=== PATIENT | female | born 2000 | race Caucasian/White ===

== ENCOUNTER 2023-10-30 05:50 | Emergency (ER) | payer BC, SELFPAY ==
[2023-10-30 05:50] VITALS: BP 147/95; PULSE 147; RESP 28; TEMP 36.1; O2SAT 95; BMI 24.7
--- NOTE | 2023-10-30 06:07 | RAD_ITS ---
STUDY: X-RAY CHEST REASON FOR EXAM: Female, 23 years old. Dyspnea TECHNIQUE: Frontal view of the chest COMPARISON: None. FINDINGS: The lungs are clear. There are no pleural effusions. There is no pneumothorax. The heart is normal in size. The visualized osseous structures are within normal limits. RAD/Chest 1 View (Portable) IMPRESSION: No acute thoracic pathology. Electronically Signed: Desean Gray MD at 7:25 EDT ,
--- NOTE | 2023-10-30 06:07 | ED.VIS.DYS ---
HPI History of Present Illness Chief Complaint: Asthma Informant: patient and spouse/S.O. Narrative Narrative: 23-year-old female presenting to the emergency room with a chief complaint of asthma. Patient states she has had asthma for many years. Her current therapy includes Advair and her rescue inhaler. She also has a history of allergies as well as eczema. She was seeing pulmonology in [place] but she moved here last weekend. She notes that she has noted over the past couple days she has been using her inhaler more than normal. However when she woke this morning around 5 AM she noted herself to be extremely short of breath. She notes wheezing. No fevers. Minor rhinorrhea. [facility] Medical History Anxiety Allergies Seizure Asthma Home Medications ?Medication ?Instructions ?Recorded ?Last Taken ?Type albuterol sulfate 90 mcg/actuation 2 inh inhalation Q4H PRN shortness 10/30/23 Unknown History aerosol inhaler (Proventil HFA) of breath or wheezing fexofenadine 60 mg tablet (Dottie 60 mg PO BID 10/30/23 Unknown History Allergy) Allergy/AdvReac Type Severity Reaction Status Date / Time No Known Allergies Allergy Verified 10/30/23 05:51 Social History Smoking Status: Never smoker ROS ROS ED Constitutional Constitutional ED: Denies chills, fever(s) or weight loss Eyes Eyes: Denies change in vision or diplopia ENT ENT ED: Reports rhinorrhea; Denies ear pain or sore throat Cardiovascular Cardiovascular: Denies chest pain, orthopnea, palpitations or racing heartbeat Respiratory/Chest Respiratory/Chest: Reports dyspnea and dyspnea on exertion; Denies cough or orthopnea Gastrointestinal Gastrointestinal: Denies abdominal pain, diarrhea, nausea or vomiting Genitourinary Genitourinary ED: Denies dysuria, hematuria or urinary frequency Musculoskeletal Musculoskeletal: Denies arthralgias or myalgias Integumentary Denies abscess or rash Neurologic Neurologic: Denies headache(s) or weakness Psychiatric Psychiatric: Denies anxiety, depression, suicidal ideation or suicidal thoughts Endocrine Endocrinology: Denies polydipsia, polyphagia or polyuria Allergic/Immunologic Allergic/Immunologic ED: Denies mouth swelling, tongue swelling or urticaria EXAM Physical Exam Const Vital Signs: 10/30/23 05:50 10/30/23 05:50 10/30/23 06:11 Temperature 96.9 F L Temperature Source Temporal Pulse Rate 147 H 121 H Respiratory Rate 28 H 18 Respiratory Effort Short of Breath Labored Respiratory Pattern Normal Blood Pressure 147/95 H Blood Pressure Mean 112 Pulse Ox 95 Oxygen Delivery Method Room Air 10/30/23 06:25 Temperature Temperature Source Pulse Rate 111 H Respiratory Rate 20 H Respiratory Effort Respiratory Pattern Blood Pressure Blood Pressure Mean Pulse Ox Oxygen Delivery Method Positive well nourished and well developed General Appearance ED: well developed HEENT Reports normocephalic, head/scalp atraumatic and moist mucous membranes Eyes PERRL and EOMs intact bilaterally Neck no lymphadenopathy, supple and no JVD Resp Resp Narrative: Patient appears tachypneic but is not demonstrating any retractions or significant accessory muscle use. Auscultation: wheezes expiratory wheezes, inspiratory wheezes and throughout and diminished lung sounds bilateral and diffuse Cardio regular rate, regular rhythm and no murmurs Rate: tachycardic GI normal to inspection, nondistended, normoactive bowel sounds and non-tender Palpation: soft Back/Spine no CVA tenderness and normal ROM Extremity normal to inspection General Extremety ED: Negative for edema General Extremity: Negative for edema Neuro oriented x3 and CN's II-XII intact bilaterally Sensorium / Orientation: alert Motor Exam: strength 5/5 throughout Psych mental status grossly normal Mood & Affect: Negative for depressed or tearful Skin no rashes or lesions noted and no wounds MDM MDM MDM Narrative Medical decision making narrative: Differential diagnosis includes but not limited to acute bronchitis with bronchospasm asthma exacerbation pneumonia pleural effusion pneumothorax My independent interpretation of the chest x-ray is no acute process. Patient received DuoNeb and albuterol aerosols as well as prednisone. Repeat examination finds the patient to be feeling significantly better with improved aeration. She states she has enough albuterol nebulizer solution at home. She needs a refill on her rescue inhaler and I will also be writing for burst dose prednisone. I can refer her to local pulmonology as she is new to the area. Patient to return if worsening or concerns Radiography Diagnostic Testing: Clinical Impression(s) from Imaging Studies Chest X-Ray 10/30/23 06:07 IMPRESSION: No acute thoracic pathology. Electronically Signed: Desean Gray MD at 7:25 EDT , Discharge Plan Triage Chief Complaint: Asthma ED Provider: Bairon Landrum Dx/Rx/DC Orders Prescriptions: No Action albuterol sulfate [Proventil HFA] 90 mcg/actuation HFA aerosol inhaler 2 inh inhalation Q4H PRN (Reason: shortness of breath or wheezing) fexofenadine [Dottie Allergy] 60 mg tablet 60 mg PO BID Primary Care Provider: Care Physician,No Primary Referrals: NOT,DEFINED [Non-Staff] - Print Language: Azeri
[2023-10-30 06:11] VITALS: PULSE 121; RESP 18
[2023-10-30] MEDS: Ipratropium/Albuterol Sulfate 3 ML AMPUL.NEB INHALATION (06:11)
[2023-10-30] MEDS: predniSONE 20 MG Tablet 60 MG PO (06:16)
[2023-10-30 06:25] VITALS: PULSE 111; RESP 20
[2023-10-30] MEDS: Albuterol 2.5 MG/3 ML VIAL.NEB. INHALATION ×3 (06:25)
[2023-10-30 07:37] VITALS: BP 128/76; PULSE 84; RESP 17; TEMP 36.7; O2SAT 99
== END 2023-10-30 07:39 | disposition home or self-care (01) ==
PROVIDERS: Emergency Provider Emergency Medicine; Visit Provider Emergency Medicine
DX: J45.909 Unspecified asthma, uncomplicated (principal); Z79.51 Long term (current) use of inhaled steroids
CPT/HCPCS: 71045; 94640; 99283

== ENCOUNTER 2023-11-25 19:05 | Emergency (ER) | payer BC, SELFPAY ==
[2023-11-25 19:05] VITALS: BP 134/92; PULSE 115; RESP 25; TEMP 36.1; O2SAT 97; BMI 24.0
[2023-11-25 19:23] VITALS: PULSE 100; RESP 18
[2023-11-25] MEDS: Albuterol 2.5 MG/3 ML VIAL.NEB. INHALATION ×2 (19:23→20:30)
[2023-11-25 19:27] VITALS: O2SAT 98
[2023-11-25 20:05] VITALS: BP 124/92; PULSE 108; RESP 17; O2SAT 96
[2023-11-25 20:30] VITALS: PULSE 110; RESP 18
[2023-11-25] MEDS: Albuterol Sulfate 8 gm Inhaler (60 puffs) 2 PUFF INHALATION (20:30)
--- NOTE | 2023-11-25 20:34 | ED.VIS.DYS ---
HPI History of Present Illness Chief Complaint: Asthma Informant: patient Narrative Narrative: Patient 23-year-old female with history of asthma as well as multiple environmental allergies. She is presenting to the ER today for worsening shortness of breath. She states she ran out of her albuterol inhaler 3 to 4 days ago and her breathing's been getting worse. She has associated chest tightness. She states that she uses her inhaler 4-5 times a day. She is post to be on some sort of maintenance inhaler (she thinks it might be Advair) as well as a daily allergy medicine?Dottie but is not good at taking medicines and does not take them regularly. She states that she was seen in the ER about 2 weeks ago for an asthma exacerbation. At that time she had been prescribed steroids but did not take them all the way. She did take 60 mg of prednisone prior to arrival because of her respiratory symptoms. She denies any recent fevers. She notes she recently relocated from [place] to [place] and is living in her boyfriend's basement. She thinks living in the basement is triggering her breathing. No fever reported. No other complaints or concerns at this time. [facility] Medical History Anxiety Allergies Seizure Asthma Home Medications ?Medication ?Instructions ?Recorded ?Last Taken ?Type albuterol sulfate 90 mcg/actuation 2 inh inhalation Q4H PRN shortness 10/30/23 Unknown History aerosol inhaler (Proventil HFA) of breath or wheezing albuterol sulfate 90 mcg/actuation 2 puff inhalation Q4H PRN PRN 10/30/23 Unknown Rx aerosol inhaler (Ventolin HFA) Wheezing ##1 fexofenadine 60 mg tablet (Dottie 60 mg PO BID 10/30/23 Unknown History Allergy) levetiracetam 250 mg tablet 250 mg PO Q12H 11/25/23 Unknown History (Keppra) prednisone 20 mg tablet 40 mg (2 x 20 mg) PO DAILY #8 tabs 11/25/23 Unknown Rx Allergy/AdvReac Type Severity Reaction Status Date / Time No Known Allergies Allergy Verified 11/25/23 19:05 Social History Smoking Status: Never smoker ROS ROS ED Constitutional Constitutional ED: Denies chills or fever(s) Cardiovascular Cardiovascular: Denies chest pain or palpitations Respiratory/Chest Respiratory/Chest: Reports cough and dyspnea; Denies sputum Gastrointestinal Gastrointestinal: Denies nausea or vomiting Neurologic Neurologic: Denies weakness EXAM Physical Exam Const Vital Signs: 11/25/23 19:05 11/25/23 19:23 11/25/23 19:27 Temperature 96.9 F L Temperature Source Temporal Pulse Rate 115 H 100 Respiratory Rate 25 H 18 Respiratory Effort Short of Breath Respiratory Depth Shallow Respiratory Pattern Normal Tachypnea Blood Pressure 134/92 H Blood Pressure Mean 106 Pulse Ox 97 Oxygen Delivery Method Room Air Room Air 11/25/23 20:05 Temperature Temperature Source Pulse Rate 108 H Respiratory Rate 17 Respiratory Effort Respiratory Depth Respiratory Pattern Blood Pressure 124/92 H Blood Pressure Mean 102 Pulse Ox 96 Oxygen Delivery Method Room Air Positive well nourished and well developed General Appearance ED: well developed and NAD HEENT Reports moist mucous membranes Eyes PERRL and EOMs intact bilaterally Neck supple and no JVD Chest Wall Chest Narrative: No chest wall tenderness or crepitus appreciated Resp normal respiratory effort Resp Narrative: Scattered in-store expiratory wheezing especially at the bases present Auscultation: Negative for rhonchi or diminished lung sounds Cardio regular rate and regular rhythm GI non-tender and non-distended Extremity normal to inspection General Extremety ED: Negative for edema General Extremity: Negative for edema Neuro oriented x3 Sensorium / Orientation: alert Motor Exam: Negative for general weakness Psych mental status grossly normal Skin no wounds MDM MDM MDM Narrative Medical decision making narrative: Patient is evaluated for worsening wheezing and chest tightness. She reports this feels like an asthma exacerbation. She reports poorly controlled asthma. Patient received an albuterol treatment prior to my arrival. She states she is feeling much better and her chest tightness has resolved. She is requesting a refill of albuterol inhaler. Patient is also scattered wheezing will be given a second albuterol treatment. Patient states she does have a nebulizer machine at home but is requesting other tubing were used today. This be given to her. Patient counseled at length the importance of compliance with her maintenance medications as well as following up with a primary care doctor. Will be given referral. Is given return precautions. Will be given a prescription for 4 more days of prednisone. Patient and significant other verbalized agreement or stands plan. Discharged home in stable improved condition. As patient has wheezing respiratory symptoms relieved with aerosols I do not suspect a more serious process such as pneumothorax, pneumonia or pulmonary emboli. I do not think she requires further workup at this time as she overall is quite well-appearing. Discharge Plan Triage Chief Complaint: Asthma ED Provider: Maida Buckley Dx/Rx/DC Orders Clinical Impression: Acute asthma exacerbation Instructions: ED Asthma, Acute (Adult) Prescriptions: New prednisone 20 mg tablet 40 mg PO DAILY Qty: 8 0RF No Action albuterol sulfate [Proventil HFA] 90 mcg/actuation HFA aerosol inhaler 2 inh inhalation Q4H PRN (Reason: shortness of breath or wheezing) fexofenadine [Dottie Allergy] 60 mg tablet 60 mg PO BID albuterol sulfate [Ventolin HFA] 90 mcg/actuation HFA aerosol inhaler 2 puff inhalation Q4H PRN PRN (Reason: Wheezing) Qty: 1 0RF levetiracetam [Keppra] 250 mg tablet 250 mg PO Q12H Patient Comments: pt unsure if this is the right dosage Primary Care Provider: Care Physician,No Primary Referrals: Renay Rojo [Non-Staff] - 1-2 Weeks Care Physician,No Primary [Primary Care Provider] - Activity Restrictions/Additional Instructions: It is very important to use your maintenance inhaler and take your allergy medicine daily as recommended. Please use albuterol either nebulizer or metered-dose inhaler every 4-6 hours as needed for symptoms. Take all steroids as prescribed. Please follow-up with your primary care doctor. Return if you have a progression worsening your symptoms. Print Language: Indonesian Disposition Disposition: Home, Self Care
== END 2023-11-25 21:05 | disposition home or self-care (01) ==
LOC: ED 21:03
PROVIDERS: Emergency Provider Emergency Medicine; Visit Provider Emergency Medicine
DX: J45.901 Unspecified asthma with (acute) exacerbation (principal); Z79.51 Long term (current) use of inhaled steroids
CPT/HCPCS: 94640; 99283

== ENCOUNTER 2024-04-14 06:48 | Emergency (ER) | payer BC, SELFPAY ==
[2024-04-14 06:48] VITALS: BP 136/83; PULSE 134; RESP 24; TEMP 36.4; O2SAT 91; BMI 25.5
[2024-04-14 06:56] VITALS: PULSE 112
--- NOTE | 2024-04-14 07:03 | ED.VIS.DYS ---
HPI History of Present Illness Chief Complaint: Asthma Informant: patient Narrative Narrative: 24-year-old female history of allergies asthma and eczema presenting to the emergency room with dyspnea. Patient states that she has had progressively worsening breathing over the past 2 days. She woke during the night with worsening shortness of breath. [facility] Medical History Anxiety Allergies Seizure Asthma Home Medications ?Medication ?Instructions ?Recorded ?Last Taken ?Type albuterol sulfate 90 mcg/actuation 2 inh inhalation Q4H PRN shortness 10/30/23 Unknown History aerosol inhaler (Proventil HFA) of breath or wheezing albuterol sulfate 90 mcg/actuation 2 puff inhalation Q4H PRN PRN 10/30/23 Unknown Rx aerosol inhaler (Ventolin HFA) Wheezing ##1 fexofenadine 60 mg tablet (Dottie 60 mg PO BID 10/30/23 Unknown History Allergy) albuterol sulfate 90 mcg/actuation 2 puff inhalation Q4H PRN PRN 04/14/24 Unknown Rx aerosol inhaler (Ventolin HFA) Wheezing ##1 prednisone 20 mg tablet 60 mg (3 x 20 mg) PO DAILY #15 04/14/24 Unknown Rx TABLETS Allergy/AdvReac Type Severity Reaction Status Date / Time No Known Allergies Allergy Verified 04/14/24 06:49 Social History Smoking Status: Never smoker [facility] ED Constitutional Constitutional ED: Denies chills, fever(s) or weight loss Eyes Eyes: Denies change in vision or diplopia ENT ENT ED: Denies ear pain, rhinorrhea or sore throat Cardiovascular Cardiovascular: Denies chest pain, orthopnea, palpitations or racing heartbeat Respiratory/Chest Respiratory/Chest: Reports cough, dyspnea and dyspnea on exertion; Denies orthopnea Gastrointestinal Gastrointestinal: Denies abdominal pain, diarrhea, nausea or vomiting Genitourinary Genitourinary ED: Denies dysuria, hematuria or urinary frequency Musculoskeletal Musculoskeletal: Denies arthralgias or myalgias Integumentary Denies abscess or rash Neurologic Neurologic: Denies headache(s) or weakness Psychiatric Psychiatric: Denies anxiety, depression, suicidal ideation or suicidal thoughts Endocrine Endocrinology: Denies polydipsia, polyphagia or polyuria Allergic/Immunologic Allergic/Immunologic ED: Denies mouth swelling, tongue swelling or urticaria EXAM Physical Exam Const Vital Signs: 04/14/24 06:48 04/14/24 06:48 04/14/24 06:56 Temperature 97.5 F L Temperature Source Oral Pulse Rate 134 H 112 H Respiratory Rate 24 H Respiratory Effort Short of Breath Respiratory Depth Shallow Respiratory Pattern Tachypnea Blood Pressure 136/83 H Blood Pressure Mean 100 Pulse Ox 91 Oxygen Delivery Method Room Air 04/14/24 07:15 04/14/24 07:26 04/14/24 07:35 Temperature 98 F Temperature Source Pulse Rate 139 H 132 H 134 H Respiratory Rate 26 H 20 H 22 H Respiratory Effort Respiratory Depth Respiratory Pattern Normal Blood Pressure 118/85 H 124/89 H Blood Pressure Mean 96 100 Pulse Ox 93 97 Oxygen Delivery Method Room Air Positive well nourished and well developed General Appearance ED: well developed and NAD HEENT Reports normocephalic, head/scalp atraumatic and moist mucous membranes Eyes PERRL and EOMs intact bilaterally Neck no lymphadenopathy, supple and no JVD Resp normal respiratory effort Auscultation: wheezes expiratory wheezes and inspiratory wheezes Cardio regular rate, regular rhythm and no murmurs Rate: tachycardic GI normal to inspection, nondistended, normoactive bowel sounds and non-tender Palpation: soft Back/Spine no CVA tenderness and normal ROM Extremity normal to inspection General Extremety ED: Negative for edema General Extremity: Negative for edema Neuro oriented x3 and CN's II-XII intact bilaterally Sensorium / Orientation: alert Motor Exam: strength 5/5 throughout Psych mental status grossly normal Mood & Affect: Negative for depressed or tearful Skin no wounds Skin Narrative: eczema MDM MDM MDM Narrative Medical decision making narrative: Differential diagnosis includes but not limited to asthma exacerbation pneumonia pneumothorax pleural effusion or bronchitis Patient received prednisone 60 mg as well as 2 DuoNebs. Pulse ox is up to 97%. She is tachycardic and shaky most likely from the albuterol. There are improved breath sounds bilaterally she overall feels better. She needs a new inhaler which I will write for. She states she has plenty of solution for the nebulizers at home. She also be placed on burst prednisone. She will be given pulmonology for follow-up if she wishes. Patient to return if worsening or concerns History & Record Review Discussion w/independent historian: Patient Discharge Plan Triage Chief Complaint: Asthma ED Provider: Bairon Landrum Dx/Rx/DC Orders Clinical Impression: Asthma exacerbation, Acute dyspnea Instructions: What Is Asthma Prescriptions: New prednisone 20 mg tablet 60 mg PO DAILY Qty: 15 0RF albuterol sulfate [Ventolin HFA] 90 mcg/actuation HFA aerosol inhaler 2 puff inhalation Q4H PRN PRN (Reason: Wheezing) Qty: 1 0RF Rx Instructions: with spacer No Action albuterol sulfate [Proventil HFA] 90 mcg/actuation HFA aerosol inhaler 2 inh inhalation Q4H PRN (Reason: shortness of breath or wheezing) fexofenadine [Dottie Allergy] 60 mg tablet 60 mg PO BID albuterol sulfate [Ventolin HFA] 90 mcg/actuation HFA aerosol inhaler 2 puff inhalation Q4H PRN PRN (Reason: Wheezing) Qty: 1 0RF Primary Care Provider: Care Physician,No Primary Referrals: Jd Hinds DO [Med Staff - Active Staff] - As Needed (for pulmonology evaluation if needed) Care Physician,No Primary [Primary Care Provider] - Print Language: Setswana Disposition Disposition: Home, Self Care
[2024-04-14 07:15] VITALS: BP 118/85; PULSE 139; RESP 26; O2SAT 93
[2024-04-14] MEDS: Ipratropium/Albuterol Sulfate 3 ML AMPUL.NEB INHALATION ×2 (07:20)
--- NOTE | 2024-04-14 07:22 | EKG12_ITS ---
Test Reason : DYSP Blood Pressure : */* mmHG Vent. Rate : 132 BPM Atrial Rate : 132 BPM P-R Int : 138 ms QRS Dur : 74 ms QT Int : 288 ms P-R-T Axes : 86 -41 81 degrees QTcB Int : 426 ms Sinus tachycardia Right atrial enlargement Left axis deviation Pulmonary disease pattern Inferior infarct , age undetermined Abnormal ECG Confirmed by CHANDNI PRASAD, VAL ([id number]), editor magazine RUTH LACY ([id number]) on 04/16/2024 7:24:53 AM Referred By: NBA Confirmed By: VAL TARIQ MD
[2024-04-14 07:26] VITALS: PULSE 132; RESP 20
[2024-04-14 07:35] VITALS: BP 124/89; PULSE 134; RESP 22; TEMP 36.6; O2SAT 97
[2024-04-14] MEDS: predniSONE 20 MG Tablet 60 MG PO (07:36)
== END 2024-04-14 08:57 | disposition home or self-care (01) ==
PROVIDERS: Emergency Provider Emergency Medicine; Visit Provider Emergency Medicine
DX: J45.901 Unspecified asthma with (acute) exacerbation (principal); R06.00 Dyspnea, unspecified
CPT/HCPCS: 93005; 94640; 99283

== ENCOUNTER 2024-07-11 18:16 | Emergency (ER) | payer BC, SELFPAY ==
[2024-07-11 18:17] VITALS: BP 148/96; PULSE 130; RESP 22; TEMP 36; O2SAT 97; BMI 23.5
--- NOTE | 2024-07-11 20:12 | EDS_ITS ---
HPI HPI - GI History of Present Illness Chief Complaint: Diarrhea Informant: patient Abdominal Pain/Flank Pain Onset: Today Context: Gradual Onset Timing: Intermittent Quality: Cramping Current Severity: Gone Maximum Severity: Mild Worsened by: Nothing Relieved by: Nothing Nausea/Vomiting/Emesis GI Symptom: Positive for Nausea and Vomiting Onset: Today Severity: Mild Diarrhea/Melena/Hematochezia GI Symptom: Positive for Diarrhea Onset: Today Stool Quality: Positive for Loose Severity: Mild Associated Symptoms Associated Symptoms: Negative for Dysuria, Frequency, Hematuria or Urgency Narrative Narrative: 24-year-old female history of anxiety, seizures and asthma. Has had nausea vomiting diarrhea today. Abdominal cramping. No fever. No dysuria. No hematemesis. No melena. No prior abdominal surgeries. Says her last menstrual period was 2 weeks ago and is not believe she is . Prior similar symptoms: Yes Recent Illness/Hospitalization: No [facility] Medical History Anxiety Allergies Seizure Asthma Home Medications ?Medication ?Instructions ?Recorded ?Last Taken ?Type albuterol sulfate 90 mcg/actuation 2 inh inhalation Q4 H PRN shortness 10/30/23 Unknown History aerosol inhaler (Proventil HFA) of breath or wheezing albuterol sulfate 90 mcg/actuation 2 puff inhalation Q 4H PRN PRN 10/30/23 Unknown Rx aerosol inhaler (Ventolin HFA) Wheezing ##1 fexofenadine 60 mg tablet (Dottie 60 mg PO BID Unknown History Allergy) albuterol sulfate 90 mcg/actuation 2 puff inhalation Q 4H PRN PRN 04/14/24 Unknown Rx aerosol inhaler (Ventolin HFA) Wheezing ##1 Allergy/AdvReac Type Severity Reaction Status Date / Time No Known Allergies Allergy Verified 07/11/24 18:17 Social History Smoking Status: Never smoker ROS ROS ED ROS Narrative Nausea, vomiting and diarrhea. Constitutional Constitutional ED: Denies chills or fever(s) ENT ENT ED: Denies ear pain Cardiovascular Cardiovascular: Denies chest pain Respiratory/Chest Respiratory/Chest: Denies cough Gastrointestinal Gastrointestinal: Reports abdominal pain, diarrhea, nausea and vomiting; Denies constipation or melena Genitourinary Genitourinary ED: Denies dysuria or hematuria Musculoskeletal Musculoskeletal: Denies arthralgias Integumentary Denies abscess Neurologic Neurologic: Denies headache(s) Psychiatric Psychiatric: Denies anxiety Endocrine Endocrinology: Denies polydipsia Hematologic/Lymphatic Hematologic/Lymphatic: Denies easy bleeding Allergic/Immunologic Allergic/Immunologic ED: Denies mouth swelling, tongue swelling or urticaria EXAM Physical Exam Narrative Exam Narrative: Well-appearing 24-year-old female. Vital signs are stable she is tachycardic when she initially presented in triage. That was almost 2 hours ago. H EENT exam pupils round reactive light. Mildly dry mucous membranes. No trauma. Neck nontender no JVD. No lymphadenopathy. Lungs clear to auscultation bilaterally. Heart tachycardic rate about 110 no murmur. Chest wall and ribs nontender. Abdomen soft nontender. Normal bowel sounds no peritoneal signs. No distention. No hernia or mass. No obstruction. Right upper and right lower quadrant and epigastric region are completely nontender. Moving all 4 extremities. Nontender no edema. Normal strength and range of motion. Back nontender. Neurologically she is awake alert. Answer questions following commands. NIH 0. Exam consistent with viral gastroenteritis. Mild dehydration. Const Vital Signs: 07/11/24 18:17 Temperature 96.8 F L Temperature Source Temporal Pulse Rate 130 H Respiratory Rate 22 H Blood Pressure 148/96 H Blood Pressure Mean 113 Pulse Ox 97 Oxygen Delivery Method Room Air Positive well nourished and well developed; Negative for obese, cachectic, contractures or unkempt General Appearance ED: well developed and NAD; Negative for unkempt, cachectic, contractures or pallor Nutritional Appearance: Negative for cachectic or obese HEENT Reports dry mucous membranes normocephalic and atraumatic Mouth ED: Yes dry mucous membranes Mouth: dry mucous membranes Eyes PERRL and EOMs intact bilaterally Neck no lymphadenopathy, supple and no JVD Resp normal respiratory effort and clear to auscultation bilaterally Effort and Inspection: Negative for respiratory distress Auscultation: Negative for rales, rhonchi or wheezes Cardio regular rhythm, S1 normal heart sound, S2 normal heart sound and no murmurs; Negative for regular rate Rate: tachycardic GI non-tender, non-distended and no masses Inspection: Negative for abdominal distention Auscultation: normoactive bowel sounds Palpation: soft; Negative for tender, guarding, mass, pulsatile mass or rebound tenderness present Back/Spine no CVA tenderness General Back: Negative for CVA tenderness Cervical Spine: Negative for cervical spine tenderness Thoracic Spine / Upper Back: Negative for thoracic spinal tenderness Lumbar Spine / Lower Back: Negative for lumbar spinal tenderness Coccyx: Negative for other Extremity full ROM General Extremety ED: Negative for edema or tenderness General Extremity: Negative for edema Neuro CN's II-XII intact bilaterally and moves all extremities Sensorium / Orientation: alert, oriented to person, oriented to place and oriented to time; Negative for orientation impaired, confused, lethargic or stuporous Motor Exam: strength 5/5 throughout; Negative for general weakness or strength abnormal Psych mental status grossly normal and thought process normal Appearance: Negative for unkempt Attitude: No agitated Mood & Affect: Negative for depressed, anxious or tearful Skin no wounds General Skin Exam: Negative for jaundice or pallor Lesions: no lesions Rashes: no rashes Trauma: Negative for abrasion Nails: Negative for discolored MDM MDM MDM Narrative Medical decision making narrative: 24-year-old female nausea vomiting diarrhea. Exam is benign other than mild dehydration. There is no right upper or right lower quadrant tenderness there is no abdominal tenderness at all. She does not need any imaging or labs. IV fluids, Zofran and p.o. fluid challenge are reassessed. I believe this is secondary to a viral gastroenteritis. I went back to reevaluate the patient. Nurses told me that she left prior to receiving her IV nausea medication or fluids. History & Record Review Discussion w/independent historian: Patient Additional record(s) reviewed:: Prior ED visit and No prior records Discharge Plan Triage Chief Complaint: Diarrhea Other Complaint: Abd Pain ED Provider: Shukri Matias Dx/Rx/DC Orders Clinical Impression: Viral gastroenteritis, Eloped from emergency department Prescriptions: No Action albuterol sulfate [Proventil HFA] 90 mcg/actuation HFA aerosol inhaler 2 inh inhalation Q4H PRN (Reason: shortness of breath or wheezing) fexofenadine [Dottie Allergy] 60 mg tablet 60 mg PO BID albuterol sulfate [Ventolin HFA] 90 mcg/actuation HFA aerosol inhaler 2 puff inhalation Q4H PRN PRN (Reason: Wheezing) Qty: 1 0RF albuterol sulfate [Ventolin HFA] 90 mcg/actuation HFA aerosol inhaler 2 puff inhalation Q4H PRN PRN (Reason: Wheezing) Qty: 1 0RF Rx Instructions: with spacer Primary Care Provider: Care Physician,No Primary Referrals: Care Physician,No Primary [Primary Care Provider] - Print Language: Azeri Disposition Disposition: Elopement Discharge Date/Time: 07/11/24 20:51
--- NOTE | 2024-07-11 20:48 | ED.RN ---
this nurse was notified of pt leaving by registration. pt did not have an IV in. pt was registrated
== END 2024-07-11 20:51 | disposition left against medical advice (07) ==
LOC: ED 20:39
PROVIDERS: Emergency Provider Emergency Medicine; Visit Provider Emergency Medicine
DX: A08.4 Viral intestinal infection, unspecified (principal); E86.0 Dehydration
CPT/HCPCS: 99282; A4216; J2405

== ENCOUNTER 2024-07-12 06:53 | Emergency (ER) | payer BC, SELFPAY ==
[2024-07-12 06:53] VITALS: BP 146/91; PULSE 127; RESP 18; TEMP 36.7; O2SAT 96; BMI 23.5
--- NOTE | 2024-07-12 07:05 | EDS_ITS ---
HPI History of Present Illness Chief Complaint: Nausea/Vomiting [facility] Medical History Anxiety Allergies Seizure Asthma Home Medications ?Medication ?Instructions ?Recorded ?Last Taken ?Type albuterol sulfate 90 mcg/actuation 2 inh inhalation Q4 H PRN shortness 10/30/23 Unknown History aerosol inhaler (Proventil HFA) of breath or wheezing albuterol sulfate 90 mcg/actuation 2 puff inhalation Q 4H PRN PRN 10/30/23 Unknown Rx aerosol inhaler (Ventolin HFA) Wheezing ##1 fexofenadine 60 mg tablet (Dottie 60 mg PO BID Unknown History Allergy) albuterol sulfate 90 mcg/actuation 2 puff inhalation Q 4H PRN PRN 04/14/24 Unknown Rx aerosol inhaler (Ventolin HFA) Wheezing ##1 Allergy/AdvReac Type Severity Reaction Status Date / Time No Known Allergies Allergy Verified 07/12/24 06:53 Family History no significant family his Social History Smoking Status: Never smoker EXAM Physical Exam Const Vital Signs: 07/12/24 06:53 07/12/24 09:38 Temperature 98.1 F Temperature Source Oral Pulse Rate 127 H 89 Respiratory Rate 18 Blood Pressure 146/91 H 120/70 Blood Pressure Mean 109 86 Pulse Ox 96 Oxygen Delivery Method Room Air MDM MDM MDM Narrative Medical decision making narrative: HISTORY OF PRESENT ILLNESS: Chief complaint: Nausea vomiting abdominal pain 24-year-old female history of asthma, anxiety, seizures viral gastroenteritis presents with nausea, vomiting abdominal pain started last night. No recent travel, no sick contacts, recent antibiotics or hospitalizations. Denies history o, diarrhea f prior abdominal surgeries. Denies any new foods or cookouts. Denies hematemesis melena or hematochezia. Denies urinary frequency urgency or dysuria. REVIEW OF SYSTEMS: Pertinent positives:Nausea vomiting abdominal pain Pertinent negatives: Fever, hematemesis, melena PHYSICAL EXAM: Nursing triage notes reviewed, Vital signs reviewed Constitutional: please see mdm HENT: MMM Eyes: Pupils equal round and reactive to light, Extraocular muscles intact Neck: No stridor, no JVD, full neck ROM Lungs: Clear to auscultation, No wheezing or rales. No increased work of breathing, no conversational dyspnea, no accessory muscle use, no nasal flaring. No respiratory distress noted Heart: Regular rate and rhythm, No murmurs, No rubs and No gallops, 2+ distal pulses (radial, femoral, posterior tibial) in all extremities Abdomen: Soft, there is no tenderness, rigidity, rebound or guarding, no obvious peritoneal signs, no palpable pulsatile abdominal masses, no auscultated abdominal bruit : No CVAT Extremities: No edema Neuro: No new focal neurological deficits, cranial nerves II through XII intact, 5/5 strength in all present extremities. Intact sensation to light touch in all present extremities, 2+ reflexes bilateral patella tendons. Skin: No rash or lesions noted MEDICAL DECISION MAKING: Chief Complaint: please see HPI External records reviewed: Reviewed prior imaging studies. Reviewed ED visit from 07/11/2024, yesterday but apparently left without being seen. Factors affecting care: Asthma, viral gastroenteritis. Social determinants of health: Uses edible THC products History obtained from others: none Consults: none MDM Narrative: Patient was initially tachycardic with heart rate of 127 otherwise afebrile nontoxic-appearing. Exam with diffuse abdominal tenderness but no obvious peritoneal signs. I considered the following differential diagnosis: AAA, small bowel obstruction, abdominal perforation, appendicitis, pancreatitis, hepatobiliary pathology (acute cholecystitis), mesenteric ischemia, pathology (ie nephrolithiasis, pyelonephritis), cannabinol hyperemesis syndrome. I initially treated the patient with 1 L IV fluid, 1 mg of IV Haldol (given concern for cannabinol hyperemesis), 20 mg IV Pepcid. Given her second visit also obtain labs and a CT scan to rule out any life or limb threatening etiology. ALL IMAGES (IF OBTAINED) HAVE BEEN PERSONALLY REVIEWED AND INTERPRETED BY MYSELF. EKG with sinus tachycardia rate of 128, left ax deviation, otherwise normal intervals, no obvious STEMI, no obvious sign of significant electrolyte disturbance Urinalysis no evidence of UTI noted sign of dehydration with urine ketones Urine test is negative CT scan abdomen pelvis without contrast given lack of IV access showed no evidence of obvious acute intra-abdominal pathology On reexam evaluation of his abdominal pain was benign. Heart rate improved to 89. She was able tolerate p.o. Plan for discharge home with prescription for Phenergan. Suspect her presentation related to hyperemesis syndrome secondary to THC. The patient and/or family, caregivers express understanding. The patient and/or family, caregivers agrees with the plan. Shared decision making: I will have a discussion with the patient and or visitors regarding risk/benefits of further testing or admission. They will be made aware of of the risk/benefits inherent in this decision they will be given the opportunity to voice understanding. Total critical care time today provided was at least 0 minutes. This excludes separately billable procedures. Critical care time (if documented) is secondary to the patient having high probability of clinically significant/life threatening deterioration in the patient's condition which required my urgent intervention. Impression: 1. Acute abdominal pain 2. Nausea, vomiting, and diarrhea 3. Tachycardia Dispo: Discharge home This note was generated with Tech urSelf dictation software. It may contain incorrect words, spelling, and punctuation that were not noted in review of the chart prior to signing. Lab Data Labs: Laboratory Results - last 24 hr 07/12/24 07/12/24 07:20 09:30 WBC 19.2 H RBC 4.78 Hgb 14.9 Hct 45.3 MCV 94.8 MCH 31.2 MCHC 32.9 RDW Std Deviation 60.7 H RDW Coeff of Ivy 17.6 H Plt Count 393 MPV 10.4 Immature Gran % (Auto) 0.500 Neut % (Auto) 92.5 H Lymph % (Auto) 2.1 L [place] % (Auto) 4.5 Eos % (Auto) 0.0 Baso % (Auto) 0.4 Absolute Neuts (auto) 17.7 H Absolute Lymphs (auto) 0.41 L Nucleated RBC % 0 Urine Color Yellow Urine Clarity Clear Urine pH 5.0 Ur Specific [place] 1.025 Urine Protein 500 H Urine Glucose (UA) Normal Urine Ketones 150 A* Urine Occult Blood 25 H Urine Nitrite Negative Urine Bilirubin Negative Urine Urobilinogen Normal Ur Leukocyte Esterase Negative Urine RBC 0 SEEN Urine WBC 0 SEEN Ur Squamous Epith Cells 0-5 SEEN Urine Bacteria 0 SEEN Hyaline Casts 0-5 SEEN Urine Mucus 0 SEEN Urine Test Negative Radiography Diagnostic Testing: Clinical Impression(s) from Imaging Studies Abdomen/Pelvis CT 07/12/24 07:23 IMPRESSION: No evidence of acute intra-abdominal process. Reading Location: [id number] Discharge Plan Triage Chief Complaint: Nausea/Vomiting ED Provider: Simone Connolly Dx/Rx/DC Orders Prescriptions: No Action albuterol sulfate [Proventil HFA] 90 mcg/actuation HFA aerosol inhaler 2 inh inhalation Q4H PRN (Reason: shortness of breath or wheezing) fexofenadine [Dottie Allergy] 60 mg tablet 60 mg PO BID albuterol sulfate [Ventolin HFA] 90 mcg/actuation HFA aerosol inhaler 2 puff inhalation Q4H PRN PRN (Reason: Wheezing) Qty: 1 0RF albuterol sulfate [Ventolin HFA] 90 mcg/actuation HFA aerosol inhaler 2 puff inhalation Q4H PRN PRN (Reason: Wheezing) Qty: 1 0RF Rx Instructions: with spacer Primary Care Provider: Care Physician,No Primary Referrals: Care Physician,No Primary [Primary Care Provider] - Print Language: Kittitian
--- NOTE | 2024-07-12 07:13 | EKG12_ITS ---
Test Reason : GENERAL Blood Pressure : */* mmHG Vent. Rate : 128 BPM Atrial Rate : 128 BPM P-R Int : 122 ms QRS Dur : 72 ms QT Int : 322 ms P-R-T Axes : 74 -36 66 degrees QTcB Int : 470 ms Sinus tachycardia Right atrial enlargement Left axis deviation Abnormal ECG Confirmed by Herminio Nicolas ([id number]), order editor SARAI QUESADA ([id number]) on 07/15/2024 12:02:51 PM Referred By: YVONNE Confirmed By: Herminio Nicolas
--- NOTE | 2024-07-12 07:23 | CT_ITS ---
PROCEDURE: ABDOMEN/PELVIS WITHOUT CONT 07/12/2024 REASON FOR EXAM: DIFFUSE ABDOMINAL PAIN TECHNIQUE: Abdomen and pelvis CT without intravenous contrast. Noncontrast technique limits evaluation of the abdominal and pelvic viscera. Coronal and Sagittal reconstruction series were provided. One or more dose reduction techniques were used (e.g., Automated exposure control, adjustment of the mA and/or kV according to patient size, use of iterative reconstruction technique). PATIENT PREPARATION: Per protocol ORAL CONTRAST TYPE: None. COMPARISON: None available FINDINGS: The lung bases are clear. The liver, gallbladder, adrenal glands, kidneys, pancreas and spleen appear within limits. No renal stones or hydronephrosis. Abdominal aorta appears within limits on noncontrast imaging. No adenopathy. No bowel dilation or free air. Normal caliber appendix without secondary signs. The ovaries, uterus and bladder appear within limits. No free fluid. CT/Abdomen/Pelvis without Cont IMPRESSION: No evidence of acute intra-abdominal process. Reading Location: [id number]
[2024-07-12 07:26] LABS: Bacteria 0 SEEN /hpf (None Seen); Mucous, Urine 0 SEEN /hpf (<or=2+); Red Blood Cells-Urine 0 SEEN /hpf (0-5); White Blood Cells 0 SEEN /hpf (0-5)
[2024-07-12 07:35] LABS: Color, Urine Yellow (Yellow); Glucose, Dipstick Normal (Normal); Leukocyte Esterase-Dipstick Negative /ul (Negative); Nitrite-Dipstick Negative (Negative); Occult Blood-Urine 25 /ul (Negative); Protein-Dipstick 500 mg/dl (Negative); Specific Gravity, Urine 1.025 (1.002-1.030); Urine Bilirubin Dipstick Negative (Negative); Urine Clarity Clear (Clear); Urine Urobilinogen Normal (Normal)
[2024-07-12 07:36] LABS: Ketone-Dipstick 150 mg/dl (Negative)
[2024-07-12] MEDS: Haloperidol Lactate 5 MG/ML Vial 1 MG IM (07:41)
[2024-07-12 07:47] LABS: Squamous Epithelial Cells - UA 0-5 SEEN /hpf (5-10)
[2024-07-12 07:48] LABS: Hyaline Cast 0-5 SEEN /lpf (0-5)
[2024-07-12 08:11] LABS: Internal QC Validated? YES +Cl - CLEAR BKGD; Pregnancy, Urine Negative Negative
[2024-07-12 09:38] VITALS: BP 120/70; PULSE 89
[2024-07-12] MEDS: 0.9% Normal Saline (1000mL) 1,000 ML 999 ML IV ×2 (09:38→11:27)
[2024-07-12] MEDS: proMETHazine 25 MG/ML Syringe IM (09:42)
[2024-07-12] MEDS: Famotidine 200 MG/20 ML MDV 20 MG in 0.9% Normal Saline (Pres. free 8 ML 300 MG IV (09:42)
[2024-07-12 09:45] LABS: Absolute Lymphocyte Count 0.41 X10^3/uL (0.83-4.51); Absolute Neutrophil Count 17.7 X10^3/uL (2.0-7.7); Basophil# 0.08 X10^3/uL; Basophil% 0.4 % (0-1); Hematocrit 45.3 % (37-47); Hemoglobin 14.9 g/dL (12.0-15.0); Lymphocyte # 0.41 X10^3/ul (0.83-4.51); Lymphocyte % 2.1 % (19-41); Mean Corp Hgb Conc 32.9 g/dL (32-36); Mean Corpuscular Hgb 31.2 pg (27.0-32.0); Mean Corpuscular Volume 94.8 fL (81-99); Mean Platelet Vol. 10.4 fl (6.2-12.0); Monocyte# 0.87 X10^3/uL; Monocyte% 4.5 % (0-10); NRBC Flagged by Analyzer 0 % (0-5); Neutrophil # 17.72 X10^3/uL (2.7-7.7); Neutrophil % 92.5 % (47-70); POSITIVE DIFFERENTIAL YES; Platelet Count 393 K/mm3 (150-450); RBC Distribution Width CV 17.6 % (11.6-14.6); RBC Distribution Width SD 60.7 fl (35.1-43.9); Red Blood Count 4.78 M/mm3 (4.2-5.4); White Blood Count 19.2 K/mm3 (4.4-11.0)
[2024-07-12 11:00] VITALS: BP 118/72; PULSE 78; RESP 18; O2SAT 98
[2024-07-12 11:00] LABS: ALB/GLOB Ratio 1.3 RATIO (0.9-2.4); AST(SGOT) 38 U/L (<=31); Alanine Aminotransfer ALT/SGPT 19 U/L (<=34); Albumin, Serum 5.3 g/dL (3.5-5.0); Alkaline Phosphatase 74 U/L (35-104); Anion Gap 36 (5-15); BUN 13 mg/dL (4-19); BUN/Creat Ratio 13.4 RATIO (10-20); Calcium,Total 10.1 mg/dL (7.6-11.0); Carbon Dioxide 11.2 mmol/L (21.0-32.0); Chloride 88 mmol/L (98-108); EST Glomerular Filtration Rate 80 (>60); Estimated Creatinine Clearance 86.75 ml/min (50-250); Glucose 168 mg/dL (70-99); Lipase 97 U/L (13-75); Potassium 4.5 mmol/L (3.3-5.1); Protein, Total 9.3 g/dL (5.9-8.4); Sodium Level 135 mmol/L (133-145); Total Bilirubin 1.08 mg/dL (0.00-1.30)
[2024-07-12 11:29] LABS: Blood Gas Specimen Type VEN; O2 Delivery Device Not entered; SITE Not entered; VBG BASE EXCESS -12 mmol/L (-1.0-3.5); VBG Bicarbonate 14 mmol/L (22-26); VBG PO2 87 mmHg (25-40); VBG SO2 97 % (50-70); VBG TCO2 14 mmol/L (23-33); VBG pCO2 23.6 mmHg (41-51); VBG pH 7.37 (7.32-7.42)
[2024-07-12 12:16] LABS: BETA-HYDROXYBUTYRATE 7.3 mmol/L (0.0-0.3)
[2024-07-12 12:31] LABS: Anion Gap 25 (5-15); BUN 12 mg/dL (4-19); BUN/Creat Ratio 14.6 RATIO (10-20); Calcium,Total 8.9 mg/dL (7.6-11.0); Carbon Dioxide 12.2 mmol/L (21.0-32.0); Chloride 95 mmol/L (98-108); Creatinine, Serum 0.85 mg/dL (0.70-1.20); EST Glomerular Filtration Rate 98 (>60); Estimated Creatinine Clearance 102.06 ml/min (50-250); Glucose 142 mg/dL (70-99); Potassium 5.2 mmol/L (3.3-5.1); Sodium Level 133 mmol/L (133-145)
[2024-07-12 12:48] VITALS: BP 118/72; PULSE 78; RESP 18; TEMP 36.8; O2SAT 98
== END 2024-07-12 12:53 | disposition home or self-care (01) ==
PROVIDERS: Emergency Provider Emergency Medicine; Visit Provider Emergency Medicine
DX: R10.9 Unspecified abdominal pain (principal); R11.2 Nausea with vomiting, unspecified; R19.7 Diarrhea, unspecified; R00.0 Tachycardia, unspecified; E87.20 Acidosis, unspecified
CPT/HCPCS: 74176; 80048; 80053; 81001; 81025; 82010; 82803; 83690; 85025; 93005; 96361; 96372; 96374; 99283

== ENCOUNTER 2024-07-31 12:17 | Inpatient (IN) | payer BC, SELFPAY ==
[2024-07-31] VITALS (7 sets, daily range): BP systolic 134–157; BP diastolic 77–108; PULSE 79–100; RESP 16; TEMP 36.2–37.3; O2SAT 97–100; BMI 24.0; BMI 24.7
--- NOTE | 2024-07-31 12:58 | EX.ED.DYSGE1 ---
HPI History of Present Illness Chief Complaint: Complaint Informant: patient Onset/Context/Timing Onset: Yesterday Context: Gradual Onset Timing: Continuous Quality: Aching Location: Upper abdomen and lower thoracic back Worsened by: Nothing Relieved by: Nothing Narrative Narrative: Patient presents with upper abdominal pain that began yesterday. Patient states it is gradually getting worse. Patient states her pain is constant. Patient describes it as aching. Patient states it is mainly over the upper abdomen and radiates around to her back. Patient states nothing makes it worse and nothing makes it better. Patient admits to some nausea and vomiting. Patient denies any hematemesis or coffee-ground emesis. Patient denies any diarrhea, melena, or hematochezia. Patient is concerned that she has a urinary tract infection. [facility] Medical History Anxiety Allergies Seizure Asthma Home Medications ?Medication ?Instructions ?Recorded ?Last Taken ?Type albuterol sulfate 90 mcg/actuation 2 inh inhalation Q4H PRN shortness 10/30/23 Unknown History aerosol inhaler (Proventil HFA) of breath or wheezing albuterol sulfate 90 mcg/actuation 2 puff inhalation Q4H PRN PRN 10/30/23 Unknown Rx aerosol inhaler (Ventolin HFA) Wheezing ##1 fexofenadine 60 mg tablet (Dottie 60 mg PO BID 10/30/23 Unknown History Allergy) albuterol sulfate 90 mcg/actuation 2 puff inhalation Q4H PRN PRN 04/14/24 Unknown Rx aerosol inhaler (Ventolin HFA) Wheezing ##1 promethazine 25 mg tablet 25 mg PO Q6H PRN nausea and 07/12/24 Unknown Rx vomiting #20 tabs Allergy/AdvReac Type Severity Reaction Status Date / Time No Known Allergies Allergy Verified 07/31/24 12:18 Surgical History no surgical history no surgical history Social History (Updated 07/31/24 @ 13:[address] Maciej Nance DO) Smoking Status: Current every day smoker ROS ROS ED Constitutional Constitutional ED: Denies chills or fever(s) Eyes Eyes: Denies blurry vision or change in vision ENT ENT ED: Denies rhinorrhea or sore throat Cardiovascular Cardiovascular: Denies chest pain or palpitations Respiratory/Chest Respiratory/Chest: Denies cough or dyspnea Gastrointestinal Gastrointestinal: Reports abdominal pain, nausea and vomiting Genitourinary Genitourinary ED: Denies dysuria or hematuria Musculoskeletal Musculoskeletal: Reports back pain; Denies neck pain Integumentary Denies abscess or rash Neurologic Neurologic: Denies headache(s) or weakness Allergic/Immunologic Allergic/Immunologic ED: Denies mouth swelling or urticaria EXAM Physical Exam Const Vital Signs: 07/31/24 12:17 07/31/24 12:35 07/31/24 14:17 Temperature 99 F 98 F Temperature Source Temporal Temporal Pulse Rate 100 100 98 Respiratory Rate 16 16 16 Blood Pressure 148/100 H 148/100 H 154/102 H Blood Pressure Mean 116 116 119 Pulse Ox 98 99 98 Oxygen Delivery Method Room Air Positive well nourished and well developed Constitutional Narrative: BMI is 24.1 General Appearance ED: well developed and NAD HEENT Reports moist mucous membranes Neck supple and no JVD Resp normal respiratory effort and clear to auscultation bilaterally Cardio regular rate and regular rhythm GI non-distended Palpation: soft and tender epigastric, LUQ and RUQ; Negative for guarding or rebound tenderness present Back/Spine no CVA tenderness Extremity normal to inspection General Extremety ED: Negative for edema or tenderness General Extremity: Negative for edema Neuro oriented x3, CN's II-XII intact bilaterally and no sensory deficits noted Sensorium / Orientation: alert Motor Exam: strength 5/5 throughout Psych mental status grossly normal MDM MDM MDM Narrative Medical decision making narrative: Differential diagnosis includes gastritis, pancreatitis, cholecystitis, cholelithiasis, electrolyte abnormality, urinary tract infection, , and dehydration. CBC will be obtained to assess for leukocytosis and anemia. Comprehensive metabolic profile will be obtained to assess for hepatic function, renal function, and electrolyte abnormality. Lipase will be obtained to assess for pancreatitis. Urinalysis will be obtained to assess for urinary tract infection and hematuria. Urine hCG will be obtained to assess for . History & Record Review Additional record(s) reviewed:: Prior ED visit and Prior labs Lab Data Attestation: I reviewed the patient's lab results. Lab results narrative: CBC was reviewed. There is a mild leukocytosis of 13.3. The remainder is within normal limits. Comprehensive metabolic profile was reviewed. Glucose was slightly elevated at 130. AST was minimally elevated at 44. The remainder was essentially within normal limits. Lipase was reviewed and was elevated at 1063. Urinalysis was reviewed. There is no evidence of urinary tract infection or hematuria. Urine hCG was reviewed and was negative. Labs: Laboratory Results - last 24 hr 07/31/24 07/31/24 13:24 14:25 WBC 13.3 H RBC 4.35 Hgb 13.8 Hct 41.9 MCV 96.3 MCH 31.7 MCHC 32.9 RDW Std Deviation 58.4 H RDW Coeff of Ivy 16.4 H Plt Count 387 MPV 9.9 Immature Gran % (Auto) 0.300 Neut % (Auto) 88.4 H Lymph % (Auto) 4.5 L [place] % (Auto) 3.7 Eos % (Auto) 2.3 Baso % (Auto) 0.8 Absolute Neuts (auto) 11.7 H Absolute Lymphs (auto) 0.60 L Nucleated RBC % 0 Sodium 139 Potassium 3.9 Chloride 101 Carbon Dioxide 22.1 Anion Gap 16 H BUN 5 Creatinine 0.57 L Estim Creat Clear Calc 152.20 Est GFR (MDRD) Non-Af 129 BUN/Creatinine Ratio 8.5 L Glucose 130 H Calcium 9.5 Total Bilirubin 0.31 AST 44 H ALT 23 Alkaline Phosphatase 89 Total Protein 7.2 Albumin 4.1 Globulin 3.1 Albumin/Globulin Ratio 1.3 Lipase 1063 H Urine Color Yellow Urine Clarity Sl. Cloudy Urine pH 8.0 Ur Specific [place] 1.015 Urine Protein 30 H Urine Glucose (UA) Normal Urine Ketones 50 H Urine Occult Blood Negative Urine Nitrite Negative Urine Bilirubin Negative Urine Urobilinogen Normal Ur Leukocyte Esterase 25 H Urine RBC 0 SEEN Urine WBC 0-5 SEEN Ur Squamous Epith Cells 0-5 SEEN Urine Bacteria 1+ Urine Mucus 1+ Urine Test Negative Management Discussion w/another healthcare provider: Hospitalist Treatment and Re-Evaluation :: Patient was given IV fluids, morphine, and Zofran. Patient was still having some nausea and vomiting on reevaluation. Because of this, I recommended admission to the hospital. CT scan of the abdomen pelvis will be obtained to assess for cholelithiasis, cholecystitis, pancreatitis and pseudocyst. Case was discussed with the hospitalist. He wanted a call back when the CT scan was done and then he will admit the patient. Discharge Plan Dx/Rx/DC Orders Clinical Impression: Acute pancreatitis, Nausea and vomiting, Tobacco use Disposition Disposition: [facility]
[2024-07-31] MEDS: 0.9% Normal Saline (1000mL) 1,000 ML 999 ML IV (13:30)
[2024-07-31] MEDS: Morphine 4 MG/ML Syringe IV ×2 (13:31→18:03)
[2024-07-31] MEDS: Ondansetron 4 MG/2 ML Vial IV ×3 (13:31→18:03)
[2024-07-31 13:40] LABS: Absolute Neutrophil Count 11.7 X10^3/uL (2.0-7.7); Basophil% 0.8 % (0-1); Eosinophils% 2.3 % (0-5); Hematocrit 41.9 % (37-47); Hemoglobin 13.8 g/dL (12.0-15.0); Lymphocyte % 4.5 % (19-41); Mean Corp Hgb Conc 32.9 g/dL (32-36); Mean Corpuscular Hgb 31.7 pg (27.0-32.0); Mean Corpuscular Volume 96.3 fL (81-99); Mean Platelet Vol. 9.9 fl (6.2-12.0); Monocyte# 0.49 X10^3/uL; Monocyte% 3.7 % (0-10); NRBC Flagged by Analyzer 0 % (0-5); Neutrophil # 11.74 X10^3/uL (2.7-7.7); Neutrophil % 88.4 % (47-70); Platelet Count 387 K/mm3 (150-450); RBC Distribution Width CV 16.4 % (11.6-14.6); RBC Distribution Width SD 58.4 fl (35.1-43.9); Red Blood Count 4.35 M/mm3 (4.2-5.4); White Blood Count 13.3 K/mm3 (4.4-11.0)
[2024-07-31 14:04] LABS: ALB/GLOB Ratio 1.3 RATIO (0.9-2.4); AST(SGOT) 44 U/L (<=31); Alanine Aminotransfer ALT/SGPT 23 U/L (<=34); Albumin, Serum 4.1 g/dL (3.5-5.0); Alkaline Phosphatase 89 U/L (35-104); Anion Gap 16 (5-15); BUN 5 mg/dL (4-19); BUN/Creat Ratio 8.5 RATIO (10-20); Calcium,Total 9.5 mg/dL (7.6-11.0); Carbon Dioxide 22.1 mmol/L (21.0-32.0); Chloride 101 mmol/L (98-108); Creatinine, Serum 0.57 mg/dL (0.70-1.20); EST Glomerular Filtration Rate 129 (>60); Globulin 3.1 g/dL (2.2-4.2); Glucose 130 mg/dL (70-99); Potassium 3.9 mmol/L (3.3-5.1); Protein, Total 7.2 g/dL (5.9-8.4); Sodium Level 139 mmol/L (133-145); Total Bilirubin 0.31 mg/dL (0.00-1.30)
[2024-07-31 14:11] LABS: Lipase 1063 U/L (13-75)
[2024-07-31 14:31] LABS: Red Blood Cells-Urine 0 SEEN /hpf (0-5)
[2024-07-31 14:42] LABS: Color, Urine Yellow (Yellow); Glucose, Dipstick Normal (Normal); Ketone-Dipstick 50 mg/dl (Negative); Leukocyte Esterase-Dipstick 25 /ul (Negative); Nitrite-Dipstick Negative (Negative); Occult Blood-Urine Negative /ul (Negative); Protein-Dipstick 30 mg/dl (Negative); Specific Gravity, Urine 1.015 (1.002-1.030); Urine Bilirubin Dipstick Negative (Negative); Urine Clarity Sl. Cloudy (Clear); Urine Urobilinogen Normal (Normal)
[2024-07-31 14:48] LABS: Bacteria 1+ /hpf (None Seen); Mucous, Urine 1+ /hpf (<or=2+); Squamous Epithelial Cells - UA 0-5 SEEN /hpf (5-10); White Blood Cells 0-5 SEEN /hpf (0-5)
[2024-07-31 15:52] LABS: Internal QC Validated? YES +Cl - CLEAR BKGD; Pregnancy, Urine Negative Negative; Record Kit Lot#,Urine Preg 947241
--- NOTE | 2024-07-31 16:00 | CT_ITS ---
PROCEDURE: ABDOMEN/PELVIS W IV CONT ONLY N/A REASON FOR EXAM: ABDOMINAL PAIN TECHNIQUE: Abdomen and pelvis CT with intravenous contrast. Coronal and Sagittal reconstruction series were provided. PATIENT PREPARATION: Per protocol ORAL CONTRAST TYPE: None. CONTRAST: Isovue 370 VOLUME: 100 mL One or more dose reduction techniques were used (e.g., Automated exposure control, adjustment of the mA and/or kV according to patient size, use of iterative reconstruction technique. RADIATION DOSE SUMMARY: CTDlvol: 20 mGy DLP: 600 mGycm COMPARISON: CT abdomen pelvis 07/12/2024. FINDINGS: Lung bases: Unremarkable. The heart is normal in size. Liver: The liver is normal in size without focal hepatic mass. Diffuse hepatic steatosis. The major portal veins are patent. No biliary ductal dilation. Gallbladder: No radiopaque stones within the gallbladder. Spleen: Unremarkable. Pancreas: Development of ill-defined stranding and edema within the central mesentery, greatest surrounding the pancreatic head and body. Symmetric enhancement of the pancreatic parenchyma. No discrete fluid collection. Adrenals: No adrenal mass. Kidneys: No hydronephrosis or nephrolithiasis. Bladder: Decompressed. Reproductive Organs: Normal uterine size and contour. Ovaries are unremarkable. Bowel: The bowel loops are normal caliber. No abdominal ascites or free air. Normal appendix. Trace free fluid within the pelvic cul-de-sac. Lymph nodes: No suspicious lymph node enlargement. Vasculature: The abdominal aorta and IVC are normal. Bones: No aggressive osseous lesions. CT/Abdomen/Pelvis W IV Cont ONLY IMPRESSION: 1. Findings compatible with acute interstitial edematous pancreatitis (uncompli cated pancreatitis). 2. Diffuse hepatic steatosis. Reading Location: [id number]
--- NOTE | 2024-07-31 18:01 | HP.PCM.HOS_ITS ---
HPI - General General Date of Service: 07/31/24 Chief Complaint: Abdominal pain HPI Narrative PATRICIA VALENTINE, is a 24 F who presents with 1 day history of abdominal pain. Woke this morning at 06 30 with severe epigastric abdominal pain. Presented to the emergency room where it was noted that her lipase was 1063. CAT scan was ordered and did not show any clear to cholelithiasis but showed interstitial pancreatitis. Patient received pain medications as well as IV fluids. Patient admits to drinking 1/5 of liquor per day. Last drink was sometime last evening. Patient states that she can go days if not months without any alcohol and has no issues with alcohol withdrawal. She denies needs for any support in regards to abstaining from alcohol. Patient denies ever having had pancreatitis in the past. [facility] Medical History Anxiety Allergies Seizure Asthma Home Medications ?Medication ?Instructions ?Recorded ?Last Taken ?Type fexofenadine 60 mg tablet (Dottie 60 mg PO BID PRN AL KELLY 10/30/23 07/29/24 History Allergy) albuterol sulfate 0.63 mg/3 mL 0.63 mg inhalation Q8H PRN 07/31/24 Unknown History solution for nebulization shortness of breath or wheez ing albuterol sulfate 90 mcg/actuation 2 puff inhalation Q 4H PRN Wheezing 07/31/24 Unknown History aerosol inhaler (Ventolin HFA) fluticasone furoate 200 2 inh inhalation BID 5 Unknown History mcg-vilanterol 25 mcg/dose inhalation powder (Breo Ellipta) fluticasone propionate 50 1 spray intranasal DAILY PRN nasal 07/31/24 Unknown History mcg/actuation nasal congestion spray,suspension (24 Hour Allergy Relief) Allergy/AdvReac Type Severity Reaction Status Date / Time No Known Allergies Allergy Verified 07/31/24 12:18 no significant family history Surgical History no surgical history Social History (Updated 07/31/24 @ 18:[address] Maciej Beach DO) Smoking Status: Never smoker substance use type: marijuana ROS ROS Narrative Patient actively vomiting. States that the emesis is changed to neon green. All review of systems were negative except as mentioned above in the history of present illness and the other review of systems. Vital Signs Vital Signs Vital Signs: 07/31/24 12:17 07/31/24 12:35 07/31/24 14:17 Temperature 37.2 C 36.6 C Temperature Source Temporal Temporal Pulse Rate 100 100 98 Respiratory Rate 16 16 16 Blood Pressure 148/100 H 148/100 H 154/102 H Blood Pressure Mean 116 116 119 Pulse Ox 98 99 98 Oxygen Delivery Method Room Air 07/31/24 17:00 Temperature Temperature Source Pulse Rate 79 Respiratory Rate 16 Blood Pressure Blood Pressure Mean Pulse Ox 100 Oxygen Delivery Method Weight Weight: 71.9 kg Body Mass Index (BMI) 24.0 Physical Exam Narrative - Physical Exam General: Alert, Oriented x3, Cooperative. Retching while is in her room. HEENT: Atraumatic, PERRLA, EOMI, Normocephalic. Glasses Oral: Moist Mucosa, No Gingival or Mucosal Lesions/ Ulcerations Neck: Supple, No JVD, Negative Carotid Bruits Lungs: Clear to auscultation, Normal air movement Cardiovascular: Regular rate, Normal S1, Normal S2, No murmurs Abdomen: Bowel Sounds Present, Soft, epigastric tenderness. Non-Distended, No Hepato-splenomegaly Extremities: No clubbing, No cyanosis, No edema, Capillary Refill Less than 3 Seconds Skin: No rashes, No breakdown Musculoskeletal: No Tenderness to Palpation of Joints or Extremities Neurological: Moves all extremities spontaneously. Psych/Mental Status: Normal Affect, Appropriate Results Lab / Micro Data 07/31/24 13:24 07/31/24 13:24 Labs: Laboratory Results - last 24 hr 07/31/24 13:24: WBC 13.3 H, RBC 4.35, Hgb 13.8, Hct 41.9, MCV 96.3, MCH 31.7, MCHC 32.9, RDW Std Deviation 58.4 H, RDW Coeff of Ivy 16.4 H, Plt Count 387, MPV 9.9, Immature Gran % (Auto) 0.300, Neut % (Auto) 88.4 H, Lymph % (Auto) 4.5 L, [place] % (Auto) 3.7, Eos % (Auto) 2.3, Baso % (Auto) 0.8, Absolute Neuts (auto) 11.7 H, Absolute Lymphs (auto) 0.60 L, Nucleated RBC % 0, Sodium 139, Potassium 3.9, Chloride 101, Carbon Dioxide 22.1, Anion Gap 16 H, BUN 5, Creatinine 0.57 L , Estim Creat Clear Calc 152.20, Est GFR (MDRD) Non-Af 129, BUN/Creatinine Ratio 8.5 L, Glucose 130 H, Calcium 9.5, Total Bilirubin 0.31, AST 44 H, ALT 23, Alkaline Phosphatase 89, Total Protein 7.2, Albumin 4.1, Globulin 3.1, Albumin/Globulin Ratio 1.3, Lipase 1063 H 07/31/24 14:25: Urine Color Yellow, Urine Clarity Sl. Cloudy, Urine pH 8.0, Ur Specific [place] 1.015, Urine Protein 30 H, Urine Glucose (UA) Normal, Urine Ketones 50 H, Urine Occult Blood Negative, Urine Nitrite Negative, Urine Bilirubin Negative, Urine Urobilinogen Normal, Ur Leukocyte Esterase 25 H, Urine RBC 0 SEEN, Urine WBC 0-5 SEEN, Ur Squamous Epith Cells 0-5 SEEN, Urine Bacteria 1+, Urine Mucus 1+, Urine Test Negative Imaging Radiology Impression Abdomen/Pelvis CT 07/31/24 16:00 IMPRESSION: 1. Findings compatible with acute interstitial edematous pancreatitis (uncomplicated pancreatitis). 2. Diffuse hepatic steatosis. Reading Location: [id number] Assessment & Plan Assessment/Plan (1) Acute pancreatitis: PLAN: Suspect alcoholic given the patient's large quantities of alcohol that she drinks on a daily basis. CAT scan did not show any choledocholithiasis. Will check an MRCP. Check triglycerides as well. Supportive management with pain control with PRN acetaminophen, IV ketorolac, oxycodone and IV morphine. Antiemetics with Compazine and Zofran. Will check an MRCP No active GI coverage at this time (though will be available on the ). I do not feel the patient needs any urgent ERCP. Depending on the patient's clinical response and MRI findings, GI consultation may be warranted. Clear liquid diet. . (2) Alcohol abuse: PLAN: Last drink was on the . Patient has gone days and sometimes months without any alcohol and denies any history of alcohol withdrawal symptoms. Thiamine folate and supportive management this time. Patient does start manifesting alcohol withdrawal symptoms then phenobarbital taper would be in order. PLAN: Plan Chronic conditions * Asthma: Stable. Continue with albuterol and Breo Ellipta VTE prophylaxis with enoxaparin Discussed with the patient's significant other at bedside. Charges/Coding Visit Charges Inpatient E&M: 73600 Init Hosp L3
[2024-07-31] MEDS: 0.9% Normal Saline (1000mL) 1,000 ML 100 ML IV (18:03)
[2024-07-31] MEDS: 0.9% Normal Saline (1000mL) 1,000 ML 200 ML IV (20:00)
[2024-07-31] MEDS: oxyCODONE 5 MG Tablet PO (20:06)
[2024-07-31] MEDS: hydrOXYzine PAM 25 MG Capsule 50 MG PO (20:08)
[2024-08-01] MEDS: Morphine 4 MG/ML Syringe IV (00:21)
[2024-08-01] MEDS: Ondansetron 4 MG/2 ML Vial IV (00:21)
[2024-08-01] MEDS: 0.9% Saline Lock 10 ML Syringe IV ×4 (00:22→13:40)
[2024-08-01] MEDS: 0.9% Normal Saline (1000mL) 1,000 ML 200 ML IV (00:22)
[2024-08-01 02:00] VITALS: BP 133/80; PULSE 79; RESP 16; TEMP 36.8; O2SAT 97
[2024-08-01 05:47] LABS: Absolute Lymphocyte Count 1.02 X10^3/uL (0.83-4.51); Absolute Neutrophil Count 8.5 X10^3/uL (2.0-7.7); Basophil# 0.03 X10^3/uL; Basophil% 0.3 % (0-1); Eosinophil# 0.03 X10^3/uL; Eosinophils% 0.3 % (0-5); Hematocrit 35.4 % (37-47); Hemoglobin 11.8 g/dL (12.0-15.0); Lymphocyte # 1.02 X10^3/ul (0.83-4.51); Lymphocyte % 9.8 % (19-41); Mean Corp Hgb Conc 33.3 g/dL (32-36); Mean Corpuscular Hgb 32.3 pg (27.0-32.0); Mean Platelet Vol. 10.1 fl (6.2-12.0); Monocyte# 0.83 X10^3/uL; NRBC Flagged by Analyzer 0 % (0-5); Neutrophil # 8.45 X10^3/uL (2.7-7.7); Platelet Count 298 K/mm3 (150-450); RBC Distribution Width CV 16.8 % (11.6-14.6); RBC Distribution Width SD 60.6 fl (35.1-43.9); Red Blood Count 3.65 M/mm3 (4.2-5.4); White Blood Count 10.4 K/mm3 (4.4-11.0)
[2024-08-01 06:09] LABS: ALB/GLOB Ratio 1.5 RATIO (0.9-2.4); AST(SGOT) 24 U/L (<=31); Alanine Aminotransfer ALT/SGPT 15 U/L (<=34); Albumin, Serum 3.5 g/dL (3.5-5.0); Alkaline Phosphatase 80 U/L (35-104); Anion Gap 12 (5-15); BUN 6 mg/dL (4-19); BUN/Creat Ratio 12.1 RATIO (10-20); Calcium,Total 7.5 mg/dL (7.6-11.0); Carbon Dioxide 21.7 mmol/L (21.0-32.0); Chloride 105 mmol/L (98-108); Creatinine, Serum 0.51 mg/dL (0.70-1.20); EST Glomerular Filtration Rate 133 (>60); Globulin 2.3 g/dL (2.2-4.2); Glucose 103 mg/dL (70-99); Potassium 3.1 mmol/L (3.3-5.1); Protein, Total 5.9 g/dL (5.9-8.4); Sodium Level 138 mmol/L (133-145); Total Bilirubin 0.56 mg/dL (0.00-1.30); Triglycerides 52 mg/dL
[2024-08-01 08:06] LABS: Ferritin 54 ng/mL (22-378); Iron 117 ug/dL (50-170); Iron Binding Capacity,Total 321 ug/dL (250-450); Iron Binding Capacity,Unsat 204 ug/dL (228-428); Magnesium 1.3 mg/dL (1.5-2.2); Phosphorus 2.9 mg/dL (2.7-4.5); Vitamin B12 324 pg/mL (180-914)
[2024-08-01 08:15] VITALS: BP 146/102; PULSE 86; RESP 16; TEMP 36.9; O2SAT 100
[2024-08-01] MEDS: Folic Acid 1 MG Tablet PO (08:17)
[2024-08-01] MEDS: Potassium Chloride Oral Tablet 20 MEQ 40 MEQ PO (08:17)
[2024-08-01] MEDS: Enoxaparin 40 MG/0.4 ML Syringe SC (08:17)
[2024-08-01] MEDS: Ondansetron 8 MG Tablet PO (08:17)
[2024-08-01] MEDS: Thiamine Hydrochloride 100 MG Tablet PO (08:17)
[2024-08-01] MEDS: Ketorolac 15 MG/ML Vial IV ×2 (08:18→19:55)
--- NOTE | 2024-08-01 09:00 | MRI_ITS ---
PROCEDURE: MRCP ABDOMEN WITHOUT CONTRAST 08/01/2024 REASON FOR EXAM: PANCREATITIS TECHNIQUE: MRCP performed according to protocol without contrast COMPARISON: CT 07/31/2024 FINDINGS: Normal liver. Normal kidneys. Normal spleen. Edema is noted around the pancreas with fluid in the anterior pararenal space compatible with pancreatitis. There is some fluid in the right pericolic gutter. No filling defects are identified within the gallbladder. No pericholecystic fluid is noted. I do not identify a distended pancreatic duct. No filling defects in the common bile duct are identified. Normal caliber of the intrahepatic biliary branches. MRI/MRCP Abdomen without Contrast IMPRESSION: Pancreatitis. Negative MRCP Reading [facility]
--- NOTE | 2024-08-01 10:26 | PN.HOSP_ITS ---
Reason for Visit Reason for Visit: Diagnoses Alcohol abuse, uncomplicated (07/31/24) Acute pancreatitis without necrosis or infection, unspecified (07/31/24) Subjective Subjective Saw patient at bedside this morning. Patient was mildly fatigued appearing and did have mild tenderness to palpation in her upper abdomen but otherwise was laying back comfortably in bed in no acute distress. States she felt much improved this morning compared to yesterday. She had tolerated apple juice this morning without issue. Still did not have much of an appetite. Denied any alcohol withdrawal symptoms. No other new concerns today. Objective Data Objective Data Vital Signs: Vital Signs Temp Pulse Resp BP Pulse Ox O2 Del Method 98.5 F 86 16 146/102 H 100 Room Air 08/01/24 08:15 08/01/24 08:15 08/01/24 08:15 08/01/24 08:15 08/01/24 08:15 08/01/24 08:15 Oxygen Delivery Method Room Air Weight: 73.9 kg Body Mass Index (BMI) 24.7 Intake & Output: Intake and Output for Last 24 Hours 07/30/24 07/31/24 08/01/24 23:59 23:59 23:59 Intake Total 1145 / 1145 1873.33 / 1873.33 Balance 1145 / 1145 1873.33 / 1873.33 Lab / Micro Data 08/01/24 05:17 08/01/24 05:17 Labs: Laboratory Results - last 24 hr 07/31/24 13:24: WBC 13.3 H, RBC 4.35, Hgb 13.8, Hct 41.9, MCV 96.3, MCH 31.7, MCHC 32.9, RDW Std Deviation 58.4 H, RDW Coeff of Ivy 16.4 H, Plt Count 387, MPV 9.9, Immature Gran % (Auto) 0.300, Neut % (Auto) 88.4 H, Lymph % (Auto) 4.5 L, [place] % (Auto) 3.7, Eos % (Auto) 2.3, Baso % (Auto) 0.8, Absolute Neuts (auto) 11.7 H, Absolute Lymphs (auto) 0.60 L, Nucleated RBC % 0, Sodium 139, Potassium 3.9, Chloride 101, Carbon Dioxide 22.1, Anion Gap 16 H, BUN 5, Creatinine 0.57 L , Estim Creat Clear Calc 152.20, Est GFR (MDRD) Non-Af 129, BUN/Creatinine Ratio 8.5 L, Glucose 130 H, Calcium 9.5, Total Bilirubin 0.31, AST 44 H, ALT 23, Alkaline Phosphatase 89, Total Protein 7.2, Albumin 4.1, Globulin 3.1, Albumin/Globulin Ratio 1.3, Lipase 1063 H 07/31/24 14:25: Urine Color Yellow, Urine Clarity Sl. Cloudy, Urine pH 8.0, Ur Specific [place] 1.015, Urine Protein 30 H, Urine Glucose (UA) Normal, Urine Ketones 50 H, Urine Occult Blood Negative, Urine Nitrite Negative, Urine Bilirubin Negative, Urine Urobilinogen Normal, Ur Leukocyte Esterase 25 H, Urine RBC 0 SEEN, Urine WBC 0-5 SEEN, Ur Squamous Epith Cells 0-5 SEEN, Urine Bacteria 1+, Urine Mucus 1+, Urine Test Negative 08/01/24 05:17: WBC 10.4, RBC 3.65 L, Hgb 11.8 L, Hct 35.4 L, MCV 97.0, MCH 32.3 H, MCHC 33.3, RDW Std Deviation 60.6 H, RDW Coeff of Ivy 16.8 H, Plt Count 298, MPV 10.1, Immature Gran % (Auto) 0.600, Neut % (Auto) 81.0 H, Lymph % (Auto) 9.8 L, [place] % (Auto) 8.0, Eos % (Auto) 0.3, Baso % (Auto) 0.3, Absolute Neuts (auto) 8.5 H, Absolute Lymphs (auto) 1.02, Nucleated RBC % 0, Sodium 138, Potassium 3.1 L, Chloride 105, Carbon Dioxide 21.7, Anion Gap 12, BUN 6, Creatinine 0.51 L, Estim Creat Clear Calc 170.10, Est GFR (MDRD) Non-Af 133, BUN/Creatinine Ratio 12.1, Glucose 103 H, Calcium 7.5 L, Phosphorus 2.9, Magnesium 1.3 L, Iron 117, TIBC 321, Iron Saturation 36.0, Unsaturated IBC 204 L, Ferritin 54, Total Bilirubin 0.56, AST 24, ALT 15, Alkaline Phosphatase 80, Total Protein 5.9, Albumin 3.5, Globulin 2.3, Albumin/Globulin Ratio 1.5, Triglycerides 52, Vitamin B12 324 Radiography Diagnostic Testing: Radiology Impression Abdomen/Pelvis CT 07/31/24 16:00 IMPRESSION: 1. Findings compatible with acute interstitial edematous pancreatitis (uncomplicated pancreatitis). 2. Diffuse hepatic steatosis. Reading Location: [id number] Physical Exam Const alert, oriented x3, no apparent distress and average body habitus Constitutional Narrative: Young female, mildly fatigued appearing but otherwise laying back comfortably in bed, conversing normally and in no acute distress. General Appearance: cooperative and comfortable HEENT normocephalic, head/scalp atraumatic, hearing grossly normal bilaterally, nasal mucous membranes and turbinates normal and moist oral mucous membranes Eyes PERRL, EOMs intact bilaterally and conjunctivae normal Neck full ROM Chest inspection of chest normal Resp normal respiratory effort, normal air movement, no use of accessory muscles and clear to auscultation bilaterally Cardio regular rate, regular rhythm, no murmurs and peripheral pulses 2+ throughout GI GI Narrative: Mild tenderness to palpation in epigastric region but abdomen otherwise soft and nondistended. Back/Spine normal ROM Extremity normal to inspection, full ROM and no pedal edema Skin no rashes or lesions noted Psych mental status grossly normal Assessment & Plan Assessment/Plan (1) Acute alcoholic pancreatitis: (2) Alcohol abuse: PLAN: Plan Patient is a 24-year-old female who presented to [facility] ED on 07/31/2024 with abdominal pain. 1. Acute pancreatitis ? Met all 3 criteria with abdominal pain, elevated lipase and fat stranding surrounding the pancreatic head and body on CT imaging. Most likely secondary to heavy alcohol use. CT abdomen pelvis with no gallbladder or liver abnormalities. MRCP completed with read pending to further evaluate right upper quadrant. Triglycerides normal. Symptoms improving, will continue clear liquid diet for today but plan to escalate to regular diet as tolerated tomorrow in preparation for possible discharge home. Pain control with oxycodone, morphine and Toradol as needed. 2. Alcohol abuse ? Last drink on 07/30. Typically drinks liquor and will drink up to 1/5 in a day. Reports going stretches of days to weeks without drinking with no withdrawal symptoms. CIWA scores of 0 since admission. Continue folate and thiamine. Continue CIWA protocol for now. 3. Asthma ? Stable, not in acute exacerbation. Continue home inhalers. 4. Hypokalemia and hypomagnesemia ? Potassium 3.1, magnesium 1.3 on hospital day 2. Presume secondary to poor oral intake in setting of alcohol use. Replete as needed. DVT prophylaxis: Lovenox CODE STATUS: Full code, verified Expected disposition: Home, 1 to 2 days Total clinical time spent by myself addressing the patient's medical issues, reviewing all the data, and collaborating with patient's care team: 35 minutes. Charges/Coding Visit Charges Inpatient E&M: 05945 Subs Hosp L2
[2024-08-01] MEDS: Magnesium Sulfate 4gm/100mL 4 GM/100 ML IV.SOLN. IV (11:05)
[2024-08-01 11:32] VITALS: PULSE 80; RESP 16
[2024-08-01] MEDS: Albuterol 2.5 MG/3 ML VIAL.NEB. INHALATION (11:32)
[2024-08-01] MEDS: Acetaminophen 325 MG Tablet 650 MG PO (13:40)
[2024-08-01 14:19] VITALS: BP 120/82; PULSE 83; RESP 16; TEMP 36.5; O2SAT 100
[2024-08-01] MEDS: oxyCODONE 5 MG Tablet PO (19:56)
[2024-08-01 20:10] VITALS: BP 106/51; PULSE 86; RESP 16; TEMP 36.9; O2SAT 96
[2024-08-01 22:48] VITALS: BP 128/87; PULSE 86; RESP 16; TEMP 36.9; O2SAT 96
[2024-08-02] MEDS: Albuterol 2.5 MG/3 ML VIAL.NEB. INHALATION (01:11)
[2024-08-02 01:13] VITALS: PULSE 82; RESP 16
[2024-08-02 02:00] VITALS: BP 120/81; PULSE 81; RESP 16; TEMP 36.9; O2SAT 96; O2SAT 99
[2024-08-02 02:48] VITALS: BP 120/81; PULSE 81; RESP 16; TEMP 36.7; O2SAT 99
[2024-08-02] MEDS: oxyCODONE 5 MG Tablet PO ×2 (02:53→11:43)
[2024-08-02] MEDS: Gabapentin 300 MG Capsule PO (02:53)
[2024-08-02 06:55] LABS: Anion Gap 11 (5-15); BUN 3 mg/dL (4-19); BUN/Creat Ratio 5.3 RATIO (10-20); Calcium,Total 7.3 mg/dL (7.6-11.0); Carbon Dioxide 16.7 mmol/L (21.0-32.0); Chloride 102 mmol/L (98-108); Creatinine, Serum 0.55 mg/dL (0.70-1.20); EST Glomerular Filtration Rate 130 (>60); Estimated Creatinine Clearance 157.73 ml/min (50-250); Glucose 95 mg/dL (70-99); Potassium 3.4 mmol/L (3.3-5.1); Sodium Level 130 mmol/L (133-145)
[2024-08-02 07:15] LABS: Hematocrit 36.2 % (37-47); Hemoglobin 11.8 g/dL (12.0-15.0); Mean Corp Hgb Conc 32.6 g/dL (32-36); Mean Corpuscular Volume 98.1 fL (81-99); Mean Platelet Vol. 10.2 fl (6.2-12.0); Platelet Count 237 K/mm3 (150-450); RBC Distribution Width CV 16.6 % (11.6-14.6); RBC Distribution Width SD 60.2 fl (35.1-43.9); Red Blood Count 3.69 M/mm3 (4.2-5.4); White Blood Count 7.3 K/mm3 (4.4-11.0)
[2024-08-02] MEDS: 0.9% Normal Saline (1000mL) 1,000 ML 500 ML IV (07:41)
[2024-08-02 08:28] VITALS: BP 119/78; PULSE 82; RESP 18; TEMP 36.7; O2SAT 96
[2024-08-02] MEDS: Folic Acid 1 MG Tablet PO (08:37)
[2024-08-02] MEDS: Thiamine Hydrochloride 100 MG Tablet PO (08:37)
[2024-08-02] MEDS: Enoxaparin 40 MG/0.4 ML Syringe SC (08:37)
--- NOTE | 2024-08-02 10:54 | CASEMGMT ---
KIERAN ANTONIO Assessment: Face to Face with pt for initial transition planning/care coordination assessment. KIERAN ANTONIO introduced self and role at [facility], pt voices understanding and consents to assessment. Pt is A&O x4 and answers all questions appropriately at this time. Pt sitting up in bed in no distress. Care providers, pharmacy, and demographics verified/updated. Strata: 2 Admitting Dx: Basilio PCP: Does not have a PCP, just moved here in October. PCP list of local providers provided to Pt. Specialists: Denies Preferred [facility]acy: [facility] Insurance: Basilio Prescription Benefit: yes LNOK: Significant Other, Huy Living Arrangements: Pt lives with significant other in the basement of Sig. Other's parents. They have a couple steps to enter into home and several stairs to navigate to the basement. Pt reports able to navigate steps without any issues. ADLs: Pt reports I at baseline with ADLs and IADLs. Transportation: Pt significant other provides transportation. DME: Pt denies HHC/SNF: Denies Hx of. Pt states no concerns with going home at time of dc. Pt states no further concerns/needs. KIERAN ANTONIO discussed alcohol/marijuana use. Pt denies wanting any cessation information. CM to follow. Advised pt to ask CM if any further question/concerns/needs arise, voices understanding. Pt Goal: Home Plan: Home, follow for safe DC. Lewis ALCARAZ CM
[2024-08-02 11:36] VITALS: BP 120/79; PULSE 84; RESP 18; TEMP 36.3; O2SAT 97
[2024-08-02] MEDS: Acetaminophen 325 MG Tablet 650 MG PO (11:43)
--- NOTE | 2024-08-02 12:56 | PN.HOSP_ITS ---
Reason for Visit Reason for Visit: Diagnoses Alcohol abuse, uncomplicated (07/31/24) Alcohol induced acute pancreatitis without necrosis or infection (07/31/24) Acute pancreatitis without necrosis or infection, unspecified (07/31/24) Subjective Subjective Saw patient at bedside this morning. Patient was sitting up comfortably in bed, conversing normally and in no acute distress. Still has mild abdominal pain but improved from admission. Tolerated liquid diet well yesterday and this morning and feels very hungry and is looking forward to eating a regular diet for lunch. No other new concerns morning. Objective Data Objective Data Vital Signs: Vital Signs Temp Pulse Resp BP Pulse Ox O2 Del Method FiO2 97.3 F L 84 18 120/79 97 Room Air 3 08/02/24 11:36 08/02/24 11:36 08/02/24 11:36 08/02/24 11:36 08/02/24 11:36 08/02/24 11:36 08/01/24 20:10 Oxygen Delivery Method Room Air Weight: 73.9 kg Body Mass Index (BMI) 24.7 Intake & Output: Intake and Output for Last 24 Hours 07/31/24 08/01/24 08/02/24 23:59 23:59 23:59 Intake Total 1145 / 1145 1000 / 1000 Balance 1145 / 1145 1000 / 1000 Lab / Micro Data 08/02/24 06:59 08/02/24 05:37 Labs: Laboratory Results - last 24 hr 08/02/24 05:37: Sodium 130 L, Potassium 3.4, Chloride 102, Carbon Dioxide 16.7 L , Anion Gap 11, BUN 3 L, Creatinine 0.55 L, Estim Creat Clear Calc 157.73, Est GFR (MDRD) Non-Af 130, BUN/Creatinine Ratio 5.3 L, Glucose 95, Calcium 7.3 L 08/02/24 06:59: WBC 7.3, RBC 3.69 L, Hgb 11.8 L, Hct 36.2 L, MCV 98.1, MCH 32.0, MCHC 32.6, RDW Std Deviation 60.2 H, RDW Coeff of Ivy 16.6 H, Plt Count 237, MPV 10.2 Radiography Diagnostic Testing: Radiology Impression MRCP 08/01/24 09:00 IMPRESSION: Pancreatitis. Negative MRCP Reading Location: [facility] Physical Exam Const alert, oriented x3, no apparent distress and average body habitus Constitutional Narrative: Young female, energy improved from admission, laying back comfortably in bed, conversing normally and in no acute distress. General Appearance: cooperative and comfortable HEENT normocephalic, head/scalp atraumatic, hearing grossly normal bilaterally, nasal mucous membranes and turbinates normal and moist oral mucous membranes Eyes PERRL, EOMs intact bilaterally and conjunctivae normal Neck full ROM Chest inspection of chest normal Resp normal respiratory effort, normal air movement, no use of accessory muscles and clear to auscultation bilaterally Cardio regular rate, regular rhythm, no murmurs and peripheral pulses 2+ throughout GI GI Narrative: Mild tenderness to palpation in epigastric region but abdomen otherwise soft and nondistended. Stable. Back/Spine normal ROM Extremity normal to inspection, full ROM and no pedal edema Skin no rashes or lesions noted Psych mental status grossly normal Assessment & Plan Assessment/Plan (1) Acute alcoholic pancreatitis: (2) Alcohol abuse: PLAN: Plan Patient is a 24-year-old female who presented to [facility] ED on 07/31/2024 with abdominal pain. 1. Acute pancreatitis ? Met all 3 criteria with abdominal pain, elevated lipase and fat stranding surrounding the pancreatic head and body on CT imaging. Most likely secondary to heavy alcohol use. CT abdomen pelvis with no gallbladder or liver abnormalities. MRCP confirmed no right upper quadrant issues. Triglycerides normal. Symptoms much improved from admission. Tolerated clear liquid diet well on 08/01. Escalated to regular diet today and if patient tolerates this well, will plan for discharge home this afternoon. Continue pain control with oxycodone and IV Toradol as needed for now. 2. Alcohol abuse ? Last drink on 07/30. Typically drinks liquor and will drink up to 1/5 in a day. Reports going stretches of days to weeks without drinking with no withdrawal symptoms. CIWA scores of 0 since admission. Continue folate and thiamine. Continue CIWA protocol for now. Strongly recommended cessation on discharge. 3. Asthma ? Stable, not in acute exacerbation. Continue home inhalers. 4. Hypokalemia and hypomagnesemia ? Potassium 3.1, magnesium 1.3 on hospital day 2. Presume secondary to poor oral intake in setting of alcohol use. Replete as needed. DVT prophylaxis: Lovenox CODE STATUS: Full code, verified Expected disposition: Home, 1 to 2 days Total clinical time spent by myself addressing the patient's medical issues, reviewing all the data, and collaborating with patient's care team: 35 minutes. Charges/Coding Visit Charges Inpatient E&M: 03288 Subs Hosp L2
--- NOTE | 2024-08-02 15:11 | DS.PCM_ITS ---
Providers Date of Admission: 07/31/24 Date of Discharge: 08/02/24 Primary Care Physician: No Primary Care Phys Reason For Visit: PANCREATITIS Diagnosis Discharge Diagnosis (1) Acute alcoholic pancreatitis: Status: Acute Code(s): K85.20 - Alcohol induced acute pancreatitis without necrosis or infection (2) Alcohol abuse: Status: Acute Code(s): F10.10 - Alcohol abuse, uncomplicated Medications at Discharge Home Medications fexofenadine 60 mg tablet (Dottie Allergy) 60 mg PO BID PRN ALLERGIES 10/30/23 albuterol sulfate 0.63 mg/3 mL solution for nebulization 0.63 mg inhalation Q8H PRN shortness of breath or wheezing 07/31/24 albuterol sulfate 90 mcg/actuation aerosol inhaler (Ventolin HFA) 2 puff inhalation Q4H PRN Wheezing 07/31/24 fluticasone propionate 50 mcg/actuation nasal spray,suspension (24 Hour Allergy Relief) 1 spray intranasal DAILY PRN nasal congestion 07/31/24 fluticasone 250 mcg-salmeterol 50 mcg/dose blistr powdr for inhalation (Wixela Inhub) 1 inh inhalation BID asthma 08/01/24 Hospital Course Operations None Procedures - (CT abdomen pelvis with IV contrast, MRCP) Summary of Care Provided Minutes Spent on Discharge: 35 Hospital Course: Patient is a 24-year-old female who presented to [facility] ED on 07/31/2024 with abdominal pain. Hospital course as noted below. Patient discharged home in stable condition on 08/02. 1. Acute pancreatitis ? Met all 3 criteria with abdominal pain, elevated lipase and fat stranding surrounding the pancreatic head and body on CT imaging. Most likely secondary to heavy alcohol use. CT abdomen pelvis with no gallbladder or liver abnormalities. MRCP confirmed no right upper quadrant issues. Triglycerides normal. Symptoms much improved from admission. Tolerated clear liquid diet well on 08/01. Escalated to regular diet on 08/02 and tolerated well so was stable for discharge home. Pain well-controlled on discharge off pain medication, no need for short course of pain medications on discharge. 2. Alcohol abuse ? Last drink on 07/30. Typically drinks liquor and will drink up to 1/5 in a day. Reports going stretches of days to weeks without drinking with no withdrawal symptoms. CIWA scores of 0 since admission. Continue folate and thiamine. Continue CIWA protocol for now. Strongly recommended cessation on discharge. 3. Asthma ? Stable, not in acute exacerbation. Continue home inhalers. 4. Hypokalemia and hypomagnesemia ? Potassium 3.1, magnesium 1.3 on hospital day 2. Presume secondary to poor oral intake in setting of alcohol use. Repleted as needed. Total clinical time spent by myself addressing the patient's medical issues, reviewing all the data, and collaborating with patient's care team: 35 minutes. Physical Exam Const alert, oriented x3, no apparent distress and average body habitus Constitutional Narrative: Young female, energy improved from admission, laying back comfortably in bed, conversing normally and in no acute distress. General Appearance: cooperative and comfortable HEENT normocephalic, head/scalp atraumatic, hearing grossly normal bilaterally, nasal mucous membranes and turbinates normal and moist oral mucous membranes Eyes PERRL, EOMs intact bilaterally and conjunctivae normal Neck full ROM Chest inspection of chest normal Resp normal respiratory effort, normal air movement, no use of accessory muscles and clear to auscultation bilaterally Cardio regular rate, regular rhythm, no murmurs and peripheral pulses 2+ throughout GI GI Narrative: Mild tenderness to palpation in epigastric region but abdomen otherwise soft and nondistended. Stable. Back/Spine normal ROM Extremity normal to inspection, full ROM and no pedal edema Skin no rashes or lesions noted Psych mental status grossly normal Weight / BMI Weight Weight: 73.9 kg Body Mass Index (BMI) 24.7 ABG / Lab / Microbiology Data 08/02/24 06:59 08/02/24 05:37 Laboratory: Laboratory Results - last 24 hr 08/02/24 05:37: Sodium 130 L, Potassium 3.4, Chloride 102, Carbon Dioxide 16.7 L , Anion Gap 11, BUN 3 L, Creatinine 0.55 L, Estim Creat Clear Calc 157.73, Est GFR (MDRD) Non-Af 130, BUN/Creatinine Ratio 5.3 L, Glucose 95, Calcium 7.3 L 08/02/24 06:59: WBC 7.3, RBC 3.69 L, Hgb 11.8 L, Hct 36.2 L, MCV 98.1, MCH 32.0, MCHC 32.6, RDW Std Deviation 60.2 H, RDW Coeff of Ivy 16.6 H, Plt Count 237, MPV 10.2 Radiography Diagnostic Testing: Radiology Impression MRCP 08/01/24 09:00 IMPRESSION: Pancreatitis. Negative MRCP [facility] Instructions DC O2, CPAP, BIPAP Needs Home O2 Discharge instructions: No Meaningful Use Info Meaningful Use Meaningful Use Diagnoses (Choose all that apply): None applicable Ischemic Stroke Statin Dosing Therapy Reference: STATIN DOSE THERAPY REFERENCE: * Patients > 75 years receive moderate or high dose statin therapy. * Patients 75 years or YOUNGER should receive HIGH intensity statin dose unless contraindicated. You will be required to document reason for non-treatment if statin daily dose does not meet guidelines. HIGH DOSE STATIN THERAPY DAILY Atorvastatin > than or = to 40 mg Rosuvastatin > than or = to 20 mg Amlodipine + Atorvastatin > than or = to 2.5/40 mg Ezetimibe + Simvastatin 10/80 mg Simvastatin 80mg Discharge Plan Admission Admit Date/Time: 07/31/24 17:57 Primary Reason for Your Visit: abdominal pain Attending Provider: Cl Jamison Primary Care Provider: Care Physician,No Primary Consulting Providers: Maciej Beach Discharge Orders/Prescriptions Prescriptions: Continued fexofenadine [Dottie Allergy] 60 mg tablet 60 mg PO BID PRN (Reason: ALLERGIES) albuterol sulfate 0.63 mg/3 mL solution for nebulization 0.63 mg inhalation Q8H PRN (Reason: shortness of breath or wheezing) fluticasone propionate [24 Hour Allergy Relief] 50 mcg/actuation spray,suspension 1 spray intranasal DAILY PRN (Reason: nasal congestion) Rx Instructions: administer into each nostril albuterol sulfate [Ventolin HFA] 90 mcg/actuation HFA aerosol inhaler 2 puff inhalation Q4H PRN (Reason: Wheezing) Rx Instructions: with spacer fluticasone propion-salmeterol [Wixela Inhub] 250-50 mcg/dose blister with device 1 inh inhalation BID Referrals / Follow Up: Care Physician,No Primary [Primary Care Provider] - Disposition Disposition (needs filled in before D/C Order can be placed): Home, Self Care Charges/Coding Visit Charges Inpatient E&M: 47142 Disch Hosp >30min
--- NOTE | 2024-08-02 15:11 | DCINST_ITS ---
Discharge Instructions Diet Discharge Diet: No restrictions DC O2, CPAP, BIPAP needs Home O2 Discharge instructions: No Dressing / Incision Discharge Activity: No Restrictions Follow Up Care Test Results: Test results from this visit will be discussed in further detail at your follow- up appointment, if applicable. Discharge Plan Admission Admit Date/Time: 07/31/24 17:57 Primary Reason for Your Visit: abdominal pain Attending Provider: Cl Jamison Primary Care Provider: Care Physician,No Primary Consulting Providers: Maciej Beach Discharge Orders/Prescriptions Prescriptions: Continued fexofenadine [Dottie Allergy] 60 mg tablet 60 mg PO BID PRN (Reason: ALLERGIES) albuterol sulfate 0.63 mg/3 mL solution for nebulization 0.63 mg inhalation Q8H PRN (Reason: shortness of breath or wheezing) fluticasone propionate [24 Hour Allergy Relief] 50 mcg/actuation spray,suspension 1 spray intranasal DAILY PRN (Reason: nasal congestion) Rx Instructions: administer into each nostril albuterol sulfate [Ventolin HFA] 90 mcg/actuation HFA aerosol inhaler 2 puff inhalation Q4H PRN (Reason: Wheezing) Rx Instructions: with spacer fluticasone propion-salmeterol [Wixela Inhub] 250-50 mcg/dose blister with device 1 inh inhalation BID Referrals / Follow Up: Care Physician,No Primary [Primary Care Provider] - Disposition Disposition (needs filled in before D/C Order can be placed): Home, Self Care
--- NOTE | 2024-08-02 15:21 | PHA.DC.MR.R ---
Pharmacy [place] Med Reconciliation Pharmacy Service has performed discharge medication reconciliation for this patient. The patient's discharge medication list was reviewed for discrepancies and discrepancies were resolved. Medications at Discharge Home Medications fexofenadine 60 mg tablet (Dottie Allergy) 60 mg PO BID PRN ALLERGIES 10/30/23 albuterol sulfate 0.63 mg/3 mL solution for nebulization 0.63 mg inhalation Q8H PRN shortness of breath or wheezing 07/31/24 albuterol sulfate 90 mcg/actuation aerosol inhaler (Ventolin HFA) 2 puff inhalation Q4H PRN Wheezing 07/31/24 fluticasone propionate 50 mcg/actuation nasal spray,suspension (24 Hour Allergy Relief) 1 spray intranasal DAILY PRN nasal congestion 07/31/24 fluticasone 250 mcg-salmeterol 50 mcg/dose blistr powdr for inhalation (Wixela Inhub) 1 inh inhalation BID asthma 08/01/24
[2024-08-02 15:35] VITALS: BP 108/73; PULSE 84; RESP 16; TEMP 36.6; O2SAT 97
--- NOTE | 2024-08-02 15:45 | DCINST_ITS ---
Discharge Instructions Diet Discharge Diet: No restrictions DC O2, CPAP, BIPAP needs Home O2 Discharge instructions: No Dressing / Incision Return to work on:: 08/04/24 Follow Up Care Test Results: Test results from this visit will be discussed in further detail at your follow- up appointment, if applicable. Discharge Plan Admission Admit Date/Time: 07/31/24 17:57 Primary Reason for Your Visit: abdominal pain Attending Provider: Cl Jamison Primary Care Provider: Care Physician,No Primary Consulting Providers: Maciej Beach Instructions Forms: Work Excuse Discharge Orders/Prescriptions Prescriptions: Continued fexofenadine [Dottie Allergy] 60 mg tablet 60 mg PO BID PRN (Reason: ALLERGIES) albuterol sulfate 0.63 mg/3 mL solution for nebulization 0.63 mg inhalation Q8H PRN (Reason: shortness of breath or wheezing) fluticasone propionate [24 Hour Allergy Relief] 50 mcg/actuation spray,suspens ion 1 spray intranasal DAILY PRN (Reason: nasal congestion) Rx Instructions: administer into each nostril albuterol sulfate [Ventolin HFA] 90 mcg/actuation HFA aerosol inhaler 2 puff inhalation Q4H PRN (Reason: Wheezing) Rx Instructions: with spacer fluticasone propion-salmeterol [Wixela Inhub] 250-50 mcg/dose blister with device 1 inh inhalation BID Referrals / Follow Up: Care Physician,No Primary [Primary Care Provider] - Disposition Disposition (needs filled in before D/C Order can be placed): Home, Self Care
[2024-08-03 15:08] LABS: Folate, RBC (Hct) Test 36.6 % (34.0-46.6); Folates, RBC Test 869 ng/mL (>498)
== END 2024-08-02 16:24 | disposition home or self-care (01) | DRG 440 ==
LOC: ED 15:58 → MS3 18:06
PROVIDERS: Emergency Provider Emergency Medicine; Visit Provider Hospitalist
DX: K85.20 Alcohol induced acute pancreatitis without necrosis or infection (principal); E83.42 Hypomagnesemia; F10.10 Alcohol abuse, uncomplicated; J45.909 Unspecified asthma, uncomplicated; E87.6 Hypokalemia; Z79.51 Long term (current) use of inhaled steroids
CPT/HCPCS: 36415; 74177; 74181; 80048; 80053; 81001; 81025; 82607; 82728; 82747; 83540; 83550; 83690; 83735; 84100; 84478; 85014; 85025; 85027; 94640; 99252; 99284; Q9967; A4216; G0463; J2405

== ENCOUNTER 2024-09-16 03:12 | Emergency (ER) | payer BC, SELFPAY ==
[2024-09-16 03:13] VITALS: BP 133/88; PULSE 125; RESP 26; TEMP 36.5; O2SAT 93; BMI 23.8
[2024-09-16 03:15] VITALS: O2SAT 92
[2024-09-16 03:25] VITALS: PULSE 106; RESP 16
[2024-09-16] MEDS: Albuterol 2.5 MG/3 ML VIAL.NEB. INHALATION (03:25)
--- NOTE | 2024-09-16 03:49 | EX.ED.DYSGE1 ---
HPI History of Present Illness Chief Complaint: Asthma Informant: patient Narrative Narrative: Patient is a 24-year-old female with past medical history of asthma. She states that symptoms have been present for 1 to 2 weeks but in the last 24 hours she feels that they have greatly increased. She states that she has a maintenance inhaler and rescue inhaler but has been out of the rescue inhaler. She denies any known sick contacts or known allergens. However due to her worsening shortness of breath sensation she presents for evaluation. [facility] Medical History (Updated 09/20/24 @ 22:[address] Robert Yanes, DO) Alcohol abuse Tobacco use Acute eczema Anxiety Allergies Seizure Asthma Home Medications ?Medication ?Instructions ?Recorded ?Last Taken ?Type fexofenadine 60 mg tablet (Dottie 60 mg PO BID PRN ALLERGIES 10/30/23 07/29/24 History Allergy) albuterol sulfate 0.63 mg/3 mL 0.63 mg inhalation Q8H PRN 07/31/24 Unknown History solution for nebulization shortness of breath or wheezing albuterol sulfate 90 mcg/actuation 2 puff inhalation Q4H PRN Wheezing 07/31/24 Unknown History aerosol inhaler (Ventolin HFA) fluticasone propionate 50 1 spray intranasal DAILY PRN nasal 07/31/24 Unknown History mcg/actuation nasal congestion spray,suspension (24 Hour Allergy Relief) fluticasone 250 mcg-salmeterol 50 1 inh inhalation BID asthma 08/01/24 Unknown History mcg/dose blistr powdr for inhalation (Wixela Inhub) albuterol sulfate 90 mcg/actuation 1 - 2 puff inhalation Q4H PRN PRN 09/16/24 Unknown Rx aerosol inhaler (Ventolin HFA) Wheezing #1 device ipratropium 0.5 mg-albuterol 3 mg 3 ml inhalation Q6H PRN shortness 09/16/24 Unknown Rx (2.5 mg base)/3 mL nebulization of breath or wheezing #180 mL soln prednisone 10 mg tablet 10 mg PO UD #33 tabs 09/16/24 Unknown Rx Allergy/AdvReac Type Severity Reaction Status Date / Time No Known Allergies Allergy Verified 09/16/24 03:13 Family History no significant family his Social History Smoking Status: Never smoker substance use type: marijuana ROS ROS ED Constitutional Constitutional ED: Denies chills or fever(s) Eyes Eyes: Denies change in vision ENT ENT ED: Reports rhinorrhea and sore throat Cardiovascular Cardiovascular: Reports racing heartbeat; Denies chest pain or palpitations Respiratory/Chest Respiratory/Chest: Reports cough and dyspnea Gastrointestinal Gastrointestinal: Denies abdominal pain, diarrhea, nausea or vomiting Genitourinary Genitourinary ED: Denies dysuria Musculoskeletal Musculoskeletal: Denies myalgias Integumentary Denies rash Neurologic Neurologic: Denies headache(s) Psychiatric Psychiatric: Reports anxiety Hematologic/Lymphatic Hematologic/Lymphatic: Denies easy bleeding or easy bruising Allergic/Immunologic Allergic/Immunologic ED: Denies mouth swelling or tongue swelling EXAM Physical Exam Const Vital Signs: 09/16/24 03:13 09/16/24 03:25 Temperature 97.7 F L Temperature Source Axillary Pulse Rate 125 H 106 H Respiratory Rate 26 H 16 Respiratory Pattern Normal Blood Pressure 133/88 H Blood Pressure Mean 103 Pulse Ox 93 Oxygen Delivery Method Room Air Positive well nourished and well developed General Appearance ED: well developed; Negative for pallor HEENT HEENT Narrative: Nasal mucosa is hyperemic and boggy There is cobblestoning of the posterior pharynx consistent with sinus strain No tongue or lip swelling no oral lesions no airway edema or compromise; no secondary findings in the posterior pharynx to suggest infection Eyes PERRL and EOMs intact bilaterally General Eye ED: Negative for scleral icterus Neck supple and no JVD Neck Narrative: No subcutaneous emphysema noted Resp Resp Narrative: Patient is in mild respiratory distress with tachypnea and accessory muscle use Breath sounds are diminished throughout with diffuse inspiratory and expiratory wheezing Cardio regular rhythm Rate: tachycardic and other Other Details: Tachycardic rate with regular rhythm Radial and carotid pulses are equal and symmetric No murmurs rubs or gallops Extremity normal to inspection Extremity Narrative: No asymmetric edema no pitting edema negative Homans' sign bilaterally Neuro oriented x3, CN's II-XII intact bilaterally and no sensory deficits noted Sensorium / Orientation: alert Motor Exam: strength 5/5 throughout Psych Mood & Affect: anxious Skin no rashes or lesions noted and no wounds General Skin Exam: Negative for jaundice or pallor MDM MDM MDM Narrative Medical decision making narrative: Patient arrived to the ER in mild respiratory distress with tachypnea and accessory muscle use. She is satting in the low 90s on room air but does have diffuse inspiratory and expiratory wheezing consistent with asthma exacerbation. She denies any known sick contacts or known asthma triggers. She is afebrile and symptoms are most consistent and symptoms are most consistent with acute asthma exacerbation and therefore I feel no need for laboratory or imaging studies at this time. I have low concern for secondary pneumonia or pneumothorax. Patient was given breathing treatments and steroids. On reevaluation she has had improvement of her vitals as well as work of breathing and her breath sounds have improved as well. Therefore as her symptoms are improving with provided treatment she is not requiring supplemental oxygen or noninvasive support such as high flow or BiPAP or nasal cannula oxygen there is no need for further workup or admission and she is otherwise safe for discharge. History & Record Review Discussion w/independent historian: Patient Discharge Plan Triage Chief Complaint: Asthma ED Provider: Robert Yanes Dx/Rx/DC Orders Clinical Impression: Asthma exacerbation, Anxiety Instructions: Asthma Triggers Irritants, Acute Severe Asthma Prescriptions: New ipratropium-albuterol 0.5 mg-3 mg(2.5 mg base)/3 mL solution for nebulization 3 ml inhalation Q6H PRN (Reason: shortness of breath or wheezing) Qty: 180 1RF albuterol sulfate [Ventolin HFA] 90 mcg/actuation HFA aerosol inhaler 1 - 2 puff inhalation Q4H PRN PRN (Reason: Wheezing) Qty: 1 2RF prednisone 10 mg tablet 10 mg PO UD Qty: 33 0RF Rx Instructions: Take 4 tablets daily for 3 days, then 3 daily for 3 days, then 2 daily for 3 days, then 1 a day for 3 days then 1 QOD for 3 doses. No Action fexofenadine [Dottie Allergy] 60 mg tablet 60 mg PO BID PRN (Reason: ALLERGIES) albuterol sulfate 0.63 mg/3 mL solution for nebulization 0.63 mg inhalation Q8H PRN (Reason: shortness of breath or wheezing) fluticasone propionate [24 Hour Allergy Relief] 50 mcg/actuation spray,suspension 1 spray intranasal DAILY PRN (Reason: nasal congestion) Rx Instructions: administer into each nostril albuterol sulfate [Ventolin HFA] 90 mcg/actuation HFA aerosol inhaler 2 puff inhalation Q4H PRN (Reason: Wheezing) Rx Instructions: with spacer fluticasone propion-salmeterol [Wixela Inhub] 250-50 mcg/dose blister with device 1 inh inhalation BID Primary Care Provider: Care Physician,No Primary Referrals: Care Physician,No Primary [Primary Care Provider] - Activity Restrictions/Additional Instructions: Please use the DuoNebs up to 4 times a day at home to help with shortness of breath/wheeze. Take the steroids as directed as well which will ultimately help reduce your inflammatory process. This will typically take 1-2 to demonstrate improvement. If you have any further concerns or worsening symptoms please return to the ER for repeat evaluation Print Language: Prydeinig Disposition Disposition: Home, Self Care Discharge Date/Time: 09/16/24 03:58
--- OUTSIDE RECORDS SUMMARY | 2024-09-16 03:49 | XMS RPT_ITS | CCD ---
Author Organization [facility] Care Team Providers Care Mechanical Service Technician Name Role Phone Care Physician, No Primary Primary Care Provider Unavailable Dr. Bairon Landrum DO Attending Provider Nba ARIAS, Dr. Waddell Emergency Provider Florencio PRASAD, Dr. Watt Attending Provider Florencio PRASAD, Dr. Watt Emergency Provider Dr. Simone Connolly DO Attending Provider Dr. Simone Connolly DO Emergency Provider Dr. Maciej Nance DO Emergency Provider Baylee ARIAS, Dr. Wing Admit Provider Dr. Maciej Beach DO Attending Provider Dr. Maciej Beach DO Other Provider Dr. Maciej Baech DO Other Provider Dr. Cl Jamison DO Attending Provider Dr. Maciej Beach DO Attending Provider Dr. Cl Jamison DO Other Provider [phone] Care Physician, No Primary Primary Care Unava ilable Bairon Landrum Attending Unavailable Shukri Matias Attending Unavailable Care Physician, No Primary Primary Care Unava ilable Simone Connolly Attending Unavailable Care Physician, No Primary Primary Care Unava ilable Care Physician, No Primary Primary Care Unava ilable Bairon Landrum Attending Unavailable Maciej Beach Consulting Unavailable Maciej Beach Attending Unavailable Maciej Beach Admitting Unavailable Care Physician, No Primary Primary Care Unava ilable Mosteller, Cl Attending Unavailable Cl Jamison Consulting Unavailable Maida Buckley Attending Unavailable Care Physician, No Primary Primary Care Unava ilable Cl Jamison Attending Unavailable Maciej Beach Consulting Unavailable Maciej Beach Admitting Unavailable Care Physician, No Primary Primary Care Unava ilable Medications Current Medications Medication Drug Class(es) Dates Sig (Normalized) Sig (Original) albuterol 0.21 mg/ml inhalation solution (10 sources) beta2-Adrenergic Agonist Start: 07-31-2024 take 0.63 mg by inhalation every eight hours as needed for wheezing Albuterol Sulfate 0.63 mg/3 mL solution for nebulization Active 0.63 mg INHALATION Q8H as needed for shortness of breath or wheezing July 31, 2024 12:00am Start: 10-30-2023 End: 07-31-2024 Albuterol Sulfate (Ventolin Hfa) 90 mcg/actuation HFA aerosol inhaler Discontinued 2 NMA INHALATION EVERY 4 HOURS NEEDED as needed for Wheezing April 14, 2024 1:00am July 31, 2024 4:01pm with spacer fexofenadine hydrochloride 60 mg oral tablet (2 sources) Histamine-1 Receptor Antagonist Start: 10-30-2023 take 1 tablet by mouth twice daily as needed Fexofenadine (Dottie Allergy) 60 mg tablet Active 60 mg PO TWICE A DAY as needed for ALLERGIES October 30, 2023 12:00am fluticasone propionate 0.05 mg/actuat metered dose nasal spray (2 sources) Corticosteroid Start: 07-31-2024 take 50 ug nasal route once daily as needed Fluticasone Propionate (24 Hour Allergy Relief) 50 mcg/actuation spray,suspension Active 1 NMA INTRANASAL DAILY as needed for nasal congestion July 31, 2024 12:00am administer into each nostril Fluticasone Propion-Salmeterol (1 source) Corticosteroid, beta2-Adrenergic Agonist Start: 08-01-2024 Fluticasone Propion-Salmeterol (Wixela Inhub) 250-50 mcg/dose blister with device Active 1 NMA INHALATION TWICE A DAY August 01, 2024 12:00am 30 actuat fluticasone furoate 0.2 mg/actuat / vilanterol 0.025 mg/actuat dry powder inhaler (1 source) Corticosteroid, beta2-Adrenergic Agonist Start: 07-31-2024 Fluticasone Furoate-Vilanterol (Breo Ellipta) 200-25 mcg/dose blister with device Active 2 NMA INHALATION TWICE A DAY July 31, 2024 12:00am Completed/Discontinued Medications Medication Drug Class(es) Dates Sig (Normalized) Sig (Original) levETIRAcetam 250 mg oral tablet (2 sources) Start: 11-25-2023 End: 04-14-2024 take 1 tablet by mouth every twelve hours Levetiracetam (Keppra) 250 mg tablet Discontinued 250 mg PO Q12H November 25, 2023 12:00am April 14, 2024 7:52am predniSONE 20 mg oral tablet (6 sources) Start: 04-14-2024 End: 07-11-2024 take 3 tablets by mouth once daily Prednisone 20 mg tablet Discontinued 60 mg PO DAILY April 14, 2024 1:00am July 11, 2024 6:53pm Start: 11-25-2023 End: 04-14-2024 take 2 tablets by mouth once daily Prednisone 20 mg tablet Discontinued 40 mg PO DAILY November 25, 2023 12:00am April 14, 2024 7:52am Start: 10-30-2023 End: 11-25-2023 take 3 tablets by mouth once daily Prednisone 20 mg tablet Discontinued 60 mg PO DAILY October 30, 2023 12:00am November 25, 2023 7:26pm promethazine hydrochloride 25 mg oral tablet (2 sources) Phenothiazine Start: 07-12-2024 End: 07-31-2024 take 1 tablet by mouth every six hours as needed for nausea and vomiting Promethazine 25 mg tablet Discontinued 25 mg PO EVERY 6 HOURS as needed for nausea and vomiting July 12, 2024 12:00am July 31, 2024 3:57pm Problems Problem Classification Problem Date Documented Da te Episodic/Chronic Abdominal pain (1 source) Unspecified abdominal pain; Translations: [Unspecified abdominal pain] Onset: 07-15-2024 Episodic Alcohol-related disorders (5 sources) Alcohol abuse; Translations: [Alcohol abuse, uncomplicated] Onset: 08-04-2024 07-31-2024 Chronic Asthma (8 sources) Exacerbation of asthma; Translations: [Unspecified asthma with (acute) exacerbation] Onset: 11-20-2023 11-07-2023 Chronic Intestinal infection (3 sources) Viral gastroenteritis; Translations: [Viral intestinal infection, unspecified] Onset: 07-13-2024 07-19-2024 Episodic Nausea and vomiting (4 sources) Nausea and vomiting; Translations: [Nausea with vomiting, unspecified] 07-31-2024 Episodic Other lower respiratory disease (4 sources) Dyspnea; Translations: [Dyspnea, unspecified] 11-07-2023 Episodic Pancreatic disorders (not diabetes) (11 sources) Alcohol-induced acute pancreatitis; Translations: [Alcohol induced acute pancreatitis without necrosis or infection] Onset: 08-02-2024 07-31-2024 Episodic Residual codes; unclassified (2 sources) Patient encounter status; Translations: [Procedure and treatment not carried out due to patient leaving prior to being seen by health care provider] 07-19-2024 Episodic Residual codes; unclassified (4 sources) Tobacco use and exposure - finding; Translations: [Tobacco use] 07-31-2024 Episodic Unclassified (2 sources) for pulmonology evaluation if needed Results Test Name Value Interpretation Reference Range Facility Basic Metabolic Profile (BMP )on 08-08-2024 BUN Normal 4-19 [facility] Comment on above: Result Comment: Mercy elled via OM: MD Ordered Performed By: #### L [id number] #### [facility] [address] [place], [address] BUN/CRE Normal 10-20 [facility] Comment on above: Result Comment: Mercy elled via OM: MD Ordered Performed By: #### L [id number] #### [facility] [address] [place], [address] Calcium Normal 7.6-11.0 [facility] Comment on above: Result Comment: Mercy elled via OM: MD Ordered Performed By: #### L [id number] #### [facility] [address] [place], [address] CL Normal 98-108 [facility] Comment on above: Result Comment: Mercy elled via OM: MD Ordered Performed By: #### L [id number] #### [facility] [address] [place], [address] CO2 Normal 21.0-32.0 [facility] Comment on above: Result Comment: Canc elled via OM: MD Ordered Performed By: #### L 400.7600 #### [facility] [address] [place], [address] CREAT,SERUM Normal 0.70-1.20 [facility] Comment on above: Result Comment: Canc elled via OM: MD Ordered Performed By: #### L [id number] #### [facility] [address] [place], [address] eGFR Normal >60 [facility] Comment on above: Result Comment: Canc elled via OM: MD Ordered Performed By: #### L [id number] #### [facility] [address] [place], [address] GAP Normal 5-15 [facility] Comment on above: Result Comment: Canc elled via OM: MD Ordered Performed By: #### [id number] #### [facility] [address] [place], [address] GLU Normal 70-99 [facility] Comment on above: Result Comment: Canc elled via OM: MD Ordered Performed By: #### L [id number] #### [facility] [address] [place], [address] Potassium Normal 3.3-5.1 [facility] Comment on above: Result Comment: Canc elled via OM: MD Ordered Performed By: #### L 400.7600 #### [facility] [address] [place], [address] Basic Metabolic Profile (BMP) Normal 133-145 [facility] Comment on above: Result Comment: Canc elled via OM: MD Ordered Performed By: #### L [id number] #### [facility] [address] [place], [address] CBC-Complete Blood Cnt No Di ffon 08-08-2024 HCT Normal 37-47 [facility] Comment on above: Result Comment: Canc elled via OM: MD Ordered Performed By: #### L 100.0500 #### [facility] [address] [place], [address] HGB Normal 12.0-15.0 [facility] Comment on above: Result Comment: Canc elled via OM: MD Ordered Performed By: #### L 100.0500 #### [facility] [address] [place], [address] MCH Normal 27.0-32.0 [facility] Comment on above: Result Comment: Canc elled via OM: MD Ordered Performed By: #### L 100.0500 #### [facility] [address] [place], [address] MCHC Normal 32-36 [facility] Comment on above: Result Comment: Canc elled via OM: MD Ordered Performed By: #### L 100.0500 #### [facility] [address] [place], [address] MCV Normal 81-99 [facility] Comment on above: Result Comment: Canc elled via OM: MD Ordered Performed By: #### L 100.0500 #### [facility] [address] [place], [address] PLT Normal 150-450 [facility] Comment on above: Result Comment: Canc elled via OM: MD Ordered Performed By: #### L 100.0500 #### [facility] [address] [place], [address] RBC Normal 4.2-5.4 [facility] Comment on above: Result Comment: Canc elled via OM: MD Ordered Performed By: #### L 100.0500 #### [facility] [address] [place], [address] RDW CV Normal 11.6-14.6 [facility] Comment on above: Result Comment: Canc elled via OM: MD Ordered Performed By: #### L 100.0500 #### [facility] [address] [place], [address] RDW SD Normal 35.1-43.9 [facility] Comment on above: Result Comment: Canc elled via OM: MD Ordered Performed By: #### L 100.0500 #### [facility] [address] [place], [address] WBC Normal 4.4-11.0 [facility] Comment on above: Result Comment: Canc elled via OM: MD Ordered Performed By: #### L 100.0500 #### [facility] [address] [place], [address] Basic Metabolic Profile (BMP )on 08-06-2024 BUN Normal 4-19 [facility] Comment on above: Result Comment: Canc elled via OM: MD Ordered Performed By: #### L 500.2500 #### [facility] [address] [place], [address] BUN/CRE Normal 10-20 [facility] Comment on above: Result Comment: Canc elled via OM: MD Ordered Performed By: #### L 500.2500 #### [facility] [address] [place], [address] Calcium Normal 7.6-11.0 [facility] Comment on above: Result Comment: Canc elled via OM: MD Ordered Performed By: #### L 500.2500 #### [facility] [address] [place], [address] CL Normal 98-108 [facility] Comment on above: Result Comment: Canc elled via OM: MD Ordered Performed By: #### L 500.2500 #### [facility] [address] [place], [address] CO2 Normal 21.0-32.0 [facility] Comment on above: Result Comment: Canc elled via OM: MD Ordered Performed By: #### L 500.2500 #### [facility] [address] [place], [address] CREAT,SERUM Normal 0.70-1.20 [facility] Comment on above: Result Comment: Canc elled via OM: MD Ordered Performed By: #### L 500.2500 #### [facility] [address] [place], [address] eGFR Normal >60 [facility] Comment on above: Result Comment: Canc elled via OM: MD Ordered Performed By: #### L 500.2500 #### [facility] [address] [place], [address] GAP Normal 5-15 [facility] Comment on above: Result Comment: Canc elled via OM: MD Ordered Performed By: #### L 500.2500 #### [facility] [address] [place], [address] GLU Normal 70-99 [facility] Comment on above: Result Comment: Canc elled via OM: MD Ordered Performed By: #### L 500.2500 #### [facility] [address] [place], [address] Potassium Normal 3.3-5.1 [facility] Comment on above: Result Comment: Canc elled via OM: MD Ordered Performed By: #### L 500.2500 #### [facility] [address] [place], [address] Basic Metabolic Profile (BMP) Normal 133-145 [facility] Comment on above: Result Comment: Canc elled via OM: MD Ordered Performed By: #### L 500.2500 #### [facility] [address] [place], [address] CBC-Complete Blood Cnt No Di ffon 08-06-2024 HCT Normal 37-47 [facility] Comment on above: Result Comment: Canc elled via OM: MD Ordered Performed By: #### L 100.0500 #### [facility] [address] [place], [address] HGB Normal 12.0-15.0 [facility] Comment on above: Result Comment: Canc elled via OM: MD Ordered Performed By: #### L 100.0500 #### [facility] [address] [place], [address] MCH Normal 27.0-32.0 [facility] Comment on above: Result Comment: Canc elled via OM: MD Ordered Performed By: #### L 100.0500 #### [facility] [address] [place], [address] MCHC Normal 32-36 [facility] Comment on above: Result Comment: Canc elled via OM: MD Ordered Performed By: #### L 100.0500 #### [facility] [address] [place], [address] MCV Normal 81-99 [facility] Comment on above: Result Comment: Canc elled via OM: MD Ordered Performed By: #### L 100.0500 #### [facility] [address] [place], [address] PLT Normal 150-450 [facility] Comment on above: Result Comment: Canc elled via OM: MD Ordered Performed By: #### L 100.0500 #### [facility] [address] [place], [address] RBC Normal 4.2-5.4 [facility] Comment on above: Result Comment: Canc elled via OM: MD Ordered Performed By: #### L 100.0500 #### [facility] [address] [place], [address] RDW CV Normal 11.6-14.6 [facility] Comment on above: Result Comment: Canc elled via OM: MD Ordered Performed By: #### L 100.0500 #### [facility] [address] [place], [address] RDW SD Normal 35.1-43.9 [facility] Comment on above: Result Comment: Canc elled via OM: MD Ordered Performed By: #### L 100.0500 #### [facility] [address] [place], [address] WBC Normal 4.4-11.0 [facility] Comment on above: Result Comment: Canc elled via OM: MD Ordered Performed By: #### L 100.0500 #### [facility] [address] [place], [address] Basic Metabolic Profile (BMP )on 08-04-2024 BUN Normal 4-19 [facility] Comment on above: Result Comment: Canc elled via OM: MD Ordered Performed By: #### L 100.0100, L500.4050, L501.2450 #### [facility] [address] [place], [address] BUN/CRE Normal 10-20 [facility] Comment on above: Result Comment: Canc elled via OM: MD Ordered Performed By: #### L 100.0100, L500.4050, L501.2450 #### [facility] [address] [place], [address] Calcium Normal 7.6-11.0 [facility] Comment on above: Result Comment: Canc elled via OM: MD Ordered Performed By: #### L 100.0100, L500.4050, L501.2450 #### [facility] [address] [place], [address] CL Normal 98-108 [facility] Comment on above: Result Comment: Canc elled via OM: MD Ordered Performed By: #### L 100.0100, L500.4050, L501.2450 #### [facility] [address] [place], [address] CO2 Normal 21.0-32.0 [facility] Comment on above: Result Comment: Canc elled via OM: MD Ordered Performed By: #### L 100.0100, L500.4050, L501.2450 #### [facility] [address] [place], [address] CREAT,SERUM Normal 0.70-1.20 [facility] Comment on above: Result Comment: Canc elled via OM: MD Ordered Performed By: #### L 100.0100, L500.4050, L501.2450 #### [facility] [address] [place], [address] eGFR Normal >60 [facility] Comment on above: Result Comment: Canc elled via OM: MD Ordered Performed By: #### L 100.0100, L500.4050, [id number] #### [facility] [address] [place], [address] GAP Normal 5-15 [facility] Comment on above: Result Comment: Canc elled via OM: MD Ordered Performed By: #### L 100.0100, L500.4050, [id number] #### [facility] [address] [place], [address] GLU Normal 70-99 [facility] Comment on above: Result Comment: Canc elled via OM: MD Ordered Performed By: #### L 100.0100, L500.4050, [id number] #### [facility] [address] [place], [address] Potassium Normal 3.3-5.1 [facility] Comment on above: Result Comment: Canc elled via OM: MD Ordered Performed By: #### L 100.0100, L500.4050, L501.2450 #### [facility] [address] [place], [address] Basic Metabolic Profile (BMP) Normal 133-145 [facility] Comment on above: Result Comment: Canc elled via OM: MD Ordered Performed By: #### L 100.0100, L500.4050, L501.2450 #### [facility] [address] [place], [address] CBC-Complete Blood Cnt No Di ffon 08-04-2024 HCT Normal 37-47 [facility] Comment on above: Result Comment: Canc elled via OM: MD Ordered Performed By: #### L 100.0500 #### [facility] [address] [place], [address] HGB Normal 12.0-15.0 [facility] Comment on above: Result Comment: Canc elled via OM: MD Ordered Performed By: #### L 100.0500 #### [facility] [address] [place], [address] MCH Normal 27.0-32.0 [facility] Comment on above: Result Comment: Canc elled via OM: MD Ordered Performed By: #### L 100.0500 #### [facility] [address] [place], [address] MCHC Normal 32-36 [facility] Comment on above: Result Comment: Canc elled via OM: MD Ordered Performed By: #### L 100.0500 #### [facility] [address] [place], [address] MCV Normal 81-99 [facility] Comment on above: Result Comment: Canc elled via OM: MD Ordered Performed By: #### L 100.0500 #### [facility] [address] [place], [address] PLT Normal 150-450 [facility] Comment on above: Result Comment: Canc elled via OM: MD Ordered Performed By: #### L 100.0500 #### [facility] [address] [place], [address] RBC Normal 4.2-5.4 [facility] Comment on above: Result Comment: Canc elled via OM: MD Ordered Performed By: #### L 100.0500 #### [facility] [address] [place], [address] RDW CV Normal 11.6-14.6 [facility] Comment on above: Result Comment: Canc elled via OM: MD Ordered Performed By: #### L 100.0500 #### [facility] [address] [place], [address] RDW SD Normal 35.1-43.9 [facility] Comment on above: Result Comment: Canc elled via OM: MD Ordered Performed By: #### L 100.0500 #### [facility] [address] [place], [address] WBC Normal 4.4-11.0 [facility] Comment on above: Result Comment: Canc elled via OM: MD Ordered Performed By: #### L 100.0500 #### [facility] [address] [place], [address] Basic Metabolic Profile (BMP )on 08-03-2024 BUN Normal 4-19 [facility] Comment on above: Result Comment: Canc elled via OM: Order cancelled - Patient discharged Performed By: #### L 500.2500 #### [facility] [address] [place], [address] BUN/CRE Normal 10-20 [facility] Comment on above: Result Comment: Canc elled via OM: Order cancelled - Patient discharged Performed By: #### L 500.2500 #### [facility] [address] [place], [address] Calcium Normal 7.6-11.0 [facility] Comment on above: Result Comment: Canc elled via OM: Order cancelled - Patient discharged Performed By: #### L 500.2500 #### [facility] [address] [place], [address] CL Normal 98-108 [facility] Comment on above: Result Comment: Canc elled via OM: Order cancelled - Patient discharged Performed By: #### L 500.2500 #### [facility] [address] [place], [address] CO2 Normal 21.0-32.0 [facility] Comment on above: Result Comment: Canc elled via OM: Order cancelled - Patient discharged Performed By: #### L 500.2500 #### [facility] [address] [place], [address] CREAT,SERUM Normal 0.70-1.20 [facility] Comment on above: Result Comment: Canc elled via OM: Order cancelled - Patient discharged Performed By: #### L 500.2500 #### [facility] [address] [place], [address] eGFR Normal >60 [facility] Comment on above: Result Comment: Canc elled via OM: Order cancelled - Patient discharged Performed By: #### L 500.2500 #### [facility] [address] [place], [address] GAP Normal 5-15 [facility] Comment on above: Result Comment: Canc elled via OM: Order cancelled - Patient discharged Performed By: #### L 500.2500 #### [facility] [address] [place], [address] GLU Normal 70-99 [facility] Comment on above: Result Comment: Canc elled via OM: Order cancelled - Patient discharged Performed By: #### L 500.2500 #### [facility] [address] [place], [address] Potassium Normal 3.3-5.1 [facility] Comment on above: Result Comment: Canc elled via OM: Order cancelled - Patient discharged Performed By: #### L 500.2500 #### [facility] [address] [place], [address] Basic Metabolic Profile (BMP) Normal 133-145 [facility] Comment on above: Result Comment: Canc elled via OM: Order cancelled - Patient discharged Performed By: #### L 500.2500 #### [facility] [address] [place], [address] Folates, RBCon 08-03-2024 Fol.,Hemolysate 318.0 ng/mL Normal Not Estab. [facility] Comment on above: Performed By: #### L 400.0001 #### [facility] [address] [place], [address] Folate, RBC 869 ng/mL Normal >498 [facility] Comment on above: Result Comment: Perf ormed at: - [facility] [address] [id number] Clinical Nurse Leader: Joshua Burciaga PhD, Phone: [phone] Performed By: #### L 400.0001 #### [facility] [address] [place], [address] Hematocrit (Bld) [Volume fraction] 36.6 % Normal 34.0-46.6 [facility] Comment on above: Performed By: #### L 400.0001 #### [facility] [address] [place], [address] Anion gap in Serum or Plasma Ordered By: Cl Jamison on 08-02-2024 Anion gap [Moles/Vol] 11 mmol/L 5-15 [facility] BUN/creatinine ratioOrdered By: Cl Jamison on 08-02-2024 Urea nitrogen/Creatinine [Mass ratio] 5.3 mg/mg Low 10-20 [facility] Basic Metabolic Profile (BMP )on 08-02-2024 BUN/CRE 5.3 RATIO Low 10-20 [facility] Comment on above: Performed By: #### L 100.0100, L500.4050, L501.2450 #### [facility] [address] [place], [address] Calcium [Mass/Vol] 7.3 mg/dL Low 7.6-11.0 [facility] Comment on above: Performed By: #### L 100.0100, L500.4050, L501.2450 #### [facility] [address] [place], [address] Chloride [Moles/Vol] 102 mmol/L Normal 98-108 [facility] [facility] Comment on above: Performed By: #### L 100.0100, L500.4050, L501.2450 #### [facility] [address] [place], [address] CO2 [Moles/Vol] 16.7 mmol/L Low 21.0-32.0 [facility] Comment on above: Performed By: #### L 100.0100, L500.4050, L501.2450 #### [facility] [address] [place], [address] Creatinine [Mass/Vol] 0.55 mg/dL Low 0.70-1.20 [facility] Comment on above: Performed By: #### L 100.0100, L500.4050, L501.2450 #### [facility] [address] [place] [place], [address] ECRCL 157.73 ml/min Normal 50-250 [facility] Comment on above: Performed By: #### L 100.0100, L500.4050, L501.2450 #### [facility] [address] [place], [address] GAP 11 Normal 5-15 [facility] Comment on above: Performed By: #### L 100.0100, L500.4050, L501.2450 #### [facility] [address] [place], [address] GFR/1.73 sq M.predicted among non-blacks MDRD (S/P/Bld) [Vol rate/Area] 130 mL/min/{1.73_m2} Normal >60 [facility] Comment on above: Result Comment: mL/m in/1.73m2 CKD-EPI Creatinine Equation (2020) Performed By: #### L 100.0100, L500.4050, L501.2450 #### [facility] [address] [place], [address] Glucose [Mass/Vol] 95 mg/dL Normal 70-99 [facility] Comment on above: Performed By: #### L 100.0100, L500.4050, L501.2450 #### [facility] [address] [place], [address] Potassium [Moles/Vol] 3.4 mmol/L Normal 3.3-5.1 [facility] Comment on above: Result Comment: Hemo lysis present, Results??could be affected. ?? Performed By: #### L 100.0100, L500.4050, L501.2450 #### [facility] [address] [place], [address] Sodium [Moles/Vol] 130 mmol/L Low 133-145 [facility] Comment on above: Performed By: #### L 100.0100, L500.4050, L501.2450 #### [facility] [address] [place], [address] Urea nitrogen [Mass/Vol] 3 mg/dL Low 4-19 [facility] Comment on above: Performed By: #### L 100.0100, L500.4050, L501.2450 #### [facility] [address] [place], [address] CBC-Complete Blood Cnt No Di ffon 08-02-2024 Erythrocyte distribution width (RBC) [Ratio] 16.6 % High 11.6-14.6 [facility] Comment on above: Performed By: #### L 100.0100, L500.4050, L501.2450 #### [facility] [address] [place], [address] Hematocrit (Bld) [Volume fraction] 36.2 % Low 37-47 [facility] Comment on above: Performed By: #### L 100.0100, L500.4050, L501.2450 #### [facility] [address] [place], [address] Hemoglobin (Bld) [Mass/Vol] 11.8 g/dL Low 12.0-15.0 [facility] Comment on above: Performed By: #### L 100.0100, L500.4050, L501.2450 #### [facility] [address] [place], [address] MCH (RBC) [Entitic mass] 32.0 pg Normal 27.0-32.0 [facility] Comment on above: Performed By: #### L 100.0100, L500.4050, L501.2450 #### [facility] [address] [place], [address] MCHC (RBC) [Mass/Vol] 32.6 g/dL Normal 32-36 [facility] Comment on above: Performed By: #### L 100.0100, L500.4050, L501.2450 #### [facility] [address] [place], [address] MCV (RBC) [Entitic vol] 98.1 fL Normal 81-99 [facility] Comment on above: Performed By: #### L 100.0100, L500.4050, L501.2450 #### [facility] [address] [place], [address] Platelet mean volume (Bld) [Entitic vol] 10.2 fL Normal 6.2-12.0 [facility] Comment on above: Performed By: #### L 100.0100, L500.4050, L501.2450 #### [facility] [address] [place], [address] Platelets (Bld) [#/Vol] 237 10*3/uL Normal 150-450 [facility] Comment on above: Performed By: #### L 100.0100, L500.4050, L501.2450 #### [facility] [address] [place], [address] RBC (Bld) [#/Vol] 3.69 10*6/uL Low 4.2-5.4 [facility] Comment on above: Performed By: #### L 100.0100, L500.4050, L501.2450 #### [facility] [address] [place], [address] RDW SD 60.2 fl High 35.1-43.9 [facility] Comment on above: Performed By: #### L 100.0100, L500.4050, L501.2450 #### [facility] [address] [place], [address] WBC (Bld) [#/Vol] 7.3 10*3/uL Normal 4.4-11.0 [facility] Comment on above: Performed By: #### L 100.0100, L500.4050, L501.2450 #### [facility] [address] [place], [address] Carbon dioxide, total [Moles /volume] in Central venous bloodOrdered By: Cl Jamison on 08-02-2024 CO2 [Moles/Vol] 16.7 mmol/L Low 21.0-32.0 [facility] Chloride assayOrdered By: Karol Jamison on 08-02-2024 Chloride [Moles/Vol] 102 mmol/L 98-108 [facility] Discharge Instructionon 07-08 Discharge Instruction [facility] Medical Records Department [address] [place] [address] Instructions for Home/Discharge Instructions 08/02/24 1545 MR#: [id number] Acct: [id number] Name: PATRICIA JAIME Rep #: [id number] : 2000 24 From: Cl Jamison DO PCP: Care Physician,No Primary Status:ADM IN Discharge Instructions Diet Discharge Diet: No restrictions DC O2, CPAP, BIPAP needs Home O2 Discharge instructions: No Dressing / Incision Return to work on:: 08/04/24 Follow Up Care Test Results: Test results from this visit will be discussed in further detail at your follow-up appointment, if applicable. Discharge Plan Admission Admit Date/Time: 07/31/24 17:57 Primary Reason for Your Visit: abdominal pain Attending Provider: Cl Jamison Primary Care Provider: Care Physician,No Primary Consulting Providers: Maciej Beach Instructions Forms: Work Excuse Discharge Orders/Prescription s Prescriptions: Continued fexofenadine [Dottie Allergy] 60 mg tablet 60 mg PO BID PRN (Reason: ALLERGIES) albuterol sulfate 0.63 mg/3 mL solution for nebulization 0.63 mg inhalation Q8H PRN (Reason: shortness of breath or wheezing) fluticasone propionate [24 Hour Allergy Relief] 50 mcg/actuation spray,suspension 1 spray intranasal DAILY PRN (Reason: nasal congestion) Rx Instructions: administer into each nostril albuterol sulfate [Ventolin HFA] 90 mcg/actuation HFA aerosol inhaler 2 puff inhalation Q4H PRN (Reason: Wheezing) Rx Instructions: with spacer fluticasone propion-salmeterol [Wixela Inhub] 250-50 mcg/dose blister with device 1 inh inhalation BID Referrals / Follow Up: Care Physician,No Primary [Primary Care Provider] - Disposition Disposition (needs filled in before D/C Order can be placed): Home, Self Care 08/02/24 1546 Cl Jamison DO CC: Dr. Maciej Beach DO; No Primary Care Physician Signed Normal [facility] Discharge Instruction [facility] Medical Records Department [address] [place] [address] Instructions for Home/Discharge Instructions 08/02/24 1511 MR#: [id number] Acct: [id number] Name: PATRICIA JAIME Rep #: [id number] : 2000 From: Cl Jamison DO PCP: Care Physician,No Primary Status:ADM IN Discharge Instructions Diet Discharge Diet: No restrictions DC O2, CPAP, BIPAP needs Home O2 Discharge instructions: No Dressing / Incision Discharge Activity: No Restrictions Follow Up Care Test Results: Test results from this visit will be discussed in further detail at your follow-up appointment, if applicable. Discharge Plan Admission Admit Date/Time: 07/31/24 17:57 Primary Reason for Your Visit: abdominal pain Attending Provider: Cl Jamison Primary Care Provider: Care Physician,No Primary Consulting Providers: Maciej Beach Discharge Orders/Prescription s Prescriptions: Continued fexofenadine [Dottie Allergy] 60 mg tablet 60 mg PO BID PRN (Reason: ALLERGIES) albuterol sulfate 0.63 mg/3 mL solution for nebulization 0.63 mg inhalation Q8H PRN (Reason: shortness of breath or wheezing) fluticasone propionate [24 Hour Allergy Relief] 50 mcg/actuation spray,suspension 1 spray intranasal DAILY PRN (Reason: nasal congestion) Rx Instructions: administer into each nostril albuterol sulfate [Ventolin HFA] 90 mcg/actuation HFA aerosol inhaler 2 puff inhalation Q4H PRN (Reason: Wheezing) Rx Instructions: with spacer fluticasone propion-salmeterol [Wixela Inhub] 250-50 mcg/dose blister with device 1 inh inhalation BID Referrals / Follow Up: Care Physician,No Primary [Primary Care Provider] - Disposition Disposition (needs filled in before D/C Order can be placed): Home, Self Care 08/02/24 1512 Cl Jamison DO CC: Dr. Maciej Beach, DO; No Primary Care Physician Signed Normal [facility] Erythrocyte distribution wid th ratioOrdered By: Cl Jamison on 08-02-2024 Erythrocyte distribution width (RBC) [Ratio] 16.6 % High 11.6-14.6 [facility] Erythrocyte distribution wid th standard deviationOrdered By: Cl Jamison on 08-02-2024 Erythrocyte distribution width (RBC) [Ratio] 60.2 fl High 35.1-43.9 [facility] Glomerular filtration rate ( GFR) estimation/1.73 sq m using serum, plasma, or whole bOrdered By: Cl Jamison on 08-02-2024 GFR/1.73 sq M.predicted among non-blacks MDRD (S/P/Bld) [Vol rate/Area] 130 mL/min/{1.73_m2} >60 [facility] Comment on above: mL/min/1.73m2 CKD-EP I Creatinine Equation (2020) Hematocrit Auto (Bld) [Volum e fraction]Ordered By: Cl Jamison on 08-02-2024 Hematocrit (Bld) [Volume fraction] 36.2 % Low 37-47 [facility] Hemoglobin measurementOrdere d By: Cl Jamison on 08-02-2024 Hemoglobin (Bld) [Mass/Vol] 11.8 g/dL Low 12.0-15.0 [facility] MCV (mean corpuscular volume ) determinationOrdered By: Cl Jamison on 08-02-2024 MCV (RBC) [Entitic vol] 98.1 fL 81-99 [facility] Mean corpuscular hemoglobin (MCH) determinationOrdered By: Cl Jamison on 08-02-2024 MCH (RBC) [Entitic mass] 32.0 pg 27.0-32.0 [facility] Mean corpuscular hemoglobin concentration (MCHC) determinationOrdered By: Cl Jamison on 08-02-2024 MCHC (RBC) [Mass/Vol] 32.6 g/dL 32-36 [facility] Mean platelet volume determi nationOrdered By: Cl Jamison on 08-02-2024 Platelet mean volume (Bld) [Entitic vol] 10.2 fL 6.2-12.0 [facility] Platelet countOrdered By: Karol yuan Shaheen on 08-02-2024 Platelets (Bld) [#/Vol] 237 10*3/uL 150-450 [facility] Potassium measurement (mass/ volume)Ordered By: Cl Jamison on 08-02-2024 Potassium (Unsp spec) [Mass/Vol] 3.4 mmol/L 3.3-5.1 [facility] Comment on above: Hemolysis present, R esults could be affected. RBC Auto (Bld) [#/Vol]Ordere d By: Cl Jamison on 08-02-2024 RBC (Bld) [#/Vol] 3.69 10*6/uL Low 4.2-5.4 [facility] Serum creatinine measurement (mass/volume)Ordered By: Cl Jamison on 08-02-2024 Creatinine [Mass/Vol] 0.55 mg/dL Low 0.70-1.20 [facility] Serum glucose measurement (m ass/volume)Ordered By: Cl Jamison on 08-02-2024 Glucose [Mass/Vol] 95 mg/dL 70-99 [facility] Serum or plasma calcium susanne urement (mass/volume)Ordered By: Cl Jamison on 08-02-2024 Calcium [Mass/Vol] 7.3 mg/dL Low 7.6-11.0 [facility] Serum or plasma urea nitroge n measurement (mass/volume)Ordered By: Cl Jamison on 08-02-2024 Urea nitrogen [Mass/Vol] 3 mg/dL Low 4-19 [facility] Sodium levelOrdered By: Huy Jamison on 08-02-2024 Sodium [Moles/Vol] 130 mmol/L Low 133-145 [facility] White blood cell (WBC) count Ordered By: Cl Jamison on 08-02-2024 WBC (Bld) [#/Vol] 7.3 10*3/uL 4.4-11.0 [facility] Absolute lymphocyte countOrd ered By: Maciej Beach on 08-01-2024 Lymphocytes Auto (Unsp spec) [#/Vol] 1.02 10*3/uL 0.83-4.51 [facility] Absolute neutrophil countOrd ered By: Maciejmarlon Beach on 08-01-2024 Neutrophils (Bld) [#/Vol] 8.5 10*3/uL High 2.0-7.7 [facility] Automated lymphocyte count a s percentage of total leukocytesOrdered By: Maciejmarlon Beach on 08-01-2024 Lymphocytes/100 WBC Auto (Unsp spec) 9.8 % Low 19-41 [facility] Basophil percentageOrdered B y: Maciej Beach on 08-01-2024 Basophils/100 WBC (Bld) 0.3 % 0-1 [facility] Bilirubin, totalOrdered By: Maciejmarlon Beach on 08-01-2024 Bilirubin [Mass/Vol] 0.56 mg/dL 0.00-1.30 [facility] CBC W/Diff, Automatedon 07-08 Absolute Lymph 1.02 X10 3/uL Normal 0.83-4.51 [facility] Comment on above: Performed By: #### L 400.0001 #### [facility] [address] [facility], [address] Absolute Neut 8.5 X10 3/uL High 2.0-7.7 [facility] Comment on above: Performed By: #### L 400.0001 #### [facility] [address] [facility], [address] Basophils/100 WBC (Bld) 0.3 % Normal 0-1 [facility] Comment on above: Performed By: #### L 400.0001 #### [facility] [address] [place], [address] Eosinophils/100 WBC (Bld) 0.3 % Normal 0-5 [facility] Comment on above: Performed By: #### L 400.0001 #### [facility] [address] [facility] [place], [address] Erythrocyte distribution width (RBC) [Ratio] 16.8 % High 11.6-14.6 [facility] Comment on above: Performed By: #### L 400.0001 #### [facility] [address] [place], [address] Hematocrit (Bld) [Volume fraction] 35.4 % Low 37-47 [facility] Comment on above: Performed By: #### L 400.0001 #### [facility] [address] [place], [address] Hemoglobin (Bld) [Mass/Vol] 11.8 g/dL Low 12.0-15.0 [facility] Comment on above: Performed By: #### L 400.0001 #### [facility] [address] [place], [address] IG% 0.600 Normal 0.0-0.9 [facility] Comment on above: Result Comment: IG% - Immature Granulocytes (promyelocytes, myelocytes and metamyelocytes) > 1% indicates that a LEFT SHIFT is Present. Performed By: #### L 400.0001 #### [facility] [address] [place], [address] Lymphocytes/100 WBC (Bld) 9.8 % Low 19-41 [facility] Comment on above: Performed By: #### L 400.0001 #### [facility] [address] [place], [address] MCH (RBC) [Entitic mass] 32.3 pg High 27.0-32.0 [facility] Comment on above: Performed By: #### L 400.0001 #### [facility] [address] [place], [address] MCHC (RBC) [Mass/Vol] 33.3 g/dL Normal 32-36 [facility] Comment on above: Performed By: #### L 400.0001 #### [facility] [address] [place], [address] MCV (RBC) [Entitic vol] 97.0 fL Normal 81-99 [facility] Comment on above: Performed By: #### L 400.0001 #### [facility] [address] [place], [address] Monocytes/100 WBC (Bld) 8.0 % Normal 0-10 [facility] Comment on above: Performed By: #### L 400.0001 #### [facility] [address] [place], [address] Neutrophils/100 WBC (Bld) 81.0 % High 47-70 [facility] Comment on above: Performed By: #### L 400.0001 #### [facility] [address] [place], [address] Nucleated RBC (Bld) [#/Vol] 0 10*3/uL Normal 0-5 [facility] Comment on above: Performed By: #### L 400.0001 #### [facility] [address] [place], [address] Platelet mean volume (Bld) [Entitic vol] 10.1 fL Normal 6.2-12.0 [facility] Comment on above: Performed By: #### L 400.0001 #### [facility] [address] [place], [address] Platelets (Bld) [#/Vol] 298 10*3/uL Normal 150-450 [facility] Comment on above: Performed By: #### L 400.0001 #### [facility] [address] [place], [address] RBC (Bld) [#/Vol] 3.65 10*6/uL Low 4.2-5.4 [facility] Comment on above: Performed By: #### L 400.0001 #### [facility] [address] [place], [address] RDW SD 60.6 fl High 35.1-43.9 [facility] Comment on above: Performed By: #### L 400.0001 #### [facility] [address] [place], [address] WBC (Bld) [#/Vol] 10.4 10*3/uL Normal 4.4-11.0 [facility] Comment on above: Performed By: #### L 400.0001 #### [facility] [address] [place], [address] Comprehensive Metabolic Prof ilon 08-01-2024 Albumin [Mass/Vol] 3.5 g/dL Normal 3.5-5.0 [facility] Comment on above: Performed By: #### L 400.0001 #### [facility] [address] [place], [address] Albumin/Globulin [Mass ratio] 1.5 {ratio} Normal 0.9-2.4 [facility] Comment on above: Performed By: #### L 400.0001 #### [facility] [address] [place], [address] ALK PHOS 80 U/L Normal 35-104 [facility] Comment on above: Performed By: #### L 400.0001 #### [facility] [address] [place], [address] ALT [Catalytic activity/Vol] 15 U/L Normal <=34 [facility] Comment on above: Performed By: #### L 400.0001 #### [facility] [address] [place], [address] AST [Catalytic activity/Vol] 24 U/L Normal <=31 [facility] Comment on above: Performed By: #### L 400.0001 #### [facility] [address] [place], [address] Bilirubin [Mass/Vol] 0.56 mg/dL Normal 0.00-1.30 [facility] Comment on above: Performed By: #### L 400.0001 #### [facility] [address] [place], [address] BUN/CRE 12.1 RATIO Normal 10-20 [facility] Comment on above: Performed By: #### L 400.0001 #### [facility] [address] [place], [address] Calcium [Mass/Vol] 7.5 mg/dL Low 7.6-11.0 [facility] Comment on above: Performed By: #### L 400.0001 #### [facility] [address] [place], [address] Chloride [Moles/Vol] 105 mmol/L Normal 98-108 [facility] Comment on above: Performed By: #### L 400.0001 #### [facility] [address] [place], [address] CO2 [Moles/Vol] 21.7 mmol/L Normal 21.0-32.0 [facility] Comment on above: Performed By: #### L 400.0001 #### [facility] [address] [place], [address] Creatinine [Mass/Vol] 0.51 mg/dL Low 0.70-1.20 [facility] Comment on above: Performed By: #### L 400.0001 #### [facility] [address] [place], [address] ECRCL 170.10 ml/min Normal 50-250 [facility] Comment on above: Performed By: #### L 400.0001 #### [facility] [address] [place], [address] GAP 12 Normal 5-15 [facility] Comment on above: Performed By: #### L 400.0001 #### [facility] [address] [place], [address] GFR/1.73 sq M.predicted among non-blacks MDRD (S/P/Bld) [Vol rate/Area] 133 mL/min/{1.73_m2} Normal >60 [facility] Comment on above: Result Comment: mL/m in/1.73m2 CKD-EPI Creatinine Equation (2020) Performed By: #### L 400.0001 #### [facility] [address] [place], [address] Globulin (S) [Mass/Vol] 2.3 g/dL Normal 2.2-4.2 [facility] Comment on above: Performed By: #### L 400.0001 #### [facility] [address] [place], [address] Glucose [Mass/Vol] 103 mg/dL High 70-99 [facility] Comment on above: Performed By: #### L 400.0001 #### [facility] [address] [place], [address] Potassium [Moles/Vol] 3.1 mmol/L Low 3.3-5.1 [facility] Comment on above: Performed By: #### L 400.0001 #### [facility] [address] [place], [address] Sodium [Moles/Vol] 138 mmol/L Normal 133-145 [facility] Comment on above: Performed By: #### L 400.0001 #### [facility] [address] [place], [address] T PROT 5.9 g/dL Normal 5.9-8.4 [facility] Comment on above: Performed By: #### L 400.0001 #### [facility] [address] [place], [address] Urea nitrogen [Mass/Vol] 6 mg/dL Normal 4-19 [facility] Comment on above: Performed By: #### L 400.0001 #### [facility] [address] [place], [address] Eosinophil percentageOrdered By: Maciej Beach on 08-01-2024 Eosinophils/100 WBC (Bld) 0.3 % 0-5 [facility] Ferritinon 08-01-2024 Ferritin [Mass/Vol] 54 ng/mL Normal 22-378 [facility] Comment on above: Performed By: #### L 400.0001 #### [facility] [address] [place], [address] Immature granulocytes/100 WB C Auto (Bld)Ordered By: Maciej Beach on 08-01-2024 Immature granulocytes/100 WBC (Bld) 0.600 % 0.0-0.9 [facility] Comment on above: IG% - Immature Granu locytes (promyelocytes, myelocytes and metamyelocytes) > 1% indicates that a LEFT SHIFT is Present. Iron measurement (mass/mass) Ordered By: Cl Jamison on 08-01-2024 Iron (Unsp spec) [Mass/Mass] 117 ug/dL 50-170 [facility] Iron+Iron Binding Capacityon 08-01-2024 Iron [Mass/Vol] 117 ug/dL Normal 50-170 [facility] Comment on above: Performed By: #### L 400.0001 #### [facility] [address] [place], [address] IRON SATURATION 36.0 Normal 13-59 [facility] Comment on above: Performed By: #### L 400.0001 #### [facility] [address] [facility] [address] TIBC 321 ug/dL Normal 250-450 [facility] Comment on above: Performed By: #### L 400.0001 #### [facility] [address] [facility] [address] UIBC 204 ug/dL Low 228-428 [facility] Comment on above: Performed By: #### L 400.0001 #### [facility] [address] [facility] [address] Laboratory - Chemistry and C hemistry - challengeOrdered By: Maciej Beach on 08-01-2024 AST [Catalytic activity/Vol] 24 U/L <32 [facility] MRCP Abdomen without Contras ton 08-01-2024 MRCP Abdomen without Contrast [facility] Imaging Services [address] [place], [place] [id number] MRCP Abdomen without Contrast MR#: [id number] Acct: [id number] Name: PATRICIA JAIME Rep #: [id number] : 2000 F 24 From: Lefty Gramajo MD PCP: Care Physician,No Primary Status: ADM IN Study: MRCP Abdomen without Contrast Date of Exam: Exam# [id number] Ordering Dr: Maciej Beach DO PROCEDURE: MRCP ABDOMEN WITHOUT CONTRAST 08/01/2024 REASON FOR EXAM: PANCREATITIS TECHNIQUE: MRCP performed according to protocol without contrast COMPARISON: CT 07/31/2024 FINDINGS: Normal liver. Normal kidneys. Normal spleen. Edema is noted around the pancreas with fluid in the anterior pararenal space compatible with pancreatitis. There is some fluid in the right pericolic gutter. No filling defects are identified within the gallbladder. No pericholecystic fluid is noted. I do not identify a distended pancreatic duct. No filling defects in the common bile duct are identified. Normal caliber of the intrahepatic biliary branches. MRI/MRCP Abdomen without Contrast IMPRESSION: Pancreatitis. Negative MRCP [facility] CC: Dr. Maciej Beach DO; No Primary Care Physician 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: Signed Normal [facility] Magnesiumon 08-01-2024 Magnesium [Mass/Vol] 1.3 mg/dL Low 1.5-2.2 [facility] Comment on above: Performed By: #### L 400.7600 #### [facility] [address] [place], [place], [address] Magnesium measurement (mass/ volume)Ordered By: Cl Jamison on 08-01-2024 Magnesium (Unsp spec) [Mass/Vol] 1.3 mg/dL Low 1.5-2.2 [facility] Magnetic resonance imaging r eportOrdered By: Lefty Gramajo on 08-01-2024 Study report [facility] Imaging Services [address] [place] [address] MRCP Abdomen without Contrast MR#: [id number] Acct: [id number] Name: PATRICIA JAIME Rep #: [id number] : 2000 F 24 From: Bari Gramajo MD PCP: Care Physician,No Primary Status: ADM IN Study:MRCP Abdomen without Contrast Date of E xam: 08/01/24 Exam# [id number] Ordering Dr: Maciej Beach DO PROCEDURE: MRCP ABDOMEN WITHOUT CONTRAST 08/01/2024 REASON FOR EXAM: PANCREATITIS TECHNIQUE: MRCP performed according to protocol without contrast COMPARISON: CT 07/31/2024 FINDINGS: Normal liver. Normal kidneys. Normal spleen. Edema is noted around the pancreas with fluid in the anterior pararenal space compatible with pancreatitis. There is some fluid in the right pericolic gutter. No filling defects are identified within the gallbladder. No pericholecystic fluid is noted. I do not identify a distended pancreatic duct. No filling defects in the common bile duct are identified. Normal caliber of the intrahepatic biliary branches. MRI/MRCP Abdomen without Contrast IMPRESSION: Pancreatitis. Negative MRCP Reading Location: [facility] CC: Dr. 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: Signed [facility] Monocyte percentageOrdered B y: Maciej Beach on 08-01-2024 Monocytes/100 WBC (Bld) 8.0 % 0-10 [facility] Neutrophil percentageOrdered By: Maciej Beach on 08-01-2024 Neutrophils/100 WBC (Bld) 81.0 % High 47-70 [facility] No Panel InformationOrdered By: Cl Jamison on 08-01-2024 Unsaturated Iron Binding Capacity 204 ug/dL Low 228-428 [facility] Nucleated red blood cell per centageOrdered By: Maciej Beach on 08-01-2024 Nucleated RBC/100 WBC (Bld) [Ratio] 0 % 0-5 [facility] Phosphoruson 08-01-2024 Phosphate [Mass/Vol] 2.9 mg/dL Normal 2.7-4.5 [facility] Comment on above: Performed By: #### L 400.7600 #### [facility] [address] [place], [place], [id number] Serum globulin measurementOr dered By: Maciej Beach on 08-01-2024 Globulin (S) [Mass/Vol] 2.3 g/dL 2.2-4.2 [facility] Serum or plasma alanine snyder otransferase (ALT) measurementOrdered By: Maciej Beach on 08-01-2024 ALT [Catalytic activity/Vol] 15 U/L <35 [facility] Serum or plasma albumin susanne urement (mass/volume)Ordered By: Maciej Beach on 08-01-2024 Albumin [Mass/Vol] 3.5 g/dL 3.5-5.0 [facility] Serum or plasma albumin/glob ulin mass ratioOrdered By: Maciej Beach on 08-01-2024 Albumin/Globulin [Mass ratio] 1.5 {ratio} 0.9-2.4 [facility] Serum or plasma alkaline karon sphatase measurementOrdered By: Maciej Beach on 08-01-2024 ALP [Catalytic activity/Vol] 80 U/L 35-104 [facility] Serum or plasma ferritin emily surement (mass/volume)Ordered By: Cl Jamison on 08-01-2024 Ferritin [Mass/Vol] 54 ng/mL 22-378 [facility] Serum or plasma iron saturat ion measurement (mass fraction)Ordered By: Cl Jamison on 08-01-2024 Iron saturation [Mass fraction] 36.0 % 13-59 [facility] Total proteinOrdered By: Kimberly Beach on 08-01-2024 Protein [Mass/Vol] 5.9 g/dL 5.9-8.4 [facility] Triglycerideson 08-01-2024 Triglyceride [Mass/Vol] 52 mg/dL Normal [facility] Comment on above: Result Comment: The drugs N-Acetylcysteine and Metamizole may falsely depress this assay. Normal range: <150 mg/dL Borderline High: 150-199 mg/dL High: 200-499 mg/dL Very High: >500 mg/dL Performed By: #### L 400.0001 #### [facility] [address] [place], [address] Triglycerides measurementOrd ered By: Maciej Beach on 08-01-2024 Triglyceride [Mass/Vol] 52 mg/dL <199 [facility] Comment on above: The drugs N-Acetylcy steine and Metamizole may falsely depress this assay. Normal range: <150 mg/dLBorderline High: 150-199 mg/dLHigh: 200-499 mg/dLVery High: >500 mg/dL Vitamin B12on 08-01-2024 Cobalamin (Vitamin B12) [Mass/Vol] 324 pg/mL Normal 180-914 [facility] Comment on above: Performed By: #### L 400.0001 #### [facility] [address] [place], [place], [address] Vitamin B12 ser/plasOrdered By: Cl Jamison on 08-01-2024 Cobalamin (Vitamin B12) [Mass/Vol] 324 pg/mL 180-914 [facility] Abdomen/Pelvis W IV Cont ONL Yon 07-31-2024 Abdomen/Pelvis W IV Cont ONLY [facility] Imaging Services [address] [place] [address] Abdomen/Pelvis W IV Cont ONLY MR#: [id number] Acct: [id number] Name: PATRICIA JAIME Rep #: [id number] : 2000 F 24 From: Jenny Florentino nd, MD PCP: Care Physician,No Primary Status: REG ER Study: Abdomen/Pelvis W IV Cont ONLY Date of Exam: Exam# [id number] Ordering Dr: Maciej Nance DO PROCEDURE: ABDOMEN/PELVIS W IV CONT ONLY N/A REASON FOR EXAM: ABDOMINAL PAIN TECHNIQUE: Abdomen and pelvis CT with intravenous contrast. Coronal and Sagittal reconstruction series were provided. PATIENT PREPARATION: Per protocol ORAL CONTRAST TYPE: None. CONTRAST: Isovue 370 VOLUME: 100 mL One or more dose reduction techniques were used (e.g., Automated exposure control, adjustment of the mA and/or kV according to patient size, use of iterative reconstruction technique. RADIATION DOSE SUMMARY: CTDlvol: 20 mGy DLP: 600 mGycm COMPARISON: CT abdomen pelvis 07/12/2024. FINDINGS: Lung bases: Unremarkable. The heart is normal in size. Liver: The liver is normal in size without focal hepatic mass. Diffuse hepatic steatosis. The major portal veins are patent. No biliary ductal dilation. Gallbladder: No radiopaque stones within the gallbladder. Spleen: Unremarkable. Pancreas: Development of ill-defined stranding and edema within the central mesentery, greatest surrounding the pancreatic head and body. Symmetric enhancement of the pancreatic parenchyma. No discrete fluid collection. Adrenals: No adrenal mass. Kidneys: No hydronephrosis or nephrolithiasis. Bladder: Decompressed. Reproductive Organs: Normal uterine size and contour. Ovaries are unremarkable. Bowel: The bowel loops are normal caliber. No abdominal ascites or free air. Normal appendix. Trace free fluid within the pelvic cul-de-sac. Lymph nodes: No suspicious lymph node enlargement. Vasculature: The abdominal aorta and IVC are normal. Bones: No aggressive osseous lesions. CT/Abdomen/Pelvis W IV Cont ONLY IMPRESSION: 1. Findings compatible with acute interstitial edematous pancreatitis (uncomplicated pancreatitis). 2. Diffuse hepatic steatosis. Reading Location: [id number] CC: Dr. Maciej Nance, DO; No Primary Care Physician 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: Signed Normal [facility] Absolute lymphocyte countOrd ered By: Maciej Nance on 07-31-2024 Lymphocytes Auto (Unsp spec) [#/Vol] 0.60 10*3/uL Low 0.83-4.51 [facility] Absolute neutrophil countOrd ered By: Maciej Nance on 07-31-2024 Neutrophils (Bld) [#/Vol] 11.7 10*3/uL High 2.0-7.7 [facility] Anion gap in Serum or Plasma Ordered By: Maciej Nance on 07-31-2024 Anion gap [Moles/Vol] 16 mmol/L High 5-15 [facility] Automated lymphocyte count a s percentage of total leukocytesOrdered By: Maciej Nance on 07-31-2024 Lymphocytes/100 WBC Auto (Unsp spec) 4.5 % Low 19-41 [facility] BUN/creatinine ratioOrdered By: Maciej Nance on 07-31-2024 Urea nitrogen/Creatinine [Mass ratio] 8.5 mg/mg Low 10-20 [facility] Basophil percentageOrdered B y: Maciej Nance on 07-31-2024 Basophils/100 WBC (Bld) 0.8 % 0-1 [facility] Bilirubin Test strip Ql (U)O rdered By: Maciej Nance on 07-31-2024 Bilirubin Ql (U) Negative Negative [facility] Bilirubin, totalOrdered By: Maciej Nance on 07-31-2024 Bilirubin [Mass/Vol] 0.31 mg/dL 0.00-1.30 [facility] CBC W/Diff, Automatedon 07-08 Absolute Lymph 0.60 X10 3/uL Low 0.83-4.51 [facility] Comment on above: Performed By: #### L 400.7600 #### [facility] [address] [place], [address] Absolute Neut 11.7 X10 3/uL High 2.0-7.7 [facility] Comment on above: Performed By: #### L 400.7600 #### [facility] [address] [place], [address] Basophils/100 WBC (Bld) 0.8 % Normal 0-1 [facility] Comment on above: Performed By: #### L 400.7600 #### [facility] [address] [place], [address] Eosinophils/100 WBC (Bld) 2.3 % Normal 0-5 [facility] Comment on above: Performed By: #### L 400.7600 #### [facility] [address] [place], [address] Erythrocyte distribution width (RBC) [Ratio] 16.4 % High 11.6-14.6 [facility] Comment on above: Performed By: #### L 400.7600 #### [facility] [address] [place], [address] Hematocrit (Bld) [Volume fraction] 41.9 % Normal 37-47 [facility] Comment on above: Performed By: #### L 400.7600 #### [facility] [address] [place], [address] Hemoglobin (Bld) [Mass/Vol] 13.8 g/dL Normal 12.0-15.0 [facility] Comment on above: Performed By: #### L 400.7600 #### [facility] [address] [place], [address] IG% 0.300 Normal 0.0-0.9 [facility] Comment on above: Result Comment: IG% - Immature Granulocytes (promyelocytes, myelocytes and metamyelocytes) > 1% indicates that a LEFT SHIFT is Present. Performed By: #### L 400.7600 #### [facility] [address], [address] Lymphocytes/100 WBC (Bld) 4.5 % Low 19-41 [facility] Comment on above: Performed By: #### L 400.7600 #### [facility] [address] [place], [address] MCH (RBC) [Entitic mass] 31.7 pg Normal 27.0-32.0 [facility] Comment on above: Performed By: #### L 400.7600 #### [facility] [address] [place], [address] MCHC (RBC) [Mass/Vol] 32.9 g/dL Normal 32-36 [facility] Comment on above: Performed By: #### L 400.7600 #### [facility] [address] [place], [address] MCV (RBC) [Entitic vol] 96.3 fL Normal 81-99 [facility] Comment on above: Performed By: #### L 400.7600 #### [facility] [address] [place], [address] Monocytes/100 WBC (Bld) 3.7 % Normal 0-10 [facility] Comment on above: Performed By: #### L 400.7600 #### [facility] [address] [place], [address] Neutrophils/100 WBC (Bld) 88.4 % High 47-70 [facility] Comment on above: Performed By: #### L 400.7600 #### [facility] [address] [place], [address] Nucleated RBC (Bld) [#/Vol] 0 10*3/uL Normal 0-5 [facility] Comment on above: Performed By: #### L 400.7600 #### [facility] [address] [place], [address] Platelet mean volume (Bld) [Entitic vol] 9.9 fL Normal 6.2-12.0 [facility] Comment on above: Performed By: #### L 400.7600 #### [facility] [address] [place], [address] Platelets (Bld) [#/Vol] 387 10*3/uL Normal 150-450 [facility] Comment on above: Performed By: #### L 400.7600 #### [facility] [address] [place], [address] RBC (Bld) [#/Vol] 4.35 10*6/uL Normal 4.2-5.4 [facility] Comment on above: Performed By: #### L 400.7600 #### [facility] [address] [place], [address] RDW SD 58.4 fl High 35.1-43.9 [facility] Comment on above: Performed By: #### L 400.7600 #### [facility] [address] [place], [address] WBC (Bld) [#/Vol] 13.3 10*3/uL High 4.4-11.0 [facility] Comment on above: Performed By: #### L 400.7600 #### [facility] [address] [place], [address] Carbon dioxide, total [Moles /volume] in Central venous bloodOrdered By: Maciej Nance on 07-31-2024 CO2 [Moles/Vol] 22.1 mmol/L 21.0-32.0 [facility] Chloride assayOrdered By: Gerald Nance on 07-31-2024 Chloride [Moles/Vol] 101 mmol/L 98-108 [facility] Comprehensive Metabolic Prof ilon 07-31-2024 Albumin [Mass/Vol] 4.1 g/dL Normal 3.5-5.0 [facility] Comment on above: Performed By: #### L 400.7600 #### [facility] [address] [place], [address] Albumin/Globulin [Mass ratio] 1.3 {ratio} Normal 0.9-2.4 [facility] Comment on above: Performed By: #### L 400.7600 #### [facility] [address] [place], [address] ALK PHOS 89 U/L Normal 35-104 [facility] Comment on above: Performed By: #### L 400.7600 #### [facility] [address] [place], [address] ALT [Catalytic activity/Vol] 23 U/L Normal <=34 [facility] Comment on above: Performed By: #### L 400.7600 #### [facility] [address] [place], [address] AST [Catalytic activity/Vol] 44 U/L High <=31 [facility] Comment on above: Result Comment: Hemo lysis present, Results??could be affected. ?? Performed By: #### L 400.7600 #### [facility] [address] [place], [address] Bilirubin [Mass/Vol] 0.31 mg/dL Normal 0.00-1.30 [facility] Comment on above: Performed By: #### L 400.7600 #### [facility] [address] [place], [address] BUN/CRE 8.5 RATIO Low 10-20 [facility] Comment on above: Performed By: #### L 400.7600 #### [facility] [address] [place], [address] Calcium [Mass/Vol] 9.5 mg/dL Normal 7.6-11.0 [facility] Comment on above: Performed By: #### L 400.7600 #### [facility] [address] [place], [address] Chloride [Moles/Vol] 101 mmol/L Normal 98-108 [facility] Comment on above: Performed By: #### L 400.7600 #### [facility] [address] [place], [address] CO2 [Moles/Vol] 22.1 mmol/L Normal 21.0-32.0 [facility] Comment on above: Performed By: #### L 400.7600 #### [facility] [address] [place], [address] Creatinine [Mass/Vol] 0.57 mg/dL Low 0.70-1.20 [facility] Comment on above: Performed By: #### L 400.7600 #### [facility] [address] [place], [address] ECRCL 152.20 ml/min Normal 50-250 [facility] Comment on above: Performed By: #### L 400.7600 #### [facility] [address] [place], [address] GAP 16 High 5-15 [facility] Comment on above: Performed By: #### L 400.7600 #### [facility] [address] [place], [address] GFR/1.73 sq M.predicted among non-blacks MDRD (S/P/Bld) [Vol rate/Area] 129 mL/min/{1.73_m2} Normal >60 [facility] Comment on above: Result Comment: mL/m in/1.73m2 CKD-EPI Creatinine Equation (2020) Performed By: #### L 400.7600 #### [facility] [address] [place], [address] Globulin (S) [Mass/Vol] 3.1 g/dL Normal 2.2-4.2 [facility] Comment on above: Performed By: #### L 400.7600 #### [facility] [address] [place], [address] Glucose [Mass/Vol] 130 mg/dL High 70-99 [facility] Comment on above: Performed By: #### L 400.7600 #### [facility] [address] [place], [address] Potassium [Moles/Vol] 3.9 mmol/L Normal 3.3-5.1 [facility] Comment on above: Result Comment: Hemo lysis present, Results??could be affected. ?? Performed By: #### L 400.7600 #### [facility] [address] [place], [address] Sodium [Moles/Vol] 139 mmol/L Normal 133-145 [facility] Comment on above: Performed By: #### L 400.7600 #### [facility] [address] [place], [place], [address] T PROT 7.2 g/dL Normal 5.9-8.4 [facility] Comment on above: Performed By: #### L 400.7600 #### [facility] [address] [place], [place], [address] Urea nitrogen [Mass/Vol] 5 mg/dL Normal 4-19 [facility] Comment on above: Performed By: #### L 400.7600 #### [facility] [address] [place], [place], [address] Emergency Department Summary on 07-31-2024 Emergency Department Summary [facility] Medical Records Department [address] [place] [address] Emergency Department Summary 07/31/24 MR#: [id number] Acct: [id number] Name: PATRICIA JAIME Rep #: [id number] : 2000 24 From: Maciej Nance DO PCP: Care Physician,No Primary Status:REG ER Location: ED ADDENDUM by Dr. Evans Scott DO on 07/31/24 at 1748 Patient signed out to me pending CT read after discussion with hospitalist. Acute pancreatitis from labs. CT with pancreatic edema no cyst. No cholelithiasis. Patient vomiting on my reevaluation. States pain not much improved. Ordered for continued IV fluids Zofran morphine. Same other is present states she does have strong alcohol history for the past 2 to 3 years up to 1/5 of liquor a day. She sometimes has morning tremors. Discussed about alcoholic withdrawal seizures. States a year ago she had seizures while she was drinking that when she stopped drinking. She stopped for 30 days and did not have seizures. No history of pancreatitis in the past. We discussed with hospitalist Dr. Beach for admission. 07/31/24 1747 Cosigner Signature (if applicable): cc: No Primary Care Physician * Signed HPI History of Present Illness Chief Complaint: Complaint Informant: patient Onset/Context/Benny brothers Onset: Yesterday Context: Gradual Onset Timing: Continuous Quality: Aching Location: Upper abdomen and lower thoracic back Worsened by: Nothing Relieved by: Nothing Narrative Narrative: Patient presents with upper abdominal pain that began yesterday. Patient states it is gradually getting worse. Patient states her pain is constant. Patient describes it as aching. Patient states it is mainly over the upper abdomen and radiates around to her back. Patient states nothing makes it worse and nothing makes it better. Patient admits to some nausea and vomiting. Patient denies any hematemesis or coffee-ground emesis. Patient denies any diarrhea, melena, or hematochezia. Patient is concerned that she has a urinary tract infection. [facility] Medical History Anxiety Allergies Seizure Asthma Home Medications ???Medication ???Instructions ???Recorded ???Last Taken ???Type albuterol sulfate 90 mcg/actuation 2 inh inhalation Q4H PRN shortne ss 10/30/23 Unknown History aerosol inhaler (Proventil HFA) of breath or wheezing albuterol sulfate 90 mcg/actuation 2 puff inhalation Q4H PRN PRN Unknown Rx aerosol inhaler (Ventolin HFA) Wheezing ##1 fexofenadine 60 mg tablet (Dottie 60 mg PO BID 10/30/23 Unknown Hi story Allergy) albuterol sulfate 90 mcg/actuation 2 puff inhalation Q4H PRN PRN Unknown Rx aerosol inhaler (Ventolin HFA) Wheezing ##1 promethazine 25 mg tablet 25 mg PO Q6H PRN nausea and Unknown Rx vomiting #20 tabs Allergy/AdvReac Type Severity Reaction Status Date / Time No Known Allergies Allergy Verified 07/31/24 12:18 Surgical History no surgical history no surgical history Social History (Updated 07/31/24 @ 13:[address] Maciej Nance DO) Smoking Status: Current every day smoker ROS ROS ED Constitutional Constitutional ED: Denies chills or fever(s) Eyes Eyes: Denies blurry vision or change in vision ENT ENT ED: Denies rhinorrhea or sore throat Cardiovascular Cardiovascular: Denies chest pain or palpitations Respiratory/Chest Respiratory/Chest: Denies cough or dyspnea Gastrointestinal Gastrointestinal: Reports abdominal pain, nausea and vomiting Genitourinary Genitourinary ED: Denies dysuria or hematuria Musculoskeletal Musculoskeletal: Reports back pain; Denies neck pain Integumentary Denies abscess or rash Neurologic Neurologic: Denies headache(s) or weakness Allergic/Immunologi c Allergic/Immunologi c ED: Denies mouth swelling or urticaria EXAM Physical Exam Const Vital Signs: 07/31/24 12:17 07/31/24 12:35 07/31/24 14:17 Temperature 99 F 98 F Temperature Source Temporal Temporal Pulse Rate 100 100 98 Respiratory Rate 16 16 16 Blood Pressure 148/100 H 148/100 H 154/102 H Blood Pressure Mean 116 116 119 Pulse Ox 98 99 98 Oxygen Delivery Method Room Air Positive well nourished and well developed Constitutional Narrative: BMI is 24.1 General Appearance ED: well developed and NAD HEENT Reports moist mucous membranes Neck supple and no JVD Resp normal respiratory effort and clear to auscultation bilaterally Cardio regular rate and regular rhythm GI non-distended Palpation: soft and tender epigastric, LUQ and RUQ; Negative for guarding or rebound tenderness present Back/Spine no CVA tenderness Extremity normal to inspection General Extremety ED: Negative for edema or tenderness Gene (more content not included)... Normal [facility] Eosinophil percentageOrdered By: Maciej Nance on 07-31-2024 Eosinophils/100 WBC (Bld) 2.3 % 0-5 [facility] Erythrocyte distribution wid th ratioOrdered By: Maciej Nance on 07-31-2024 Erythrocyte distribution width (RBC) [Ratio] 16.4 % High 11.6-14.6 [facility] Erythrocyte distribution wid th standard deviationOrdered By: Maciej Nance on 07-31-2024 Erythrocyte distribution width (RBC) [Ratio] 58.4 fl High 35.1-43.9 [facility] Glomerular filtration rate ( GFR) estimation/1.73 sq m using serum, plasma, or whole bOrdered By: Maciej Nance on 07-31-2024 GFR/1.73 sq M.predicted among non-blacks MDRD (S/P/Bld) [Vol rate/Area] 129 mL/min/{1.73_m2} >60 [facility] Comment on above: mL/min/1.73m2 CKD-EP I Creatinine Equation (2020) H AND P Exam - [facility] 07-31-2024 H&P Exam - Hospitalist [facility] Medical Records Department [address] [place] [address] H P Exam - Hospitalist 07/31/24 1801 MR#: [id number] Acct: [id number] Name: PATRICIA JAIME Rep #: [id number] : 2000 24 From: Maciej Beach DO PCP: Care Physician,No Primary Status:ADM IN Location: [facility] [id number] HPI - General General Date of Service: 07/31/24 Chief Complaint: Abdominal pain HPI Narrative PATRICIA JAIME, is a 24 F who presents with 1 day history of abdominal pain. Woke this morning at 06 30 with severe epigastric abdominal pain. Presented to the emergency room where it was noted that her lipase was 1063. CAT scan was ordered and did not show any clear to cholelithiasis but showed interstitial pancreatitis. Patient received pain medications as well as IV fluids. Patient admits to drinking 1/5 of liquor per day. Last drink was sometime last evening. Patient states that she can go days if not months without any alcohol and has no issues with alcohol withdrawal. She denies needs for any support in regards to abstaining from alcohol. Patient denies ever having had pancreatitis in the past. [facility] Medical History Anxiety Allergies Seizure Asthma Home Medications ???Medication ???Instructions ???Recorded ???Last Taken ???Type fexofenadine 60 mg tablet (Dottie 60 mg PO BID PRN ALLERGIES 10/2907/29/24 History Allergy) albuterol sulfate 0.63 mg/3 mL 0.63 mg inhalation Q8H PRN 07/31/ 5 Unknown History solution for nebulization shortness of breath or wheezing albuterol sulfate 90 mcg/actuation 2 puff inhalation Q4H PRN Wheezi ng 07/31/24 Unknown History aerosol inhaler (Ventolin HFA) fluticasone furoate 200 2 inh inhalation BID 07/31/24 Unkn own History mcg-vilanterol 25 mcg/dose inhalation powder (Breo Ellipta) fluticasone propionate 50 1 spray intranasal DAILY PRN nasal 07/31/24 Unknown History mcg/actuation nasal congestion spray,suspension (24 Hour Allergy Relief) Allergy/AdvReac Type Severity Reaction Status Date / Time No Known Allergies Allergy Verified 07/31/24 12:18 no significant family history Surgical History no surgical history Social History (Updated 07/31/24 @ 18:[address] Maciej Beach, DO) Smoking Status: Never smoker substance use type: marijuana ROS ROS Narrative Patient actively vomiting. States that the emesis is changed to neon green. All review of systems were negative except as mentioned above in the history of present illness and the other review of systems. Vital Signs Vital Signs Vital Signs: 07/31/24 12:17 07/31/24 12:35 07/31/24 14:17 Temperature 37.2 C 36.6 C Temperature Source Temporal Temporal Pulse Rate 100 100 98 Respiratory Rate 16 16 16 Blood Pressure 148/100 H 148/100 H 154/102 H Blood Pressure Mean 116 116 119 Pulse Ox 98 99 98 Oxygen Delivery Method Room Air 07/31/24 17:00 Temperature Temperature Source Pulse Rate 79 Respiratory Rate 16 Blood Pressure Blood Pressure Mean Pulse Ox 100 Oxygen Delivery Method Weight Weight: 71.9 kg Body Mass Index (BMI) 24.0 Physical Exam Narrative - Physical Exam General: Alert, Oriented x3, Cooperative. Retching while is in her room. HEENT: Atraumatic, PERRLA, EOMI, Normocephalic. Glasses Oral: Moist Mucosa, No Gingival or Mucosal Lesions/ Ulcerations Neck: Supple, No JVD, Negative Carotid Bruits Lungs: Clear to auscultation, Normal air movement Cardiovascular: Regular rate, Normal S1, Normal S2, No murmurs Abdomen: Bowel Sounds Present, Soft, epigastric tenderness. Non-Distended, No Hepato-splenomegaly Extremities: No clubbing, No cyanosis, No edema, Capillary Refill Less than 3 Seconds Skin: No rashes, No breakdown Musculoskeletal: No Tenderness to Palpation of Joints or Extremities Neurological: Moves all extremities spontaneously. Psych/Mental Status: Normal Affect, Appropriate Results Lab / Micro Data 07/31/24 13:24 07/31/24 13:24 Labs: Laboratory Results - last 24 hr 07/31/24 13:24: WBC 13.3 H, RBC 4.35, Hgb 13.8, Hct 41.9, MCV 96.3, MCH 31.7, MCHC 32.9, RDW Std Deviation 58.4 H, RDW Coeff of Ivy 16.4 H, Plt Count 387, MPV 9.9, Immature Gran % (Auto) 0.300, N eut % (Auto) 88.4 H, Lymph % (Auto) 4.5 L, Whitman % (Auto) 3.7, Eos % (Auto) 2.3, Baso % (Auto) 0.8, A bsolute Neuts (auto) 11.7 H, Absolute Lymphs (auto) 0.60 L, Nucleated RBC % 0, Sodium 139, Potassium 3.9, Chloride 101, Carbon Dioxide 22.1, Anion Gap 16 H, BUN 5, Creatinine 0.57 L, Estim Creat Clear Calc 152.20, Est GFR (MDRD) Non-Af 129, BUN/Creatinine Ratio 8.5 L, Glucose 130 H, Calcium 9.5, Total Bilirubin 0.31, AST 44 H, ALT 23, Alkaline Phosphatase 89, Total Protein 7.2, Albumin 4.1, Globulin (more content not included)... Normal [facility] Hematocrit Auto (Bld) [Volum e fraction]Ordered By: Maciej Nance on 07-31-2024 Hematocrit (Bld) [Volume fraction] 41.9 % 37-47 [facility] Hemoglobin measurementOrdere d By: Maciej Nance on 07-31-2024 Hemoglobin (Bld) [Mass/Vol] 13.8 g/dL 12.0-15.0 [facility] Immature granulocytes/100 WB C Auto (Bld)Ordered By: Maciej Nance on 07-31-2024 Immature granulocytes/100 WBC (Bld) 0.300 % 0.0-0.9 [facility] Comment on above: IG% - Immature Granu locytes (promyelocytes, myelocytes and metamyelocytes) > 1% indicates that a LEFT SHIFT is Present. Ketones Test strip Ql (U)Ord ered By: Maciej Nance on 07-31-2024 Ketones Ql (U) 50 mg/dl High Negative [facility] - Chemistry and C hemistry - challengeOrdered By: Maciej Nance on 07-31-2024 AST [Catalytic activity/Vol] 44 U/L High <32 [facility] Comment on above: Hemolysis present, R esults could be affected. Lipaseon 07-31-2024 Lipase [Catalytic activity/Vol] 1063 U/L High 13-75 [facility] Comment on above: Result Comment: Lon valles note: LIPASE revised reference range effective 22. New Lipase methodology. Expected to produce lower values than the previous assay method. NEW Reference Range: 13 - 75 U/L Performed By: #### L 400.7600 #### [facility] [place] [address], [address] Lipase measurementOrdered By : Maciej Nance on 07-31-2024 Lipase [Catalytic activity/Vol] 1063 U/L High 13-75 [facility] Comment on above: Please note:LIPASE r evised reference range effective 22. New Lipase methodology. Expected to produce lower values than the previous assay method. NEW Reference Range: 13 - 75 U/L MCV (mean corpuscular volume ) determinationOrdered By: Maciej Nance on 07-31-2024 MCV (RBC) [Entitic vol] 96.3 fL 81-99 [facility] Mean corpuscular hemoglobin (MCH) determinationOrdered By: Maciej Nance on 07-31-2024 MCH (RBC) [Entitic mass] 31.7 pg 27.0-32.0 [facility] Mean corpuscular hemoglobin concentration (MCHC) determinationOrdered By: Maciej Nance on 07-31-2024 MCHC (RBC) [Mass/Vol] 32.9 g/dL 32-36 [facility] Mean platelet volume determi nationOrdered By: Maciej Nance on 07-31-2024 Platelet mean volume (Bld) [Entitic vol] 9.9 fL 6.2-12.0 [facility] Microscopic analysis of urin e for red blood cells (RBC)Ordered By: Maciej Nance on 07-31-2024 Microscopic analysis of urine for red blood cells (RBC) 0 SEEN /hpf 0-5 [facility] Monocyte percentageOrdered B y: Maciej Nance on 07-31-2024 Monocytes/100 WBC (Bld) 3.7 % 0-10 [facility] Mucus LM Ql (Urine sed)Order ed By: Maciej Nance on 07-31-2024 Mucus Ql (Urine sed) 1+ /hpf [facility] Neutrophil percentageOrdered By: Maciej Nance on 07-31-2024 Neutrophils/100 WBC (Bld) 88.4 % High 47-70 [facility] Nitrite Test strip Ql (U)Ord ered By: Maciej Nance on 07-31-2024 Nitrite Ql (U) Negative Negative [facility] Nucleated red blood cell per centageOrdered By: Maciej Nance on 07-31-2024 Nucleated RBC/100 WBC (Bld) [Ratio] 0 % 0-5 [facility] Platelet countOrdered By: Gerald Nance on 07-31-2024 Platelets (Bld) [#/Vol] 387 10*3/uL 150-450 [facility] Potassium measurement (mass/ volume)Ordered By: Maciej Nance on 07-31-2024 Potassium (Unsp spec) [Mass/Vol] 3.9 mmol/L 3.3-5.1 [facility] Comment on above: Hemolysis present, R esults could be affected. ,Urineon 07-31-2024 Beta HCG ( test) Ql (U) Negative Normal [facility] Comment on above: Result Comment: Very dilute urine specimens, as indicated by a low specific gravity, may not contain software sales representative levels of hCG. If is still suspected, a first morning urine specimen should be collected 48 hours later and tested. Performed By: #### L 100.0100, L500.4050, L501.2450 #### [facility] [address] [place] [address]. [place], [address] Protein Test strip Ql (U)Ord ered By: Maciej Nance on 07-31-2024 Protein Ql (U) 30 mg/dl High Negative [facility] RBC Auto (Bld) [#/Vol]Ordere d By: Maciej Nance on 07-31-2024 RBC (Bld) [#/Vol] 4.35 10*6/uL 4.2-5.4 [facility] Serum creatinine measurement (mass/volume)Ordered By: Maciej Nance on 07-31-2024 Creatinine [Mass/Vol] 0.57 mg/dL Low 0.70-1.20 [facility] Serum globulin measurementOr dered By: Maciej Nance on 07-31-2024 Globulin (S) [Mass/Vol] 3.1 g/dL 2.2-4.2 [facility] Serum glucose measurement (m ass/volume)Ordered By: Maciej Nance on 07-31-2024 Glucose [Mass/Vol] 130 mg/dL High 70-99 [facility] Serum or plasma alanine snyder otransferase (ALT) measurementOrdered By: Maciej Nance on 07-31-2024 ALT [Catalytic activity/Vol] 23 U/L <35 [facility] Serum or plasma albumin susanne urement (mass/volume)Ordered By: Maciej Nance on 07-31-2024 Albumin [Mass/Vol] 4.1 g/dL 3.5-5.0 [facility] Serum or plasma albumin/glob ulin mass ratioOrdered By: Maciej Nance on 07-31-2024 Albumin/Globulin [Mass ratio] 1.3 {ratio} 0.9-2.4 [facility] Serum or plasma alkaline karon sphatase measurementOrdered By: Maciej Nance on 07-31-2024 ALP [Catalytic activity/Vol] 89 U/L 35-104 [facility] Serum or plasma calcium susanne urement (mass/volume)Ordered By: Maciej Nance on 07-31-2024 Calcium [Mass/Vol] 9.5 mg/dL 7.6-11.0 [facility] Serum or plasma urea nitroge n measurement (mass/volume)Ordered By: Maciej Nance on 07-31-2024 Urea nitrogen [Mass/Vol] 5 mg/dL 4-19 [facility] Sodium levelOrdered By: Maciej Nance on 07-31-2024 Sodium [Moles/Vol] 139 mmol/L 133-145 [facility] Squamous epithelial cells de tection in urine sediment by light microscopyOrdered By: Maciej Nance on 07-31-2024 Epithelial cells.squamous LM Ql (Urine sed) 0-5 SEEN /hpf 5-10 [facility] Total proteinOrdered By: Kimberly Nance on 07-31-2024 Protein [Mass/Vol] 7.2 g/dL 5.9-8.4 [facility] Urinalysis, Completeon 07-31 BACTERIA 1+ /hpf Normal None Seen [facility] Comment on above: Order Comment: CRITI GUERITA VALUE CALLED TO CYNDI GUTIERREZLILLYLOKI 07/12/24 0736 Regina Taylor. RESULTS READ BACK BY SAME. CLEAN CATCH Performed By: #### L 400.0001 #### [facility] [address] [place], [address] EPI,SQUAMOUS 0-5 SEEN Normal 5-10 [facility] Comment on above: Order Comment: CRITI GUERITA VALUE CALLED TO CYNDI ORTIZ 07/12/24 0736 Regina Taylor. RESULTS READ BACK BY SAME. CLEAN CATCH Performed By: #### L 400.0001 #### [facility] [address] [place], [address] Mucus Ql (Urine sed) 1+ /hpf Normal [facility] Comment on above: Order Comment: CRITI GUERITA VALUE CALLED TO CYNDI ORTIZ 07/12/24 0736 Regina Taylor. RESULTS READ BACK BY SAME. CLEAN CATCH Performed By: #### L 400.0001 #### [facility] [address] [place], [address] WBC 0-5 SEEN Normal 0-5 [facility] Comment on above: Order Comment: CRITI GUERITA VALUE CALLED TO CYNDI ORTIZ 07/12/24 0736 Regina Taylor. RESULTS READ BACK BY SAME. CLEAN CATCH Performed By: #### L 400.0001 #### [facility] [address] [place], [address] RBC 0 SEEN Normal 0-5 [facility] Comment on above: Order Comment: CRITI GUERITA VALUE CALLED TO CYNDI GUTIERREZLILLYLOKI 07/12/24 0736 Regina Taylor. RESULTS READ BACK BY SAME. CLEAN CATCH Performed By: #### L 400.0001 #### [facility] [address] [place], [address] Urine clarityOrdered By: Kimberly Nance on 07-31-2024 Clarity (U) Sl. Cloudy Clear [facility] Urine color determinationOrd ered By: Maciej Nance on 07-31-2024 Color (U) Yellow Yellow [facility] Urine glucose detectionOrder ed By: Maciej Nance on 07-31-2024 Glucose Ql (U) Normal mg/dl Normal [facility] Urine leukocyte esterase det ection by dipstickOrdered By: Maciej Nance on 07-31-2024 Leukocyte esterase Test strip Ql (U) 25 /ul High Negative [facility] Urine pHOrdered By: Maciej nuno on 07-31-2024 pH (U) 8.0 [pH] 5.0 - 8.0 [facility] Urine testOrdered By: Maciej Nance on 07-31-2024 HCG ( test) Ql (U) Negative [facility] Comment on above: Very dilute urine sp ecimens, as indicated by a low specificgravity, may not contain software sales representative levels of hCG. If is still suspected, a first morning urinespecimen should be collected 48 hours later and tested. Urine sediment bacteria coun t by microscopy (number/high power field)Ordered By: Maciej Nance on 07-31-2024 Bacteria LM.HPF (Urine sed) [#/Area] 1 /[HPF] None Seen [facility] Urine specific gravity measu rementOrdered By: Maciej Nance on 07-31-2024 Specific gravity (U) [Rel density] 1.015 1.002-1.030 [facility] Urine urobilinogen measureme ntOrdered By: Maciej Nance on 07-31-2024 Urobilinogen Ql (U) Normal mg/dl Normal [facility] White blood cell (WBC) count Ordered By: Maciej Nance on 07-31-2024 WBC (Bld) [#/Vol] 13.3 10*3/uL High 4.4-11.0 [facility] White blood cell countOrdere d By: Maciej Nance on 07-31-2024 White blood cell count 0-5 SEEN /hpf 0-5 [facility] 12 Lead EKGon 07-12-2024 12 Lead EKG [facility] Cardiovascular Services [address] [place] [address] 12 Lead EKG 07/12/24 0729 MR#: [id number] Acct: [id number] Name: PATRICIA JAIME Rep #: [id number] : 2000 From: Herminio Nicolas MD Attending Dr: Status: DEP ER Ordering Dr: Simone Connolly DO Date: 07/12/24 Location: ED Sex: F C Admitted: Test Reason : GENERAL Blood Pressure : */* mmHG Vent. Rate : 128 BPM Atrial Rate : 128 BPM P-R Int : 122 ms QRS Dur : 72 ms QT Int : 322 ms P-R-T Axes : 74 -36 66 degrees QTcB Int : 470 ms Sinus tachycardia Right atrial enlargement Left axis deviation Abnormal ECG Confirmed by Herminio Nicolas ([id number]), sound editor SARAI QUESADA ([id number]) on 07/15/2024 12:02:51 PM Referred By: TA Confirmed By: Herminio Nicolas 07/15/24 1202 Date Herminio Nicolas MD CC: Dr. Simone Connolly DO; No Primary Care Physician Signed Normal [facility] Abdomen/Pelvis without Conto n 07-12-2024 Abdomen/Pelvis without Cont [facility] Imaging Services [address] [place] [address] Abdomen/Pelvis without Cont MR#: [id number] Acct: [id number] Name: PATRICIA JAIME Rep #: [id number] : 2000 From: Rodrigo Pulliam MD PCP: Care Physician,No Primary Status: REG ER Study: Abdomen/Pelvis without Cont Date of Exam: 08/31 Exam# [id number] Ordering Dr: Simone Connolly DO PROCEDURE: ABDOMEN/PELVIS WITHOUT CONT 07/12/2024 REASON FOR EXAM: DIFFUSE ABDOMINAL PAIN TECHNIQUE: Abdomen and pelvis CT without intravenous contrast. Noncontrast technique limits evaluation of the abdominal and pelvic viscera. Coronal and Sagittal reconstruction series were provided. One or more dose reduction techniques were used (e.g., Automated exposure control, adjustment of the mA and/or kV according to patient size, use of iterative reconstruction technique). PATIENT PREPARATION: Per protocol ORAL CONTRAST TYPE: None. COMPARISON: None available FINDINGS: The lung bases are clear. The liver, gallbladder, adrenal glands, kidneys, pancreas and spleen appear within limits. No renal stones or hydronephrosis. Abdominal aorta appears within limits on noncontrast imaging. No adenopathy. No bowel dilation or free air. Normal caliber appendix without secondary signs. The ovaries, uterus and bladder appear within limits. No free fluid. CT/Abdomen/Pelvis without Cont IMPRESSION: No evidence of acute intra-abdominal process. Reading Location: [id number] CC: Dr. Simone Connolly DO; No Primary Care Physician 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: Signed Normal [facility] Absolute lymphocyte countOrd ered By: Simone Connolly on 07-12-2024 Lymphocytes Auto (Unsp spec) [#/Vol] 0.41 10*3/uL Low 0.83-4.51 [facility] Absolute neutrophil countOrd ered By: Simone Connolly on 07-12-2024 Neutrophils (Bld) [#/Vol] 17.7 10*3/uL High 2.0-7.7 [facility] Anion gap in Serum or Plasma Ordered By: Simone Connolly on 07-12-2024 Anion gap [Moles/Vol] 25 mmol/L High 5-15 [facility] Automated lymphocyte count a s percentage of total leukocytesOrdered By: Simone Connolly on 07-12-2024 Lymphocytes/100 WBC Auto (Unsp spec) 2.1 % Low 19-41 [facility] BUN/creatinine ratioOrdered By: Simone Connolly on 07-12-2024 Urea nitrogen/Creatinine [Mass ratio] 14.6 mg/mg 12-26 [facility] Basic Metabolic Profile (BMP )on 07-12-2024 BUN/CRE 14.6 RATIO Normal 12-26 [facility] Comment on above: Performed By: #### L 400.7600 #### [facility] [address] [place], [address] Calcium [Mass/Vol] 8.9 mg/dL Normal 7.6-11.0 [facility] Comment on above: Performed By: #### L 400.7600 #### [facility] [address] [place], [address] Chloride [Moles/Vol] 95 mmol/L Low 98-108 [facility] Comment on above: Performed By: #### L 400.7600 #### [facility] [address] [place], [address] CO2 [Moles/Vol] 12.2 mmol/L Low 21.0-32.0 [facility] Comment on above: Performed By: #### L 400.7600 #### [facility] [address] [place], [address] Creatinine [Mass/Vol] 0.85 mg/dL Normal 0.70-1.20 [facility] Comment on above: Performed By: #### L 400.7600 #### [facility] [address] [place], [address] ECRCL 102.06 ml/min Normal 50-250 [facility] Comment on above: Performed By: #### L 400.7600 #### [facility] [address] [place], [address] GAP 25 High 5-15 [facility] Comment on above: Performed By: #### L 400.7600 #### [facility] [address] [place], [address] GFR/1.73 sq M.predicted among non-blacks MDRD (S/P/Bld) [Vol rate/Area] 98 mL/min/{1.73_m2} Normal >60 [facility] Comment on above: Result Comment: mL/m in/1.73m2 CKD-EPI Creatinine Equation (2020) Performed By: #### L 400.7600 #### [facility] [address] [place], [address] Glucose [Mass/Vol] 142 mg/dL High 70-99 [facility] Comment on above: Performed By: #### L 400.7600 #### [facility] [address] [place], [address] Potassium [Moles/Vol] 5.2 mmol/L High 3.3-5.1 [facility] Comment on above: Result Comment: Hemo lysis present, Results??could be affected. ?? Performed By: #### L 400.7600 #### [facility] [address] [place], [address] Sodium [Moles/Vol] 133 mmol/L Normal 133-145 [facility] Comment on above: Performed By: #### L 400.7600 #### [facility] [address] [place], [address] Urea nitrogen [Mass/Vol] 12 mg/dL Normal 4-19 [facility] Comment on above: Performed By: #### L 400.7600 #### [facility] [address] [place], [address] Basophil percentageOrdered B y: Simone Connolly on 07-12-2024 Basophils/100 WBC (Bld) 0.4 % 0-1 [facility] Beta-Hydroxbytyrateon 2024 BETA-HYDROXYBUT 7.3 mmol/L Normal 0.0-0.3 [facility] Comment on above: Performed By: #### L 400.7600 #### [facility] [address] [place], [address] Beta-hydroxybutyrateOrdered By: Simone Connolly on 07-12-2024 Beta hydroxybutyrate [Mass/Vol] 7.3 mmol/L 0.0-0.3 [facility] Bilirubin Test strip Ql (U)O rdered By: Simone Connolly on 07-12-2024 Bilirubin Ql (U) Negative Negative [facility] Bilirubin, totalOrdered By: Simone Connolly on 07-12-2024 Bilirubin [Mass/Vol] 1.08 mg/dL Normal 0.00-1.30 [facility] Comment on above: Performed By: #### L 100.0100, L500.4050, L501.2450 #### [facility] [address] [place], [address] CBC W/Diff, Automatedon Absolute Lymph 0.41 X10 3/uL Low 0.83-4.51 [facility] Comment on above: Performed By: #### L 100.0100, L500.4050, L501.2450 #### [facility] [address] [place], [address] Absolute Neut 17.7 X10 3/uL High 2.0-7.7 [facility] Comment on above: Performed By: #### L 100.0100, L500.4050, L501.2450 #### [facility] [address] [place], [address] Basophils/100 WBC (Bld) 0.4 % Normal 0-1 [facility] Comment on above: Performed By: #### L 100.0100, L500.4050, L501.2450 #### [facility] [address] [place], [address] Eosinophils/100 WBC (Bld) 0.0 % Normal 0-5 [facility] Comment on above: Performed By: #### L 100.0100, L500.4050, L501.2450 #### [facility] [address] [place], [address] Erythrocyte distribution width (RBC) [Ratio] 17.6 % High 11.6-14.6 [facility] Comment on above: Performed By: #### L 100.0100, L500.4050, L501.2450 #### [facility] [address] [place], [address] Hematocrit (Bld) [Volume fraction] 45.3 % Normal 37-47 [facility] Comment on above: Performed By: #### L 100.0100, L500.4050, L501.2450 #### [facility] [address] [place], [address] Hemoglobin (Bld) [Mass/Vol] 14.9 g/dL Normal 12.0-15.0 [facility] Comment on above: Performed By: #### L 100.0100, L500.4050, L501.2450 #### [facility] [address] [place], [address] IG% 0.500 Normal 0.0-0.9 [facility] Comment on above: Result Comment: IG% - Immature Granulocytes (promyelocytes, myelocytes and metamyelocytes) > 1% indicates that a LEFT SHIFT is Present. Performed By: #### L 100.0100, L500.4050, L501.2450 #### [facility] [address] [place], [address] Lymphocytes/100 WBC (Bld) 2.1 % Low 19-41 [facility] Comment on above: Performed By: #### L 100.0100, L500.4050, L501.2450 #### [facility] [address] [place], [address] MCH (RBC) [Entitic mass] 31.2 pg Normal 27.0-32.0 [facility] Comment on above: Performed By: #### L 100.0100, L500.4050, L501.2450 #### [facility] [address] [place], [address] MCHC (RBC) [Mass/Vol] 32.9 g/dL Normal 32-36 [facility] Comment on above: Performed By: #### L 100.0100, L500.4050, L501.2450 #### [facility] [address] [place], [address] MCV (RBC) [Entitic vol] 94.8 fL Normal 81-99 [facility] Comment on above: Performed By: #### L 100.0100, L500.4050, L501.2450 #### [facility] [address] [place], [address] Monocytes/100 WBC (Bld) 4.5 % Normal 0-10 [facility] Comment on above: Performed By: #### L 100.0100, L500.4050, L501.2450 #### [facility] [address] [place], [address] Neutrophils/100 WBC (Bld) 92.5 % High 47-70 [facility] Comment on above: Performed By: #### L 100.0100, L500.4050, L501.2450 #### [facility] [address] [place], [address] Nucleated RBC (Bld) [#/Vol] 0 10*3/uL Normal 0-5 [facility] Comment on above: Performed By: #### L 100.0100, L500.4050, L501.2450 #### [facility] [address] [place], [address] Platelet mean volume (Bld) [Entitic vol] 10.4 fL Normal 6.2-12.0 [facility] Comment on above: Performed By: #### L 100.0100, L500.4050, L501.2450 #### [facility] [address] [place], [address] Platelets (Bld) [#/Vol] 393 10*3/uL Normal 150-450 [facility] Comment on above: Performed By: #### L 100.0100, L500.4050, L501.2450 #### [facility] [address] [place], [address] RBC (Bld) [#/Vol] 4.78 10*6/uL Normal 4.2-5.4 [facility] Comment on above: Performed By: #### L 100.0100, L500.4050, L501.2450 #### [facility] [address] [place], [address] RDW SD 60.7 fl High 35.1-43.9 [facility] Comment on above: Performed By: #### L 100.0100, L500.4050, L501.2450 #### [facility] [address] [place], [address] WBC (Bld) [#/Vol] 19.2 10*3/uL High 4.4-11.0 [facility] Comment on above: Performed By: #### L 100.0100, L500.4050, L501.2450 #### [facility] [address] [place], [address] CO2 (BldV) [Moles/Vol]Ordere d By: Simone Connolly on 07-12-2024 CO2 [Moles/Vol] 14 mmol/L Low 23-33 [facility] Carbon dioxide, total [Moles /volume] in Central venous bloodOrdered By: Simone Connolly on 07-12-2024 CO2 [Moles/Vol] 12.2 mmol/L Low 21.0-32.0 [facility] Chloride assayOrdered By: Jenna Connolly on 07-12-2024 Chloride [Moles/Vol] 95 mmol/L Low 98-108 [facility] Comprehensive Metabolic Prof ilon 07-12-2024 ALK PHOS 74 U/L Normal 35-104 [facility] Comment on above: Performed By: #### L 100.0100, L500.4050, L501.2450 #### [facility] [address] [place], [address] BUN/CRE 13.4 RATIO Normal 10-20 [facility] Comment on above: Performed By: #### L 100.0100, L500.4050, L501.2450 #### [facility] [address] [place], [address] Calcium [Mass/Vol] 10.1 mg/dL Normal 7.6-11.0 [facility] Comment on above: Performed By: #### L 100.0100, L500.4050, L501.2450 #### [facility] [address] [place], [address] Chloride [Moles/Vol] 88 mmol/L Low 98-108 [facility] Comment on above: Performed By: #### L 100.0100, L500.4050, L501.2450 #### [facility] [address] [place], [address] CO2 [Moles/Vol] 11.2 mmol/L Low 21.0-32.0 [facility] Comment on above: Performed By: #### L 100.0100, L500.4050, L501.2450 #### [facility] [address] [place], [address] Creatinine [Mass/Vol] 1.00 mg/dL Normal 0.70-1.20 [facility] Comment on above: Performed By: #### L 100.0100, L500.4050, L501.2450 #### [facility] [address] [place], [address] ECRCL 86.75 ml/min Normal 50-250 [facility] Comment on above: Performed By: #### L 100.0100, L500.4050, L501.2450 #### [facility] [address] [place], [address] GAP 36 High 5-15 [facility] Comment on above: Performed By: #### L 100.0100, L500.4050, L501.2450 #### [facility] [address] [place], [address] GFR/1.73 sq M.predicted among non-blacks MDRD (S/P/Bld) [Vol rate/Area] 80 mL/min/{1.73_m2} Normal >60 [facility] Comment on above: Result Comment: mL/m in/1.73m2 CKD-EPI Creatinine Equation (2020) Performed By: #### L 100.0100, L500.4050, L501.2450 #### [facility] [address] [place], [address] Glucose [Mass/Vol] 168 mg/dL High 70-99 [facility] Comment on above: Performed By: #### L 100.0100, L500.4050, L501.2450 #### [facility] [address] [place], [address] Potassium [Moles/Vol] 4.5 mmol/L Normal 3.3-5.1 [facility] Comment on above: Performed By: #### L 100.0100, L500.4050, L501.2450 #### [facility] [address] [place], [address] Sodium [Moles/Vol] 135 mmol/L Normal 133-145 [facility] Comment on above: Performed By: #### L 100.0100, L500.4050, L501.2450 #### [facility] [address] [place], [address] T PROT 9.3 g/dL High 5.9-8.4 [facility] Comment on above: Performed By: #### L 100.0100, L500.4050, L501.2450 #### [facility] [address] [place], [address] Urea nitrogen [Mass/Vol] 13 mg/dL Normal 4-19 [facility] Comment on above: Performed By: #### L 100.0100, L500.4050, L501.2450 #### [facility] [address] [place], [address] Comprehensive Metabolic Prof ilOrdered By: Simone Connolly on 07-12-2024 AST [Catalytic activity/Vol] 38 U/L High <=31 [facility] Comment on above: Performed By: #### L 100.0100, L500.4050, L501.2450 #### [facility] [address] [place], [address] Emergency Department Summary on 07-12-2024 Emergency Department Summary [facility] Medical Records Department [address] [place] [address] Emergency Department Summary 07/12/24 MR#: [id number] Acct: [id number] Name: PATRICIA JAIME Rep #: [id number] : 2000 24 From: Simone Connolly DO PCP: Care Physician,No Primary Status:REG ER Location: ED ADDENDUM by Dr. Simone Connolly DO on 07/12/24 at 1247 MDM Narrative: Patient was initially tachycardic with heart rate of 127 otherwise afebrile nontoxic-appearing. Exam with diffuse abdominal tenderness but no obvious peritoneal signs. I considered the following differential diagnosis: AAA, small bowel obstruction, abdominal perforation, appendicitis, pancreatitis, hepatobiliary pathology (acute cholecystitis), mesenteric ischemia, pathology (ie nephrolithiasis, pyelonephritis), cannabinol hyperemesis syndrome. I initially treated the patient with 1 L IV fluid, 1 mg of IV Haldol (given concern for cannabinol hyperemesis), 20 mg IV Pepcid. Given her second visit also obtain labs and a CT scan to rule out any life or limb threatening etiology. ALL IMAGES (IF OBTAINED) HAVE BEEN PERSONALLY REVIEWED AND INTERPRETED BY MYSELF. EKG with sinus tachycardia rate of 128, left ax deviation, otherwise normal intervals, no obvious STEMI, no obvious sign of significant electrolyte disturbance Urinalysis no evidence of UTI noted sign of dehydration with urine ketones Urine test is negative CT scan abdomen pelvis without contrast given lack of IV access showed no evidence of obvious acute intra-abdominal pathology On reexam evaluation of his abdominal pain was benign. Heart rate improved to 89. She was able tolerate p.o. Plan for discharge home with prescription for Phenergan. Suspect her presentation re lated to hyperemesis syndrome secondary to THC. Prior to discharge I did note that her CMP not resulted. Wait for CMP result which shows significant metabolic acidosis and elevated anion gap. Her clinical presentation likely represents severe dehydration and metabolic acidosis from likely lactic acidosis. Given her blood sugar was 142 I did obtain additional studies including a VBG and acetone. VBG showed no evidence of acidosis in terms of a normal pH however she did have significantly low bicarb at 13.6. She was given additional liter of fluid and more ED observation. Her acetone level came back negative and her repeat BMP showed improvement in acidosis and anion gap but only slightly so. On reevaluation patient abdominal exam being benign. She has no Kussmaul respirations. She notes she felt better. She was able to tolerate p.o. After 5 hours of ED observation she was offered admission at this time however refused stating she preferred to try from home. She noted she felt comfortable going home and trying Phenergan as needed for nausea and vomiting to return if anything change or specifically any vomiting. She noted she would take plenty of oral fluids and return if symptoms change or worsen. The patient and/or family, caregivers express understanding. The patient and/or family, caregivers agrees with the plan. Shared decision making: I will have a discussion with the patient and or visitors regarding risk/benefits of further testing or admission. They will be made aware of of the risk/benefits inherent in this decision they will be given the opportunity to voice understanding. Total critical care time today provided was at least 0 minutes. This excludes separately billable procedures. Critical care time (if documented) is secondary to the patient having high probability of clinically significant/life threatening deterioration in the patient's condition which required my urgent intervention. Impression: 1. Acute abdominal pain 2. Nausea, vomiting, and diarrhea 3. Tachycardia Dispo: Discharge home This note was generated with [employer] dictation software. It may contain incorrect words, spelling, and punctuation that were not noted in review of the chart prior to signing. 07/12/24 1247 Cosigner Signature (if applicable): cc: No Primary Care Physician * Signed HPI History of Present Illness Chief Complaint: Nausea/Vomiting [facility] Medical History Anxiety Allergies Seizure Asthma Home Medications ???Medication ???Instructions ???Recorded ???Last Taken ???Type albuterol sulfate 90 mcg/actuation 2 inh inhalation Q4H PRN shortne ss 10/30/23 Unknown History aerosol inhaler (Proventil HFA) of breath or wheezing albuterol sulfate 90 mcg/actuation 2 puff inhalation Q4H PRN PRN Unknown Rx aerosol inhaler (Ventolin HFA) Wheezing ##1 fexofenadine 60 mg tablet (Dottie 60 mg PO BID 10/30/23 Unknown Hi story Allergy) albuterol sulfate 90 mcg/actuation 2 puff inhalation Q4H PRN (more content not included)... Normal [facility] Eosinophil percentageOrdered By: Simone Connolly on 07-12-2024 Eosinophils/100 WBC (Bld) 0.0 % 0-5 [facility] Erythrocyte distribution wid th ratioOrdered By: Simone Connolly on 07-12-2024 Erythrocyte distribution width (RBC) [Ratio] 17.6 % High 11.6-14.6 [facility] Erythrocyte distribution wid th standard deviationOrdered By: Simone Connolly on 07-12-2024 Erythrocyte distribution width (RBC) [Ratio] 60.7 fl High 35.1-43.9 [facility] Glomerular filtration rate ( GFR) estimation/1.73 sq m using serum, plasma, or whole bOrdered By: Simone Connolly on 07-12-2024 GFR/1.73 sq M.predicted among non-blacks MDRD (S/P/Bld) [Vol rate/Area] 98 mL/min/{1.73_m2} >60 [facility] Comment on above: mL/min/1.73m2 CKD-EP I Creatinine Equation (2020) Hematocrit Auto (Bld) [Volum e fraction]Ordered By: Simone Connolly on 07-12-2024 Hematocrit (Bld) [Volume fraction] 45.3 % 37-47 [facility] Hemoglobin measurementOrdere d By: Simone Connolly on 07-12-2024 Hemoglobin (Bld) [Mass/Vol] 14.9 g/dL 12.0-15.0 [facility] Hyaline casts LM.LPF (Urine sed) [#/Area]Ordered By: Simone Connolly on 07-12-2024 Hyaline casts (Urine sed) [#/Area] 0 /[LPF] 0-5 [facility] Immature granulocytes/100 WB C Auto (Bld)Ordered By: Simone Connolly on 07-12-2024 Immature granulocytes/100 WBC (Bld) 0.500 % 0.0-0.9 [facility] Comment on above: IG% - Immature Granu locytes (promyelocytes, myelocytes and metamyelocytes) > 1% indicates that a LEFT SHIFT is Present. Ketones Test strip Ql (U)Ord ered By: Simone Connolly on 07-12-2024 Ketones Ql (U) 150 mg/dl Abnormal Negative [facility] Comment on above: CRITICAL VALUE *H Lipase measurementOrdered By : Simone Connolly on 07-12-2024 Lipase [Catalytic activity/Vol] 97 U/L High 13-75 [facility] Comment on above: Please note:LIPASE r evised reference range effective 22. New Lipase methodology. Expected to produce lower values than the previous assay method. NEW Reference Range: 13 - 75 U/L Result Comment: Lon valles note: LIPASE revised reference range effective 22. New Lipase methodology. Expected to produce lower values than the previous assay method. NEW Reference Range: 13 - 75 U/L Performed By: #### L 100.0100, L500.4050, L501.2450 #### [facility] [address] [place], [address] MCV (mean corpuscular volume ) determinationOrdered By: Simone Connolly on 07-12-2024 MCV (RBC) [Entitic vol] 94.8 fL 81-99 [facility] Mean corpuscular hemoglobin (MCH) determinationOrdered By: Simone Connolly on 07-12-2024 MCH (RBC) [Entitic mass] 31.2 pg 27.0-32.0 [facility] Mean corpuscular hemoglobin concentration (MCHC) determinationOrdered By: Simone Connolly on 07-12-2024 MCHC (RBC) [Mass/Vol] 32.9 g/dL 32-36 [facility] Mean platelet volume determi nationOrdered By: Simone Connolly on 07-12-2024 Platelet mean volume (Bld) [Entitic vol] 10.4 fL 6.2-12.0 [facility] Microscopic analysis of urin e for red blood cells (RBC)Ordered By: Simone Connolly on 07-12-2024 Microscopic analysis of urine for red blood cells (RBC) 0 SEEN /hpf 0-5 [facility] Monocyte percentageOrdered B y: Simone Connolly on 07-12-2024 Monocytes/100 WBC (Bld) 4.5 % 0-10 [facility] Mucus LM Ql (Urine sed)Order ed By: Simone Connolly on 07-12-2024 Mucus Ql (Urine sed) 0 SEEN /hpf [facility] Neutrophil percentageOrdered By: Simone Connolly on 07-12-2024 Neutrophils/100 WBC (Bld) 92.5 % High 47-70 [facility] Nitrite Test strip Ql (U)Ord ered By: Simone Connolly on 07-12-2024 Nitrite Ql (U) Negative Negative [facility] No Panel InformationOrdered By: Simone Connolly on 07-12-2024 Blood Gas Sample Site Not entered [facility] Blood Gas Specimen Type KATHY [facility] Oxygen Delivery Device Not entered [facility] Nucleated red blood cell per centageOrdered By: Simone Connolly on 07-12-2024 Nucleated RBC/100 WBC (Bld) [Ratio] 0 % 0-5 [facility] Platelet countOrdered By: Jenna Connolly on 07-12-2024 Platelets (Bld) [#/Vol] 393 10*3/uL 150-450 [facility] Potassium measurement (mass/ volume)Ordered By: Simone Connolly on 07-12-2024 Potassium (Unsp spec) [Mass/Vol] 5.2 mmol/L High 3.3-5.1 [facility] Comment on above: Hemolysis present, R esults could be affected. ,Urineon 07-12-2024 Beta HCG ( test) Ql (U) Negative Normal [facility] Comment on above: Result Comment: Very dilute urine specimens, as indicated by a low specific gravity, may not contain software sales representative levels of hCG. If is still suspected, a first morning urine specimen should be collected 48 hours later and tested. Performed By: #### L 400.7600 #### [facility] [address] [place], [address] Beta HCG ( test) Ql (U) Normal [facility] Comment on above: Result Comment: DUPL ICATE Performed By: #### L 400.7600 #### [facility] [address] [place], [address] INTERNAL QC OK? Normal [facility] Comment on above: Result Comment: DUPL ICATE Performed By: #### L 400.7600 #### [facility] [address] [place], [address] RECORD KIT LOT# Normal [facility] Comment on above: Result Comment: DUPL ICATE Performed By: #### L 400.7600 #### [facility] [address] [place], [address] Protein Test strip Ql (U)Ord ered By: Simone Connolly on 07-12-2024 Protein Ql (U) 500 mg/dl High Negative [facility] RBC Auto (Bld) [#/Vol]Ordere d By: Simone Connolly on 07-12-2024 RBC (Bld) [#/Vol] 4.78 10*6/uL 4.2-5.4 [facility] Serum creatinine measurement (mass/volume)Ordered By: Simone Connolly on 07-12-2024 Creatinine [Mass/Vol] 0.85 mg/dL 0.70-1.20 [facility] Serum globulin measurementOr dered By: Simone Connolly on 07-12-2024 Globulin (S) [Mass/Vol] 4.0 g/dL Normal 2.2-4.2 [facility] Comment on above: Performed By: #### L 100.0100, L500.4050, L501.2450 #### [facility] [address] [place], [address] Serum glucose measurement (m ass/volume)Ordered By: Simone Connolly on 07-12-2024 Glucose [Mass/Vol] 142 mg/dL High 70-99 [facility] Serum or plasma alanine snyder otransferase (ALT) measurementOrdered By: Simone Connolly on 07-12-2024 ALT [Catalytic activity/Vol] 19 U/L Normal <=34 [facility] Comment on above: Performed By: #### L 100.0100, L500.4050, L501.2450 #### [facility] [address] [place], [address] Serum or plasma albumin susanne urement (mass/volume)Ordered By: Simone Connolly on 07-12-2024 Albumin [Mass/Vol] 5.3 g/dL High 3.5-5.0 [facility] Comment on above: Performed By: #### L 100.0100, L500.4050, L501.2450 #### [facility] [address] [place], [address] Serum or plasma albumin/glob ulin mass ratioOrdered By: Simone Connolly on 07-12-2024 Albumin/Globulin [Mass ratio] 1.3 {ratio} Normal 0.9-2.4 [facility] Comment on above: Performed By: #### L 100.0100, L500.4050, L501.2450 #### [facility] [address] [place], [place], [id number] Serum or plasma alkaline karon sphatase measurementOrdered By: Simone Connolly on 07-12-2024 ALP [Catalytic activity/Vol] 74 U/L 35-104 [facility] Serum or plasma calcium susanne urement (mass/volume)Ordered By: Simone Connolly on 07-12-2024 Calcium [Mass/Vol] 8.9 mg/dL 7.6-11.0 [facility] Serum or plasma urea nitroge n measurement (mass/volume)Ordered By: Simone Connolly on 07-12-2024 Urea nitrogen [Mass/Vol] 12 mg/dL 4-19 [facility] Sodium levelOrdered By: Héctor Connolly on 07-12-2024 Sodium [Moles/Vol] 133 mmol/L 133-145 [facility] Squamous epithelial cells de tection in urine sediment by light microscopyOrdered By: Simone Connolly on 07-12-2024 Epithelial cells.squamous LM Ql (Urine sed) 0-5 SEEN /hpf 5-10 [facility] Total proteinOrdered By: Liz Connolly on 07-12-2024 Protein [Mass/Vol] 9.3 g/dL High 5.9-8.4 [facility] Urinalysis, Completeon 07-12 CAST,HYALINE 0-5 SEEN Normal 0-5 [facility] Comment on above: Order Comment: CRITI GUERITA VALUE CALLED TO CYNDI ORTIZ 07/12/24 0736 Regina Taylor. RESULTS READ BACK BY SAME. CLEAN CATCH Performed By: #### L 400.0001 #### [facility] [address] [place], [place], [address] EPI,SQUAMOUS 0-5 SEEN Normal 5-10 [facility] Comment on above: Order Comment: CRITI GUERITA VALUE CALLED TO CYNDI ORTIZ 07/12/24 0736 Regina Taylor. RESULTS READ BACK BY SAME. CLEAN CATCH Performed By: #### L 400.0001 #### [facility] [address] [place], [address] BACTERIA 0 SEEN Normal None Seen [facility] Comment on above: Order Comment: CRITI GUERITA VALUE [facility] 07/12/24 0736 Regina Taylor. RESULTS READ BACK BY SAME. CLEAN CATCH Performed By: #### L 400.0001 #### [facility] [address] [place], [address] Mucus Ql (Urine sed) 0 SEEN Normal [facility] Comment on above: Order Comment: CRITI GUERITA VALUE [facility] 07/12/24 0736 Regina Taylor. RESULTS READ BACK BY SAME. CLEAN CATCH Performed By: #### L 400.0001 #### [facility] [address] [place], [address] RBC 0 SEEN Normal 0-5 [facility] Comment on above: Order Comment: CRITI GUERITA VALUE [facility] 07/12/24 07 Regina Taylor. RESULTS READ BACK BY SAME. CLEAN CATCH Performed By: #### L 400.0001 #### [facility] [address] [place], [address] WBC 0 SEEN Normal 0-5 [facility] Comment on above: Order Comment: CRITI GUERITA VALUE [facility]ED [facility] 07/12/24 0736 Regina Taylor. RESULTS READ BACK BY SAME. CLEAN CATCH Performed By: #### L 400.0001 #### [facility] [address] [place], [address] Urine clarityOrdered By: Liz Connolly on 07-12-2024 Clarity (U) Clear Clear [facility] Urine color determinationOrd ered By: Simone Connolly on 07-12-2024 Color (U) Yellow Yellow [facility] Urine glucose detectionOrder ed By: Simone Connolly on 07-12-2024 Glucose Ql (U) Normal mg/dl Normal [facility] Urine leukocyte esterase det ection by dipstickOrdered By: Simone Connolly on 07-12-2024 Leukocyte esterase Test strip Ql (U) Negative Negative [facility] Urine pHOrdered By: Simone winston on 07-12-2024 pH (U) 5.0 [pH] 5.0 - 8.0 [facility] Urine testOrdered By: Simone Connolly on 07-12-2024 HCG ( test) Ql (U) Negative [facility] Comment on above: Very dilute urine sp ecimens, as indicated by a low specificgravity, may not contain software sales representative levels of hCG. If is still suspected, a first morning urinespecimen should be collected 48 hours later and tested. Urine sediment bacteria coun t by microscopy (number/high power field)Ordered By: Simone Connolly on 07-12-2024 Bacteria LM.HPF (Urine sed) [#/Area] 0 /[HPF] None Seen [facility] Urine specific gravity measu rementOrdered By: Simone Connolly on 07-12-2024 Specific gravity (U) [Rel density] 1.025 1.002-1.030 [facility] Urine urobilinogen measureme ntOrdered By: Simone Connolly on 07-12-2024 Urobilinogen Ql (U) Normal mg/dl Normal [facility] Venous Blood Gason Blood Gas Type KATHY Normal [facility] Comment on above: Performed By: #### L 400.7600 #### [facility] [address] [place], [address] CO2 [Moles/Vol] 14 mmol/L Low 23-33 [facility] Comment on above: Performed By: #### L 400.7600 #### [facility] [address] [place], [address] FI02 21.0 Normal [facility] Comment on above: Performed By: #### L 400.7600 #### [facility] [address] [place], [address] HCO3 (Bld) [Moles/Vol] 14 mmol/L Low 22-26 [facility] Comment on above: Performed By: #### L 400.7600 #### [facility] [address] [place], [address] O2 Delivery Dev Not entered Normal [facility] Comment on above: Performed By: #### L 400.7600 #### [facility] [address] [place], [address] SITE Not entered Normal [facility] Comment on above: Performed By: #### L 400.7600 #### [facility] [address] [place], [address] VBG BE -12 mmol/L Low -1.0-3.5 [facility] Comment on above: Performed By: #### L 400.7600 #### [facility] [address] [place], [address] VBG pCO2 23.6 mmHg Low 41-51 [facility] Comment on above: Performed By: #### L 400.7600 #### [facility] [address] [place], [address] VBG pH 7.37 Normal 7.32-7.42 [facility] Comment on above: Performed By: #### L 400.7600 #### [facility] [address] [place], [address] VBG PO2 87 mmHg High 25-40 [facility] Comment on above: Performed By: #### L 400.7600 #### [facility] [address] [place], [address] VBG SO2 97 High 50-70 [facility] Comment on above: Performed By: #### L 400.7600 #### [facility] [address] [place], [address] Venous blood base excess emily surementOrdered By: Simone Connolly on 07-12-2024 Base excess Calc (BldV) [Moles/Vol] -12 mmol/L Low -1.0-3.5 [facility] Venous blood bicarbonate emily surementOrdered By: Simone Connolly on 07-12-2024 HCO3 (Bld) [Moles/Vol] 14 mmol/L Low 22-26 [facility] Venous blood oxygen saturati on measurementOrdered By: Simone Connolly on 07-12-2024 Oxygen saturation in Blood 97 % High 50-70 [facility] Venous blood pH measurementO rdered By: Simone Connolly on 07-12-2024 pH (BldV) 7.37 [pH] 7.32-7.42 [facility] Venous blood partial pressur e of carbon dioxide measurementOrdered By: Simone Connolly on 07-12-2024 CO2 (BldV) [Partial pressure] 23.6 mm[Hg] Low 41-51 [facility] Venous blood partial pressur e of oxygen measurementOrdered By: Simone Connolly on 07-12-2024 Oxygen (BldV) [Partial pressure] 87 mm[Hg] High 25-40 [facility] White blood cell (WBC) count Ordered By: Simone Connolly on 07-12-2024 WBC (Bld) [#/Vol] 19.2 10*3/uL High 4.4-11.0 [facility] White blood cell countOrdere d By: Simone Connolly on 07-12-2024 White blood cell count 0 SEEN /hpf 0-5 [facility] Emergency Department Summary on 07-11-2024 Emergency Department Summary [facility] Medical Records Department [address] [place] [id number] Emergency Department Summary 07/11/24 MR#: [id number] Acct: [id number] Name: PATRICIA JAIME Rep #: [id number] : 2000 24 From: Shukri Matias MD PCP: Care Physician,No Primary Status:DEP ER Location: ED HPI HPI - GI History of Present Illness Chief Complaint: Diarrhea Informant: patient Abdominal Pain/Flank Pain Onset: Today Context: Gradual Onset Timing: Intermittent Quality: Cramping Current Severity: Gone Maximum Severity: Mild Worsened by: Nothing Relieved by: Nothing Nausea/Vomiting/Dolly sis GI Symptom: Positive for Nausea and Vomiting Onset: Today Severity: Mild Diarrhea/Melena/Hem atochezia GI Symptom: Positive for Diarrhea Onset: Today Stool Quality: Positive for Loose Severity: Mild Associated Symptoms Associated Symptoms: Negative for Dysuria, Frequency, Hematuria or Urgency Narrative Narrative: 24-year-old female history of anxiety, seizures and asthma. Has had nausea vomiting diarrhea today. Abdominal cramping. No fever. No dysuria. No hematemesis. No melena. No prior abdominal surgeries. Says her last menstrual period was 2 weeks ago and is not believe she is . Prior similar symptoms: Yes Recent Illness/Hospitaliza tion: No PFSH PFSH Medical History Anxiety Allergies Seizure Asthma Home Medications ???Medication ???Instructions ???Recorded ???Last Taken ???Type albuterol sulfate 90 mcg/actuation 2 inh inhalation Q4H PRN shortne ss 10/30/23 Unknown History aerosol inhaler (Proventil HFA) of breath or wheezing albuterol sulfate 90 mcg/actuation 2 puff inhalation Q4H PRN PRN Unknown Rx aerosol inhaler (Ventolin HFA) Wheezing ##1 fexofenadine 60 mg tablet (Dottie 60 mg PO BID 10/30/23 Unknown Hi story Allergy) albuterol sulfate 90 mcg/actuation 2 puff inhalation Q4H PRN PRN Unknown Rx aerosol inhaler (Ventolin HFA) Wheezing ##1 Allergy/AdvReac Type Severity Reaction Status Date / Time No Known Allergies Allergy Verified 07/11/24 18:17 Social History Smoking Status: Never smoker ROS ROS ED ROS Narrative Nausea, vomiting and diarrhea. Constitutional Constitutional ED: Denies chills or fever(s) ENT ENT ED: Denies ear pain Cardiovascular Cardiovascular: Denies chest pain Respiratory/Chest Respiratory/Chest: Denies cough Gastrointestinal Gastrointestinal: Reports abdominal pain, diarrhea, nausea and vomiting; Denies constipation or melena Genitourinary Genitourinary ED: Denies dysuria or hematuria Musculoskeletal Musculoskeletal: Denies arthralgias Integumentary Denies abscess Neurologic Neurologic: Denies headache(s) Psychiatric Psychiatric: Denies anxiety Endocrine Endocrinology: Denies polydipsia Hematologic/Lymphat ic Hematologic/Lymphat ic: Denies easy bleeding Allergic/Immunologi c Allergic/Immunologi c ED: Denies mouth swelling, tongue swelling or urticaria EXAM Physical Exam Narrative Exam Narrative: Well-appearing 24-year-old female. Vital signs are stable she is tachycardic when she initially presented in triage. That was almost 2 hours ago. H EENT exam pupils round reactive light. Mildly dry mucous membranes. No trauma. Neck nontender no JVD. No lymphadenopathy. Lungs clear to auscultation bilaterally. Heart tachycardic rate about 110 no murmur. Chest wall and ribs nontender. Abdomen soft nontender. Normal bowel sounds no peritoneal signs. No distention. No hernia or mass. No obstruction. Right upper and right lower quadrant and epigastric region are completely nontender. Moving all 4 extremities. Nontender no edema. Normal strength and range of motion. Back nontender. Neurologically she is awake alert. Answer questions following commands. NIH 0. Exam consistent with viral gastroenteritis. Mild dehydration. Const Vital Signs: 07/11/24 18:17 Temperature 96.8 F L Temperature Source Temporal Pulse Rate 130 H Respiratory Rate 22 H Blood Pressure 148/96 H Blood Pressure Mean 113 Pulse Ox 97 Oxygen Delivery Method Room Air Positive well nourished and well developed; Negative for obese, cachectic, contractures or unkempt General Appearance ED: well developed and NAD; Negative for unkempt, cachectic, contractures or pallor Nutritional Appearance: Negative for cachectic or obese HEENT Reports dry mucous membranes normocephalic and atraumatic Mouth ED: Yes dry mucous membranes Mouth: dry mucous membranes Eyes PERRL and EOMs intact bilaterally Neck no lymphadenopathy, supple and no JVD Resp normal respiratory effort and clear to auscultation bilaterally Effort and Inspection: Negative for (more content not included)... Normal [facility] ALLIED HEALTHon 05-06-2024 ALLIED HEALTH HNO ID: [id number] Author: JAMIE QUINONES RT(R) Service: Radiology Author Type: Technologist Type: Allied Health Filed: 05/06/2024 14:32 Note Text: Radiology Service Progress Note PATIENT NAME: Patricia Jaime DATE OF SERVICE: May 06, 2024 TIME: 2:32 PM PATIENT IDENTITY VERIFICATION COMPLETED USING TWO (2) IDENTIFIERS: Name and Date of confirmed by patient verbally and Name and Date of confirmed by identification band. FALL SCREENING: Has the patient had 2 falls in the last year or 1 fall with injury or currently using an Ambulatory Assistive Device (Walker, Cane, Wheelchair, Crutches, etc.)? Emergency Room Patient: Screened in ED PATIENT GENDER DATA: Assigned female at . status: status: NO. PATIENT RELEVANT IMPLANT DATA REVIEWED: Not Applicable PATIENT PRESENTS WITH AN IMPLANTABLE OR ATTACHED TERRAZZO ROLLER: No RADIOLOGY DEPARTMENT: General X-ray: Exam(s) Completed: Chest X-Ray PERIPHERAL IV DATA: Not applicable SIGNED BY: RT Gonsalo(R) May 06, 2024 2:32 PM Normal [facility] CBC W Auto Differential pane l (Bld)on 05-06-2024 Basophils (Bld) [#/Vol] 0.04 10*3/uL Normal <0.11 [facility] Comment on above: Order Comment: Speci men Type: BLOOD SPECIMEN Ordering Facility: [facility] Address: [address] [place] [address] Performed By: #### H STNT, 69001-9 #### [facility] CLIA [id number] [address] [place] [address] [place] Basophils/100 WBC (Bld) 0.6 % Normal [facility] Comment on above: Order Comment: Speci men Type: BLOOD SPECIMEN Ordering Facility: [facility] Address: [address] [place] [address] Performed By: #### H STNT, 44548-2 #### [facility] CLIA [id number] [address] [place] [address] [place] Differential cell count method Nom (Bld) Auto Normal [facility] Comment on above: Order Comment: Speci men Type: BLOOD SPECIMEN Ordering Facility: [facility] Address: [address] [place] [address] Performed By: #### H STNT, 80915-3 #### [facility] CLIA [id number] [address] [place] [address] [place] Eosinophils (Bld) [#/Vol] 0.74 10*3/uL High <0.46 [facility] Comment on above: Order Comment: Speci men Type: BLOOD SPECIMEN Ordering Facility: [facility] Address: [address] [place] [address] Performed By: #### H STNT, #### [facility] CLIA [id number] [address] [place] [address] [place] Eosinophils/100 WBC (Bld) 10.4 % Normal [facility] Comment on above: Order Comment: Speci men Type: BLOOD SPECIMEN Ordering Facility: [facility] Address: [address] [place] [address] Performed By: #### H STNT, #### [facility] CLIA [id number] [address] [place] [address] [place] Erythrocyte distribution width (RBC) [Ratio] 15.8 % High 11.5-15.0 [facility] Comment on above: Order Comment: Speci men Type: BLOOD SPECIMEN Ordering Facility: [facility] Address: [address] [place] [address] Performed By: #### H STNT, #### [facility] CLIA [id number] [address] [place] [address] [place] Hematocrit (Bld) [Volume fraction] 37.5 % Normal 36.0-46.0 [facility] Comment on above: Order Comment: Speci men Type: BLOOD SPECIMEN Ordering Facility: [facility] Address: [address] [place] [address] Performed By: #### H STNT, #### [facility] CLIA [id number] [address] [place] [address] [place] Hemoglobin (Bld) [Mass/Vol] 11.9 g/dL Normal 11.5-15.5 [facility] Comment on above: Order Comment: Speci men Type: BLOOD SPECIMEN Ordering Facility: [facility] Address: [address] [place] [address] Performed By: #### H STNT, #### [facility] CLIA [id number] [place] [address] [place] Immature granulocytes (Bld) [#/Vol] 10*3/uL Normal <0.10 [facility] Comment on above: Order Comment: Speci men Type: BLOOD SPECIMEN Ordering Facility: [facility] Address: [address] [place] [address] Performed By: #### H STNT, 71809-1 #### [facility] CLIA [id number] [address] [place] [address] [place] Immature granulocytes/100 WBC (Bld) 0.3 % Normal [facility] Comment on above: Order Comment: Speci men Type: BLOOD SPECIMEN Ordering Facility: [facility] Address: [address] [place] [address] Performed By: #### H STNT, 76383-3 #### [facility] CLIA [id number] [address] [place] [address] [place] Lymphocytes (Bld) [#/Vol] 1.38 10*3/uL Normal 1.00-4.0 0 [facility] Comment on above: Order Comment: Speci men Type: BLOOD SPECIMEN Ordering Facility: [facility] Address: [address] [place] [address] Performed By: #### H STNT, 21835-5 #### [facility] CLIA [id number] [address] [place] [address] [place] Lymphocytes/100 WBC (Bld) 19.4 % Normal [facility] Comment on above: Order Comment: Speci men Type: BLOOD SPECIMEN Ordering Facility: [facility] Address: [address] [place] [address] Performed By: #### H STNT, 44676-3 #### [facility] CLIA [id number] [address] [place] [address] [place] MCH (RBC) [Entitic mass] 29.7 pg Normal 26.0-34.0 [facility] Comment on above: Order Comment: Speci men Type: BLOOD SPECIMEN Ordering Facility: [facility] Address: [address] [place] [address] Performed By: #### H STNT, 51038-2 #### [facility] CLIA [id number] [address] [place] [address] [place] MCHC (RBC) [Mass/Vol] 31.7 g/dL Normal 30.5-36.0 [facility] Comment on above: Order Comment: Speci men Type: BLOOD SPECIMEN Ordering Facility: [facility] Address: [address] [place] [address] Performed By: #### H STNT, #### [facility] CLIA [id number] [address] [place] [address] [place] MCV (RBC) [Entitic vol] 93.5 fL Normal 80.0-100.0 [facility] Comment on above: Order Comment: Speci men Type: BLOOD SPECIMEN Ordering Facility: [facility] Address: [address] [place] [address] Performed By: #### H STNT, 27674-2 #### [facility] CLIA [id number] [address] [place] [address] [place] Monocytes (Bld) [#/Vol] 0.72 10*3/uL Normal <0.87 [facility] Comment on above: Order Comment: Speci men Type: BLOOD SPECIMEN Ordering Facility: [facility] Address: [address] [place] [address] Performed By: #### H STNT, 13139-3 #### [facility] CLIA [id number] [address] [place] [address] [place] Monocytes/100 WBC (Bld) 10.1 % Normal [facility] Comment on above: Order Comment: Speci men Type: BLOOD SPECIMEN Ordering Facility: [facility] Address: [address] [place] [address] Performed By: #### H STNT, 63951-5 #### [facility] CLIA [id number] [address] [place] [address] [place] Neutrophils (Bld) [#/Vol] 4.21 10*3/uL Normal 1.45-7.5 0 [facility] Comment on above: Order Comment: Speci men Type: BLOOD SPECIMEN Ordering Facility: [facility] Address: [address] [place] [address] Performed By: #### H STNT, #### [facility] CLIA [id number] [address] [place] [address] [place] Neutrophils/100 WBC (Bld) 59.2 % Normal [facility] Comment on above: Order Comment: Speci men Type: BLOOD SPECIMEN Ordering Facility: [facility] Address: [address] [place] [address] Performed By: #### H STNT, #### [facility] CLIA [id number] [address] [place] [address] [place] Nucleated RBC (Bld) [#/Vol] 10*3/uL Normal <0.01 [facility] Comment on above: Order Comment: Speci men Type: BLOOD SPECIMEN Ordering Facility: [facility] Address: [address] [place] [address] Performed By: #### H STNT, #### [facility] CLIA [id number] [address] [place] [address] [place] Nucleated RBC/100 WBC (Bld) [Ratio] 0.0 /100 WBC Normal [facility] Comment on above: Order Comment: Speci men Type: BLOOD SPECIMEN Ordering Facility: [facility] Address: [address] [place] [address] Performed By: #### H STNT, #### [facility] CLIA [id number] [address] [place] [address] [place] Platelet mean volume (Bld) [Entitic vol] 10.3 fL Normal 9.0-12.7 [facility] Comment on above: Order Comment: Speci men Type: BLOOD SPECIMEN Ordering Facility: [facility] Address: [address] [place] [address] Performed By: #### H STNT, #### [facility] CLIA [id number] [address] [place] [address] [place] Platelets (Bld) [#/Vol] 372 10*3/uL Normal 150-400 [facility] Comment on above: Order Comment: Speci men Type: BLOOD SPECIMEN Ordering Facility: [facility] Address: [address] [place] [address] Performed By: #### H STNT, 61232-1 #### [facility] CLIA [id number] [address] [place] [address] [place] RBC (Bld) [#/Vol] 4.01 10*6/uL Normal 3.90-5.20 [facility] Comment on above: Order Comment: Speci men Type: BLOOD SPECIMEN Ordering Facility: [facility] Address: [address] [place] [address] Performed By: #### H STNT, 14298-7 #### [facility] CLIA [id number] [address] [place] [address] [place] WBC (Bld) [#/Vol] 7.11 10*3/uL Normal 3.70-11.00 [facility] Comment on above: Order Comment: Speci men Type: BLOOD SPECIMEN Ordering Facility: [facility] Address: [address] [place] [address] Performed By: #### H STNT, 80712-8 #### [facility] CLIA [id number] [address] [place] [address] [place] Comprehensive metabolic 2000 panelon 05-06-2024 Albumin [Mass/Vol] 4.1 g/dL Normal 3.9-4.[address] [facility] Comment on above: Order Comment: Speci men Type: BLOOD SPECIMEN Ordering Facility: [facility] Address: [address] [place] [address] Performed By: #### H STNT, 61865-7 #### [facility] CLIA [id number] [address] [place] [address] [place] ALP [Catalytic activity/Vol] 60 U/L Normal 34-123 [facility] Comment on above: Order Comment: Speci men Type: BLOOD SPECIMEN Ordering Facility: [facility] Address: [address] [place] [address] Performed By: #### H STNT, 39547-9 #### [facility] CLIA [id number] [place] [address] [place] ALT [Catalytic activity/Vol] 15 U/L Normal 7-38 [facility] Comment on above: Order Comment: Speci men Type: BLOOD SPECIMEN Ordering Facility: [facility] Address: [address] [place] [address] Performed By: #### H STNT, 20902-1 #### [facility] CLIA [id number] [address] [place] [address] [place] Anion gap [Moles/Vol] 11 mmol/L Normal 8-15 [facility] Comment on above: Order Comment: Speci men Type: BLOOD SPECIMEN Ordering Facility: [facility] Address: [address] [place] [address] Performed By: #### H STNT, 91772-8 #### [facility] CLIA [id number] [address] [place] [address] [place] AST [Catalytic activity/Vol] 22 U/L Normal 13-35 [facility] Comment on above: Order Comment: Speci men Type: BLOOD SPECIMEN Ordering Facility: [facility] Address: [address] [place] [address] Performed By: #### H STNT, 49271-7 #### [facility] CLIA [id number] [address] [place] [address] [place] Bilirubin [Mass/Vol] 0.5 mg/dL Normal 0.2-1.3 [facility] Comment on above: Order Comment: Speci men Type: BLOOD SPECIMEN Ordering Facility: [facility] Address: [address] [place] [address] Performed By: #### H STNT, 65820-7 #### [facility] CLIA [id number] [address] [place] [address] [place] Calcium [Mass/Vol] 9.1 mg/dL Normal 8.5-10.[address] [facility] Comment on above: Order Comment: Speci men Type: BLOOD SPECIMEN Ordering Facility: [facility] Address: [address] [place] [address] Performed By: #### H STNT, 84256-6 #### [facility] CLIA [id number] [address] [place] [address] [place] Chloride [Moles/Vol] 102 mmol/L Normal 98-107 [facility] Comment on above: Order Comment: Speci men Type: BLOOD SPECIMEN Ordering Facility: [facility] Address: [address] [place] [address] Performed By: #### H STNT, 29249-0 #### [facility] CLIA [id number] [address] [place] [address] [place] CO2 [Moles/Vol] 26 mmol/L Normal 22-30 [facility] Comment on above: Order Comment: Speci men Type: BLOOD SPECIMEN Ordering Facility: [facility] Address: [address] [place] [address] Performed By: #### H STNT, 68745-7 #### [facility] CLIA [id number] [address] [place] [address] [place] Creatinine [Mass/Vol] 0.56 mg/dL Low 0.58-0.96 [facility] Comment on above: Order Comment: Speci men Type: BLOOD SPECIMEN Ordering Facility: [facility] Address: [address] [place] [address] Performed By: #### H STNT, 14809-1 #### [facility] CLIA [id number] [address] [place] [address] [place] Creatinine and Glomerular filtration rate.predicted panel (S/P/Bld) 130 mL/min/1.73m??? Normal >=60 [facility] Comment on above: Order Comment: Speci men Type: BLOOD SPECIMEN Ordering Facility: [facility] Address: [address] [place] [address] Result Comment: Leda mated Glomerular Filtration Rate (eGFR) is calculated using the 2020 CKD-EPI creatinine equation. This equation utilizes serum creatinine, sex, and age as parameters. The creatinine assay has traceable calibration to isotope dilution-mass spectrometry. Refer to KDIGO guidelines for clinical interpretation. In patients with unstable renal function, e.g. those with acute kidney injury, the eGFR may not accurately reflect actual GFR. Performed By: #### H STNT, 19582-5 #### [facility] CLIA [id number] [address] [place] [address] [place] Glucose [Mass/Vol] 87 mg/dL Normal 74-[address] [facility] Comment on above: Order Comment: Dyllan gifford Type: BLOOD SPECIMEN Ordering Facility: [facility] Address: [address] [place] [address] Result Comment: The [place] [employer] (ADA) provides guidance for cutoff values for fasting glucose and random glucose. The ADA defines fasting as no caloric intake for at least 8 hours. Fasting plasma glucose results between 100 to 125 mg/dL indicate increased risk for diabetes (prediabetes). Fasting plasma glucose results greater than or equal to 126 mg/dL meet the criteria for diagnosis of diabetes. In the absence of unequivocal hyperglycemia, results should be confirmed by repeat testing. In a patient with classic symptoms of hyperglycemia or hyperglycemic crisis, random plasma glucose results greater than or equal to 200 mg/dL meet the criteria for diagnosis of diabetes. Reference: Standards of Medical Care in Diabetes 2016, [place] [employer]. Diabetes Care. 2016.39(Suppl 1). Performed By: #### H STNT, 64492-4 #### [facility] CLIA [id number] [address] [place] [address] [place] Potassium [Moles/Vol] 3.1 mmol/L Low 3.7-5.1 [facility] Comment on above: Order Comment: Dyllan gifford Type: BLOOD SPECIMEN Ordering Facility: [facility] Address: [address] [place] [address] Performed By: #### H STNT, 65826-8 #### [facility] CLIA [id number] [address] [place] [address] [place] Protein [Mass/Vol] 7.2 g/dL Normal 6.3-8.[address] [facility] Comment on above: Order Comment: Dyllan gifford Type: BLOOD SPECIMEN Ordering Facility: [facility] Address: [address] [place] [address] Performed By: #### H STNT, 34226-6 #### [facility] CLIA [id number] [address] [place] [address] [place] Sodium [Moles/Vol] 139 mmol/L Normal 136-[address] [facility] Comment on above: Order Comment: Speci men Type: BLOOD SPECIMEN Ordering Facility: [facility] Address: [address] [place] [address] Performed By: #### H STNT, 12196-6 #### [facility] CLIA [id number] [address] [place] [address] [place] Urea nitrogen [Mass/Vol] 7 mg/dL Normal 7-21 [facility] Comment on above: Order Comment: Speci men Type: BLOOD SPECIMEN Ordering Facility: [facility] Address: [address] [place] [address] Performed By: #### H STNT, 46846-8 #### [facility] CLIA [id number] [address] [place] [address] OF [facility] ED NOTEon 05-06-2024 ED NOTE HNO ID: [id number] Author: JUAN LEWIS RN Service: ? Author Type: Registered Nurse Type: ED Notes Filed: 05/06/2024 16:44 Note Text: Pt follow up care, appointment and new mediations discussed with pt. Pt verbalized understanding and RN answered all pt questions. IV removed. Pt gait and vitals stable upon discharge. Normal [facility] ED NOTE HNO ID: [id number] Author: LASHONDA OCHOA RN Service: ? Author Type: Registered Nurse Type: ED Notes Filed: 05/06/2024 14:36 Note Text: Bed: 08-ED Expected date: Expected time: Means of arrival: Comments: triage Normal [facility] ED PROV NOTEon 05-06-2024 ED PROV NOTE HNO ID: [id number] Author: MEENA SMITH MD Service: ? Author Type: Physician Type: ED Provider Notes Filed: 05/06/2024 16:40 Note Text: ED Provider Note Patient Name: Patricia Jaime : 2000 SERVICE DATE: 2/28/25 History Patient presents with: Shortness of Breath: X several days, hx of asthma. No relief with inhalers or tx at home. Denies cough, fever, chills. Chest tightness HPI Chief Complaint: Asthma History: Over the last 4 days, the patient has developed a dry cough, wheezing, shortness of breath, and chest tightness. She states this feels exactly like my asthma. She has tried her albuterol at home with minimal relief. She denies any lower extremity issues. No abdominal pain or back pain or syncope. She states she has not been admitted to the hospital overnight for asthma since she was a little child. She states that she has not had to take steroids for a few months for asthma. No fevers or chills. No other associated symptoms with this complaint. Quality: Dry cough with wheezing Severity: Moderate Timing: For: Gradually worse over the last 4 days Constant/Present Now Modifying Factors: None Context: Normal setting and activity Associated Symptoms: None, except as noted above. Medications: Albuterol, Dottie, and Advair Past medical history: Asthma Past surgical history: No surgeries Family history: Positive for asthma Social history: Non-smoker ALLERGIES No Known Allergies Review of Systems Constitutional: Negative for chills and fever. HENT: Negative for congestion, ear pain, rhinorrhea, sneezing and sore throat. Eyes: Negative for pain, discharge, redness and visual disturbance. Respiratory: Positive for cough, chest tightness, shortness of breath and wheezing. Cardiovascular: Negative for chest pain, palpitations and leg swelling. Gastrointestinal: Negative for abdominal pain, diarrhea, nausea and vomiting. Genitourinary: Negative for difficulty urinating, dysuria, flank pain, hematuria, pelvic pain, vaginal bleeding and vaginal discharge. Musculoskeletal: Negative for back pain and myalgias. Skin: Negative for color change and rash. Neurological: Negative for syncope, weakness, numbness and headaches. Hematological: Negative for adenopathy. Psychiatric/Behavio ral: Negative for hallucinations, self-injury and suicidal ideas. Physical Exam Vitals BP Pulse Temp Temp src Resp SpO2 Weight Height 05/06/24 1416 05/06/24 1416 05/06/24 1416 05/06/24 1416 05/06/24 1416 05/06/24 1416 05/06/24 1415 05/06/24 1415 151/74 (!) 92 36.9 ?C (98.4 ?F) Oral 22 (!) 93 % 72.6 kg (160 lb) 1.727 m (5' 8) Physical Exam Vital signs and Nursing notes were reviewed Gen Appearance: Patient is alert and oriented and in no acute distress. Neck: Supple, Trach/Thyroid normal. No JVD. EENT: PERRLA, EOMI, Conjunctivae normal. Nares are clear bilaterally. Oropharynx is clear. Clear and fluent speech. Skin: Warm and dry with no rash. Cardiovascular: Heart RRR, no gallops or rubs, no aorta enlargement or bruit noted. 2+ radial, ulnar, DP, PT pulses equal and symmetric bilaterally. No lower extremity swelling. Respiratory: Lungs show wheezing bilaterally. Gastrointestinal: Abdomen non tender, no rebound/guarding/di stention or mass. Musculoskeletal: No tenderness to extremities. Neurological: Pt is alert and oriented x 3, memory intact, no focal motor or sensory deficits noted, normal gait. Diagnostic Testing ED Labs Ordered and Reviewed COMPLETE BLOOD COUNT AND DIFFERENTIAL - Abnormal; Notable for the following components: Result Value Ref Range RDW-CV 15.8 (*) 11.5 - 15.0 % Abs Eosin 0.74 (*) <0.46 k/uL All other components within normal limits COMPREHENSIVE METABOLIC PANEL - Abnormal; Notable for the following components: Creatinine 0.56 (*) 0.58 - 0.96 mg/dL Potassium 3.1 (*) 3.7 - 5.1 mmol/L All other components within normal limits HCG QUALITATIVE - Normal HIGH SENSITIVITY TROPONIN T - Normal Results for orders placed or performed during the hospital encounter of 05/06/24 EKG Impression Sinus rhythm Normal ECG Confirmed by MD SANDERSON BRYAN ([id number]) on 05/06/2024 2:18:36 PM Procedures ED Course / Clinical Impression Clinical Impressions as of 05/06/24 1638 Moderate persistent asthma with acute exacerbation Non-smoker Hypokalemia MDM / Disposition / Plan History and Record Review External record(s) reviewed: prior outpatient record. Findings from review of outpatient records: The patient has a history of asthma. Differential Diagnoses - Asthma exacerbation is more likely for the following reason(s): suggested by HANDP, consistent with imaging and consistent with laboratory studies - Anemia/renal failure/liver failure/metabolic disturbance/pregnan cy is less likely for the following reason(s): laboratory studies not suggestive and HANDP not suggestive - ACS Less likely b (more content not included)... Normal [facility] ED Triage Noteon 05-06-2024 ED Triage Note HNO ID: [id number] Author: CHRISTIANO SANDERSON DO Service: Emergency Medicine Author Type: Physician Type: ED Triage Notes Filed: 05/06/2024 14:18 Note Text: ED INTAKE NOTE Patient Name: Patricia Jaime SERVICE DATE: 05/06/24 Patient presents with: Shortness of Breath: X several days, hx of asthma. No relief with inhalers or tx at home. Denies cough, fever, chills. Chest tightness BRIEF HPI: Patricia Jaime is a 24 year old female presenting to the ED for wheezing X day + H/o asthma , feels similar Chest tightness, no radiation Denies prior pe/dvt, recent travel, recent surgery, hemoptysis, trauma, or known clotting disorder. No GI/gu complaints BRIEF EXAM: BP 151/74 Pulse 92 Temp (Src) 98.4 (Oral) Resp 22 Ht 5' 8 (1.73m) Wt 160 lb (72.6kg) SpO2 93% BMI 24.33 kg/(m2). O2 Therapy: Room Air Awake and Alert WEBB NAD Exp wheezing Ambulating INTAKE WORKUP: Orders Placed This Encounter XR CHEST 1V FRONTAL PORT CBC + AUTO DIFF COMPREHENSIVE METABOLIC PANEL (BMP+LFT) High Sensitivity Troponin T with Reflex for ED Chest Pain ECG COMPLETE EKG Orders entered, pending, downstream ED team to follow results Further triage/room assignment per nursing Limited role in this case performing a screening of the patient in triage Further work up, treatment, follow up on testing ordered from triage, further testing, care, disposition, and final MDM per downstream emergency provider team Please see downstream ED providers's notation for full HnP and MDM Christiano Sanderson D.O., FACEP Staff Physician [facility] Emergency Medicine PLEASE NOTE: Portions of the medical record may have been produced using electronic bunghole borer and may contain errors in bunghole borer which have not been identified at the time that the report was finalized. Normal [facility] EKGon 05-06-2024 Electrocardiogram Ventricular Rate : 97 BPM Atrial Rate : 94 BPM P-R Interval : 125 ms QRS Duration : 76 ms Q-T Interval : 365 ms QTC Calculation(Bazett) : 464 ms Calculated P [place] : 15 degrees Calculated R [place] : 6 degrees Calculated T [place] : 52 degrees Sinus rhythm Normal ECG Confirmed by MD SANDERSON BRYAN ([id number]) on 05/06/2024 2:18:36 PM NAME : PATRICIA JAIME PID : [id number] : 2000 Gender : Female Race : Unknown ORD : Procedure Date : May 06 2024 14:12:12 Edit Date : May 06 2024 14:18:38 Diagnosis: Sinus rhythm Normal ECG Confirmed by MD SANDERSON BRYAN ([id number]) on 05/06/2024 2:18:36 PM Test Reason : Location : 402 : [facility]AGE Overread By : MD SANDERSON BRYAN Edited By : MD SANDERSON BRYAN Referred By : , Acquired by : [id number], Normal [facility] HCG QUALITATIVEon 05-06-2024 HCG, QUALITATIVE Negative Normal Negative [facility] Comment on above: Order Comment: Specyran gifford Type: BLOOD SPECIMEN Ordering Facility: [facility] Address: [address] [place] [address] Performed By: #### H CG #### [facility] CLIA [id number] [address] [place] [address] [place] HIGH SENSITIVITY TROPONIN To n 05-06-2024 Troponin T.cardiac High sensitivity method [Mass/Vol] <6 Normal <12 [facility] Comment on above: Order Comment: Dyllan gifford Type: BLOOD SPECIMEN Ordering Facility: [facility] Address: [address] [place] [address] Performed By: #### H STNT, [id number] #### [facility] CLIA [id number] [address] [place] [address] [place] XR CHEST 1V FRONTAL PORTon 0 05-06-2024 XR CHEST 1V FRONTAL PORT * * *Final Repo rt* * * DATE OF EXAM: May 06 2024 2:30PM FVX [id number] - XR CHEST 1V FRONTAL PORT / PROCEDURE REASON: Shortness of breath * * * * Physician Interpretation * * * * EXAMINATION: CHEST RADIOGRAPH (PORTABLE SINGLE VIEW AP) Exam Date/Time: 05/06/2024 2:30 PM CLINICAL HISTORY: Shortness of breath MQ: XCPR_5 Comparison: none available RESULT: Lines, tubes, and devices: None. Lungs and pleura: No consolidation, pleural effusion, or pneumothorax. Cardiomediastinal silhouette: Normal Other: . IMPRESSION: No acute process. 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: PSCB Transcribe Date/Time: May 06 2024 2:40P Dictated by : TERRY LOZANO MD This examination was interpreted and the report reviewed and electronically signed by: TERRY LOZANO MD on May 06 2024 2:40PM EST [id number] Normal [facility] 12 Lead EKGon 04-14-2024 12 Lead EKG [facility] Cardiovascular Services [address] [place] [address] 12 Lead EKG 04/14/24 0722 MR#: [id number] Acct: [id number] Name: PATRICIA JAIME Rep #: [id number] : 2000 24 From: Jeremy Kline MD Attending Dr: Status: DEP ER Ordering Dr: Bairon Landrum DO Date: 04/14/24 Location: ED Sex: F C Admitted: Test Reason : DYSP Blood Pressure : */* mmHG Vent. Rate : 132 BPM Atrial Rate : 132 BPM P-R Int : 138 ms QRS Dur : 74 ms QT Int : 288 ms P-R-T Axes : 86 -41 81 degrees QTcB Int : 426 ms Sinus tachycardia Right atrial enlargement Left axis deviation Pulmonary disease pattern Inferior infarct , age undetermined Abnormal ECG Confirmed by JEREMY KLINE MD ([id number]), sound editor RUTH LACY ([id number]) on 04/16/2024 7:24:53 AM Referred By: NBA Confirmed By: JEREMY KLINE MD 04/16/24 0724 Date Jeremy Kline MD CC: Dr. Bairon Landrum DO; No Primary Care Physician Signed Normal [facility] Emergency Department Summary on 04-14-2024 Emergency Department Summary [facility] Medical Records Department [address] [place] [address] Emergency Department Summary 04/14/24 MR#: [id number] Acct: [id number] Name: PATRICIA JAIME Rep #: [id number] : 2000 24 From: Bairon Landrum DO PCP: Care Physician,No Primary Status:DEP ER Location: ED HPI History of Present Illness Chief Complaint: Asthma Informant: patient Narrative Narrative: 24-year-old female history of allergies asthma and eczema presenting to the emergency room with dyspnea. Patient states that she has had progressively worsening breathing over the past 2 days. She woke during the night with worsening shortness of breath. PFSH PFSH Medical History Anxiety Allergies Seizure Asthma Home Medications ???Medication ???Instructions ???Recorded ???Last Taken ???Type albuterol sulfate 90 mcg/actuation 2 inh inhalation Q4H PRN shortne ss 10/30/23 Unknown History aerosol inhaler (Proventil HFA) of breath or wheezing albuterol sulfate 90 mcg/actuation 2 puff inhalation Q4H PRN PRN Unknown Rx aerosol inhaler (Ventolin HFA) Wheezing ##1 fexofenadine 60 mg tablet (Dottie 60 mg PO BID 10/30/23 Unknown Hi story Allergy) albuterol sulfate 90 mcg/actuation 2 puff inhalation Q4H PRN PRN Unknown Rx aerosol inhaler (Ventolin HFA) Wheezing ##1 prednisone 20 mg tablet 60 mg (3 x 20 mg) PO DAILY #15 08/31 Unknown Rx TABLETS Allergy/AdvReac Type Severity Reaction Status Date / Time No Known Allergies Allergy Verified 04/14/24 06:49 Social History Smoking Status: Never smoker ROS ROS ED Constitutional Constitutional ED: Denies chills, fever(s) or weight loss Eyes Eyes: Denies change in vision or diplopia ENT ENT ED: Denies ear pain, rhinorrhea or sore throat Cardiovascular Cardiovascular: Denies chest pain, orthopnea, palpitations or racing heartbeat Respiratory/Chest Respiratory/Chest: Reports cough, dyspnea and dyspnea on exertion; Denies orthopnea Gastrointestinal Gastrointestinal: Denies abdominal pain, diarrhea, nausea or vomiting Genitourinary Genitourinary ED: Denies dysuria, hematuria or urinary frequency Musculoskeletal Musculoskeletal: Denies arthralgias or myalgias Integumentary Denies abscess or rash Neurologic Neurologic: Denies headache(s) or weakness Psychiatric Psychiatric: Denies anxiety, depression, suicidal ideation or suicidal thoughts Endocrine Endocrinology: Denies polydipsia, polyphagia or polyuria Allergic/Immunologi c Allergic/Immunologi c ED: Denies mouth swelling, tongue swelling or urticaria EXAM Physical Exam Const Vital Signs: 04/14/24 06:48 04/14/24 06:48 04/14/24 06:56 Temperature 97.5 F L Temperature Source Oral Pulse Rate 134 H 112 H Respiratory Rate 24 H Respiratory Effort Short of Breath Respiratory Depth Shallow Respiratory Pattern Tachypnea Blood Pressure 136/83 H Blood Pressure Mean 100 Pulse Ox 91 Oxygen Delivery Method Room Air 04/14/24 07:15 04/14/24 07:26 04/14/24 07:35 Temperature 98 F Temperature Source Pulse Rate 139 H 132 H 134 H Respiratory Rate 26 H 20 H 22 H Respiratory Effort Respiratory Depth Respiratory Pattern Normal Blood Pressure 118/85 H 124/89 H Blood Pressure Mean 96 100 Pulse Ox 93 97 Oxygen Delivery Method Room Air Positive well nourished and well developed General Appearance ED: well developed and NAD HEENT Reports normocephalic, head/scalp atraumatic and moist mucous membranes Eyes PERRL and EOMs intact bilaterally Neck no lymphadenopathy, supple and no JVD Resp normal respiratory effort Auscultation: wheezes expiratory wheezes and inspiratory wheezes Cardio regular rate, regular rhythm and no murmurs Rate: tachycardic GI normal to inspection, nondistended, normoactive bowel sounds and non-tender Palpation: soft Back/Spine no CVA tenderness and normal ROM Extremity normal to inspection General Extremety ED: Negative for edema General Extremity: Negative for edema Neuro oriented x3 and CN's II-XII intact bilaterally Sensorium / Orientation: alert Motor Exam: strength 5/5 throughout Psych mental status grossly normal Mood Affect: Negative for depressed or tearful Skin no wounds Skin Narrative: eczema MDM MDM MDM Narrative Medical decision making narrative: Differential diagnosis includes but not limited to asthma exacerbation pneumonia pneumothorax pleural effusion or bronchitis Patient received prednisone 60 mg as well as 2 DuoNebs. Pulse ox is up to 97%. She is tachycardic and shaky most likely from the albuterol. There are improved breath sounds bilaterally (more content not included)... Normal [facility] Emergency Department Summary on 11-25-2023 Emergency Department Summary [facility] Medical Records Department [address] [place] [address] Emergency Department Summary 11/25/23 MR#: [id number] Acct: [id number] Name: PATRICIA JAIME Rep #: [id number] : 2000 23 From: Maida Buckley DO PCP: Care Physician,No Primary Status:DEP ER Location: ED HPI History of Present Illness Chief Complaint: Asthma Informant: patient Narrative Narrative: Patient 23-year-old female with history of asthma as well as multiple environmental allergies. She is presenting to the ER today for worsening shortness of breath. She states she ran out of her albuterol inhaler 3 to 4 days ago and her breathing's been getting worse. She has associated chest tightness. She states that she uses her inhaler 4-5 times a day. She is post to be on some sort of maintenance inhaler (she thinks it might be Advair) as well as a daily allergy medicine???Dottie but is not good at taking medicines and does not take them regularly. She states that she was seen in the ER about 2 weeks ago for an asthma exacerbation. At that time she had been prescribed steroids but did not take them all the way. She did take 60 mg of prednisone prior to arrival because of her respiratory symptoms. She denies any recent fevers. She notes she recently relocated from [place] to [place] and is living in her boyfriend's basement. She thinks living in the basement is triggering her breathing. No fever reported. No other complaints or concerns at this time. [facility] Medical History Anxiety Allergies Seizure Asthma Home Medications ???Medication ???Instructions ???Recorded ???Last Taken ???Type albuterol sulfate 90 mcg/actuation 2 inh inhalation Q4H PRN shortness 10/30/23 Unknown History aerosol inhaler (Proventil HFA) of breath or wheezing albuterol sulfate 90 mcg/actuation 2 puff inhalation Q4H PRN PRN 10/30/23 Unknown Rx aerosol inhaler (Ventolin HFA) Wheezing ##1 fexofenadine 60 mg tablet (Dottie 60 mg PO BID 10/30/23 Unknown History Allergy) levetiracetam 250 mg tablet 250 mg PO Q12H 11/25/23 Unknown History (Keppra) prednisone 20 mg tablet 40 mg (2 x 20 mg) PO DAILY #8 tabs 11/25/23 Unknown Rx Allergy/AdvReac Type Severity Reaction Status Date / Time No Known Allergies Allergy Verified 11/25/23 19:05 Social History Smoking Status: Never smoker ROS ROS ED Constitutional Constitutional ED: Denies chills or fever(s) Cardiovascular Cardiovascular: Denies chest pain or palpitations Respiratory/Chest Respiratory/Chest: Reports cough and dyspnea; Denies sputum Gastrointestinal Gastrointestinal: Denies nausea or vomiting Neurologic Neurologic: Denies weakness EXAM Physical Exam Const Vital Signs: 11/25/23 19:05 11/25/23 19:23 11/25/23 19:27 Temperature 96.9 F L Temperature Source Temporal Pulse Rate 115 H 100 Respiratory Rate 25 H 18 Respiratory Effort Short of Breath Respiratory Depth Shallow Respiratory Pattern Normal Tachypnea Blood Pressure 134/92 H Blood Pressure Mean 106 Pulse Ox 97 Oxygen Delivery Method Room Air Room Air 11/25/23 20:05 Temperature Temperature Source Pulse Rate 108 H Respiratory Rate 17 Respiratory Effort Respiratory Depth Respiratory Pattern Blood Pressure 124/92 H Blood Pressure Mean 102 Pulse Ox 96 Oxygen Delivery Method Room Air Positive well nourished and well developed General Appearance ED: well developed and NAD HEENT Reports moist mucous membranes Eyes PERRL and EOMs intact bilaterally Neck supple and no JVD Chest Wall Chest Narrative: No chest wall tenderness or crepitus appreciated Resp normal respiratory effort Resp Narrative: Scattered in-store expiratory wheezing especially at the bases present Auscultation: Negative for rhonchi or diminished lung sounds Cardio regular rate and regular rhythm GI non-tender and non-distended Extremity normal to inspection General Extremety ED: Negative for edema General Extremity: Negative for edema Neuro oriented x3 Sensorium / Orientation: alert Motor Exam: Negative for general weakness Psych mental status grossly normal Skin no wounds MDM MDM MDM Narrative Medical decision making narrative: Patient is evaluated for worsening wheezing and chest tightness. She reports this feels like an asthma exacerbation. She reports poorly controlled asthma. Patient received an albuterol treatment prior to my arrival. She states she is feeling much better and her chest tightness has resolved. She is requesting a refill of albuterol inhaler. Patient is also scattered wheezing will be given a second albuterol treatment. Patient states sh (more content not included)... Normal [facility] Chest 1 View (Portable)on Chest 1 View (Portable) [facility] Imaging Services [address] [place] [id number] Chest 1 View (Portable) MR#: [id number] Acct: [id number] Name: PATRICIA JAIME Rep #: [id number] : 2000 F 23 From: Desean Gray MD PCP: Care Physician,No Primary Status: REG ER Study: Chest 1 View (Portable) Date of Exam: 10/30/23 Exam# [id number] Ordering Dr: Bairon Landrum DO -[id number] STUDY: X-RAY CHEST REASON FOR EXAM: Female, 23 years old. Dyspnea TECHNIQUE: Frontal view of the chest COMPARISON: None. FINDINGS: The lungs are clear. There are no pleural effusions. There is no pneumothorax. The heart is normal in size. The visualized osseous structures are within normal limits. RAD/Chest 1 View (Portable) IMPRESSION: No acute thoracic pathology. Electronically Signed: Desean Gray MD at 7:25 EDT , CC: Dr. Bairon Landrum DO; No Primary Care Physician 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: Signed Normal [facility] Emergency Department Summary on 10-30-2023 Emergency Department Summary [facility] Medical Records Department [address] [place] [address] Emergency Department Summary 10/30/23 MR#: [id number] Acct: [id number] Name: PATRICIA JAIME Rep #: [id number] : 2000 23 From: Bairon Landrum DO PCP: Care Physician,No Primary Status:DEP ER Location: ED HPI History of Present Illness Chief Complaint: Asthma Informant: patient and spouse/S.O. Narrative Narrative: 23-year-old female presenting to the emergency room with a chief complaint of asthma. Patient states she has had asthma for many years. Her current therapy includes Advair and her rescue inhaler. She also has a history of allergies as well as eczema. She was seeing pulmonology in [place] but she moved here last weekend. She notes that she has noted over the past couple days she has been using her inhaler more than normal. However when she woke this morning around 5 AM she noted herself to be extremely short of breath. She notes wheezing. No fevers. Minor rhinorrhea. [facility] Medical History Anxiety Allergies Seizure Asthma Home Medications ???Medication ???Instructions ???Recorded ???Last Taken ???Type albuterol sulfate 90 mcg/actuation 2 inh inhalation Q4H PRN shortness 10/30/23 Unknown History aerosol inhaler (Proventil HFA) of breath or wheezing fexofenadine 60 mg tablet (Dottie 60 mg PO BID 10/30/23 Unknown History Allergy) Allergy/AdvReac Type Severity Reaction Status Date / Time No Known Allergies Allergy Verified 10/30/23 05:51 Social History Smoking Status: Never smoker ROS ROS ED Constitutional Constitutional ED: Denies chills, fever(s) or weight loss Eyes Eyes: Denies change in vision or diplopia ENT ENT ED: Reports rhinorrhea; Denies ear pain or sore throat Cardiovascular Cardiovascular: Denies chest pain, orthopnea, palpitations or racing heartbeat Respiratory/Chest Respiratory/Chest: Reports dyspnea and dyspnea on exertion; Denies cough or orthopnea Gastrointestinal Gastrointestinal: Denies abdominal pain, diarrhea, nausea or vomiting Genitourinary Genitourinary ED: Denies dysuria, hematuria or urinary frequency Musculoskeletal Musculoskeletal: Denies arthralgias or myalgias Integumentary Denies abscess or rash Neurologic Neurologic: Denies headache(s) or weakness Psychiatric Psychiatric: Denies anxiety, depression, suicidal ideation or suicidal thoughts Endocrine Endocrinology: Denies polydipsia, polyphagia or polyuria Allergic/Immunologi c Allergic/Immunologi c ED: Denies mouth swelling, tongue swelling or urticaria EXAM Physical Exam Const Vital Signs: 10/30/23 05:50 10/30/23 05:50 10/30/23 06:11 Temperature 96.9 F L Temperature Source Temporal Pulse Rate 147 H 121 H Respiratory Rate 28 H 18 Respiratory Effort Short of Breath Labored Respiratory Pattern Normal Blood Pressure 147/95 H Blood Pressure Mean 112 Pulse Ox 95 Oxygen Delivery Method Room Air 10/30/23 06:25 Temperature Temperature Source Pulse Rate 111 H Respiratory Rate 20 H Respiratory Effort Respiratory Pattern Blood Pressure Blood Pressure Mean Pulse Ox Oxygen Delivery Method Positive well nourished and well developed General Appearance ED: well developed HEENT Reports normocephalic, head/scalp atraumatic and moist mucous membranes Eyes PERRL and EOMs intact bilaterally Neck no lymphadenopathy, supple and no JVD Resp Resp Narrative: Patient appears tachypneic but is not demonstrating any retractions or significant accessory muscle use. Auscultation: wheezes expiratory wheezes, inspiratory wheezes and throughout and diminished lung sounds bilateral and diffuse Cardio regular rate, regular rhythm and no murmurs Rate: tachycardic GI normal to inspection, nondistended, normoactive bowel sounds and non-tender Palpation: soft Back/Spine no CVA tenderness and normal ROM Extremity normal to inspection General Extremety ED: Negative for edema General Extremity: Negative for edema Neuro oriented x3 and CN's II-XII intact bilaterally Sensorium / Orientation: alert Motor Exam: strength 5/5 throughout Psych mental status grossly normal Mood Affect: Negative for depressed or tearful Skin no rashes or lesions noted and no wounds MDM MDM MDM Narrative Medical decision making narrative: Differential diagnosis includes but not limited to acute bronchitis with bronchospasm asthma exacerbation pneumonia pleural effusion pneumothorax My independent interpretation of the chest x-ray is no acute process. Patient received DuoNeb and albuterol aerosols as well as prednisone. Repeat examination finds the patient to (more content not included)... Normal [facility] Vital Signs Date Time Vital Sign Value Performing Clinician Facility 08-02-2024 15:35-0400 Body temperature 97.9 [degF] No Primary Care Physician [facility] 08-02-2024 15:35-0400 Diastolic blood pressure 73 mm[Hg] No Primary Care Physician [facility] 08-02-2024 15:35-0400 Heart rate 84 /min No Primary Care Physician [facility] 08-02-2024 15:35-0400 Respiratory rate 16 /min No Primary Care Physician [facility] 08-02-2024 15:35-0400 SaO2% (BldA) [Mass fraction] 97 % No Primary Care Physician [facility] 08-02-2024 15:35-0400 Systolic blood pressure 108 mm[Hg] No Primary Care Physician [facility] 08-01-2024 20:10-0400 Inhaled oxygen concentration 3 % No Primary Care Physician [facility] 07-31-2024 18:56-0400 Body height 172.72 cm No Primary Care Physician [facility] 07-31-2024 18:56-0400 Body mass index (BMI) [Ratio] 24.7 kg/m2 No Primary Care Physician [facility] 07-31-2024 18:56-0400 Body weight 73.9 kg No Primary Care Physician [facility] 07-31-2024 18:08-0400 Body temperature 99 [degF] No Primary Care Physician [facility] 07-31-2024 18:08-0400 Diastolic blood pressure 77 mm[Hg] No Primary Care Physician [facility] 07-31-2024 18:08-0400 Heart rate 81 /min No Primary Care Physician [facility] 07-31-2024 18:08-0400 Respiratory rate 16 /min No Primary Care Physician [facility] 07-31-2024 18:08-0400 SaO2% (BldA) [Mass fraction] 98 % No Primary Care Physician [facility] 07-31-2024 18:08-0400 Systolic blood pressure 134 mm[Hg] No Primary Care Physician [facility] 07-31-2024 12:17-0400 Body height 172.72 cm No Primary Care Physician [facility] 07-31-2024 12:17-0400 Body mass index (BMI) [Ratio] 24 kg/m2 No Primary Care Physician [facility] 07-31-2024 12:17-0400 Body weight 71.9 kg No Primary Care Physician [facility] 07-12-2024 12:48-0400 Body temperature 98.3 [degF] No Primary Care Physician [facility] 07-12-2024 12:48-0400 Diastolic blood pressure 72 mm[Hg] No Primary Care Physician [facility] 07-12-2024 12:48-0400 Heart rate 78 /min No Primary Care Physician [facility] 07-12-2024 12:48-0400 Respiratory rate 18 /min No Primary Care Physician [facility] 07-12-2024 12:48-0400 SaO2% (BldA) [Mass fraction] 98 % No Primary Care Physician [facility] 07-12-2024 12:48-0400 Systolic blood pressure 118 mm[Hg] No Primary Care Physician [facility] 07-12-2024 06:53-0400 Body mass index (BMI) [Ratio] 23.5 kg/m2 No Primary Care Physician [facility] 07-12-2024 06:53-0400 Body weight 70.1 kg No Primary Care Physician [facility] 07-11-2024 18:17-0400 Body mass index (BMI) [Ratio] 23.5 kg/m2 No Primary Care Physician [facility] 07-11-2024 18:17-0400 Body temperature 96.8 [degF] No Primary Care Physician [facility] 07-11-2024 18:17-0400 Body weight 70.1 kg No Primary Care Physician [facility] 07-11-2024 18:17-0400 Diastolic blood pressure 96 mm[Hg] No Primary Care Physician [facility] 07-11-2024 18:17-0400 Heart rate 130 /min No Primary Care Physician [facility] 07-11-2024 18:17-0400 Respiratory rate 22 /min No Primary Care Physician [facility] 07-11-2024 18:17-0400 SaO2% (BldA) [Mass fraction] 97 % No Primary Care Physician [facility] 07-11-2024 18:17-0400 Systolic blood pressure 148 mm[Hg] No Primary Care Physician [facility] 04-14-2024 07:35-0500 Body temperature 98 [degF] No Primary Care Physician [facility] 04-14-2024 07:35-0500 Diastolic blood pressure 89 mm[Hg] No Primary Care Physician [facility] 04-14-2024 07:35-0500 Heart rate 134 /min No Primary Care Physician [facility] 04-14-2024 07:35-0500 Respiratory rate 22 /min No Primary Care Physician [facility] 04-14-2024 07:35-0500 SaO2% (BldA) [Mass fraction] 97 % No Primary Care Physician [facility] 04-14-2024 07:35-0500 Systolic blood pressure 124 mm[Hg] No Primary Care Physician [facility] 04-14-2024 06:48-0500 Body mass index (BMI) [Ratio] 25.5 kg/m2 No Primary Care Physician [facility] 04-14-2024 06:48-0500 Body weight 74.02 kg No Primary Care Physician [facility] Encounters Encounter Date Encounter Type Care Provider Facility Start: 08-02-2024 Non-patient / Non-visit Dr. Felipe [facility] Work Phone: Start: 08-01-2024 Non-patient / Non-visit Dr. Felipe [facility] Work Phone: Start: 07-31-2024 Non-patient / Non-visit Dr. Maciej cardozo [facility] Work Phone: Start: 07-31-2024 ambulatory Maciej Beach Facility:[facility] Start: 07-31-2024 End: 08-02-2024 Evaluation and management of inpatient Dr. Maciej Beach DO -Medical Surgical 3 Work Phone: Start: 07-12-2024 End: 07-12-2024 Emergency department patient visit Dr. Simone Connolly DO -Emergency Department Work Phone: Start: 07-11-2024 End: 07-11-2024 Emergency department patient visit Dr. Shukri Matias MD -Emergency Department Work Phone: Start: 05-06-2024 Emergency department patient visit Facility:[facility] Start: 04-14-2024 End: 04-14-2024 Emergency department patient visit Dr. Bairon Landrum DO -Emergency Department Work Phone: Start: 11-25-2023 End: 11-25-2023 Emergency department patient visit [facility] Facility:[facility] Start: 10-30-2023 End: 10-30-2023 Emergency department patient visit No Primary Care Physician Facility:[facility] Procedures Date Procedure Procedure Detail Performing Clinician Start: 08-02-2024 Estimated creatinine clearance No Primar y Care Physician Start: 08-01-2024 Magnetic resonance cholangiopancreatography No Primary Care Physician Start: 08-01-2024 Serum inorganic phosphate measurement No Primary Care Physician Start: 08-01-2024 Total iron binding capacity measurement No Primary Care Physician Start: 07-31-2024 Computed tomography of abdomen and pelvis with intravenous contrast No Primary Care Physician Start: 07-31-2024 Urnls dip stick/tablet reagent auto microscopy No Primary Care Physician Start: 07-31-2024 Estimated creatinine clearance No Primar y Care Physician Start: 07-12-2024 Estimated creatinine clearance No Primar y Care Physician Start: 07-12-2024 Oxygen measurement No Primary Care Physician Start: 07-12-2024 CT of abdomen and pelvis without contrast No Primary Care Physician Start: 07-12-2024 Urnls dip stick/tablet reagent auto microscopy No Primary Care Physician Plan of Treatment Date Care Activity Detail Author Start: 08-02-2024 Patient discharge [facility] Start: 08-01-2024 Folic acid measurement, RBC [facility] Start: 08-01-2024 Inhalation therapy procedure [facility] Start: 07-31-2024 Following clinical pathway protocol [facility] Start: 07-31-2024 Ambulation without limitation [facility] Start: 07-31-2024 Assessment of risk of venous thromboembolism [facility] Start: 07-31-2024 Insertion of catheter into peripheral vein [facility] Start: 07-31-2024 Providing care according to standard [facility] Start: 07-31-2024 [facility] Start: 07-31-2024 Magnetic resonance cholangiopancreatography MRCP Abdomen without Contrast [facility] Start: 07-31-2024 Verification routine [facility] Start: 07-31-2024 Admission procedure [facility] Start: 07-31-2024 Hospital admission, emergency, from emergency room, medical nature [facility] Start: 07-12-2024 [facility] Start: 04-14-2024 [facility] Hematocrit [Volume F raction] of Blood [facility] Patient Education [facility] Work Phone: Patient referral [facility] Work Phone: Payers Date Payer Category Payer Self-pay 2023 Unknown [id number] Unknown [id number] [id number] Unknown [id number] 2.16.8 [id number] Unknown [id number] 2.16.8 [id number] Unknown [id number] 2.16.8 [id number] Unknown [id number] 2.16.8 [id number] Unknown [id number] 2.16.8 [id number] Unknown [id number] 2.16.8 [id number] Unknown [id number] 2.16.8 [id number] Unknown [id number] 2.16.8 [id number] Social History Date Type Detail Facility Start: 07-31-2024 End: 07-31-2024 Tobacco smoking status NHIS Never smoked tobacco (finding) [facility] Start: 2000 Sex Assigned At Female [facility] NEGATED: Highlighted row Not [facility] Goals Date Patient Goal Desired Activity /State Functional Status Date Assessment Result Facility 08-02-2024 Functional status Activity Ability Indepe ndent [facility] Work Phone: 08-02-2024 Functional status Patient Activi ty Ambulates;Up ad jose f [facility] Work Phone: Mental Status Date Assessment Result Facility 08-02-2024 Cognitive function Voice/Name [facility] Work Phone: 08-02-2024 Cognitive function Appropriate;Cooperatibelén e [facility] Work Phone: Clinical Notes 07-31-2024 to 08-02-2024 Note Date & Type Note Facility 08-02-2024 Consult note [facility] 08-02-2024 Discharge summary [facility] 08-02-2024 Discharge summary [facility] 08-02-2024 Discharge summary [facility] 08-02-2024 Note [facility] Medical Records Department [address] [place] [address] Discharge Summary 08/02/24 1511 MR#: [id number] Acct: [id number] Name: PATRICIA JAIME Rep #: [id number] : 2000 24 From: Cl Jamison DO PCP: Care Physician,No Primary Status:ADM IN [id number] Providers Date of Admission: 07/31/24 Date of Discharge: 08/02/24 Primary Care Physician: No Primary Care Phys Reason For Visit: PANCREATITIS Diagnosis Discharge Diagnosis (1) Acute alcoholic pancreatitis: Status: Acute Code(s): K85.20 - Alcohol induced acute pancreatitis without necrosis or infection (2) Alcohol abuse: Status: Acute Code(s): F10.10 - Alcohol abuse, uncomplicated Medications at Discharge Home Medications fexofenadine 60 mg tablet (Dottie Allergy) 60 mg PO BID PRN ALLERGIES 10/30/23 albuterol sulfate 0.63 mg/3 mL solution for nebulization 0.63 mg inhalation Q8H PRN shortness of breath or wheezing 07/31/24 albuterol sulfate 90 mcg/actuation aerosol inhaler (Ventolin HFA) 2 puff inhalation Q4H PRN Wheezing 07/31/24 fluticasone propionate 50 mcg/actuation nasal spray,suspension (24 Hour Allergy Relief) 1 spray intranasal DAILY PRN nasal congestion 07/31/24 fluticasone 250 mcg-salmeterol 50 mcg/dose blistr powdr for inhalation (Wixela Inhub) 1 inh inhalation BID asthma 08/01/24 Hospital Course Operations None Procedures - (CT abdomen pelvis with IV contrast, MRCP) Summary of Care Provided Minutes Spent on Discharge: 35 Hospital Course: Patient is a 24-year-old female who presented to [facility] ED on 07/31/2024 with abdominal pain. Hospital course as noted below. Patient discharged home in stable condition on 08/02. 1. Acute pancreatitis ??? Met all 3 criteria with abdominal pain, elevated lipase and fat stranding surrounding the pancreatic head and body on CT imaging. Most likely secondary to heavy alcohol use. CT abdomen pelvis with no gallbladder or liver abnormalities. MRCP confirmed no right upper quadrant issues. Triglycerides normal. Symptoms much improved from admission. Tolerated clear liquid diet well on 08/01. Escalated to regular diet on 08/02 and tolerated well so was stable for discharge home. Pain well-controlled on discharge off pain medication, no need for short course of pain medications on discharge. 2. Alcohol abuse ??? Last drink on 07/30. Typically drinks liquor and will drink up to 1/5 in a day. Reports going stretches of days to weeks without drinking with no withdrawal symptoms. CIWA scores of 0 since admission. Continue folate and thiamine. Continue CIWA protocol for now. Strongly recommended cessation on discharge. 3. Asthma ??? Stable, not in acute exacerbation. Continue home inhalers. 4. Hypokalemia and hypomagnesemia ??? Potassium 3.1, magnesium 1.3 on hospital day 2. Presume secondary to poor oral intake in setting of alcohol use. Repleted as needed. Total clinical time spent by myself addressing the patient's medical issues, reviewing all the data, and collaborating with patient's care team: 35 minutes. Physical Exam Const alert, oriented x3, no apparent distress and average body habitus Constitutional Narrative: Young female, energy improved from admission, laying back comfortably in bed, conversing normally and in no acute distress. General Appearance: cooperative and comfortable HEENT normocephalic, head/scalp atraumatic, hearing grossly normal bilaterally, nasal mucous membranes and turbinates normal and moist oral mucous membranes Eyes PERRL, EOMs intact bilaterally and conjunctivae normal Neck full ROM Chest inspection of chest normal Resp normal respiratory effort, normal air movement, no use of accessory muscles and clear to auscultation bilaterally Cardio regular rate, regular rhythm, no murmurs and peripheral pulses 2+ throughout GI GI Narrative: Mild tenderness to palpation in epigastric region but abdomen otherwise soft and nondistended. Stable. Back/Spine normal ROM Extremity normal to inspection, full ROM and no pedal edema Skin no rashes or lesions noted Psych mental status grossly normal Weight / BMI Weight Weight: 73.9 kg Body Mass Index (BMI) 24.7 ABG / Lab / Microbiology Data 08/02/24 06:59 08/02/24 05:37 Laboratory: Laboratory Results - last 24 hr 08/02/24 05:37: Sodium 130 L, Potassium 3.4, Chloride 102, Carbon Dioxide 16.7 L, Anion Gap 11, BUN 3 L, Creatinine 0.55 L, Estim Creat Clear Calc 157.73, Est GFR (MDRD) Non-Af 130, BUN/Creatinine Ratio 5.3 L, Glucose 95, Calcium 7.3 L 08/02/24 06:59: WBC 7.3, RBC 3.69 L, Hgb 11.8 L, Hct 36.2 L, MCV 98.1, MCH 32.0, MCHC 32.6, RDW Std Deviation 60.2 H, RDW Coeff of Ivy 16.6 H, Plt Count 237, MPV 10.2 Radiography Diagnostic Testing: Radiology Impression (more content not included)... [facility] 08-02-2024 Progress note Note Date/Time August 02, 2024 12:59pm [facility] Medical Records Department [address] [place] [address] Progress Note - Hospitalist 08/02/24 1256 MR#: [id number] Acct: [id number] Name: PATRICIA JAIME Rep #:[id number] : 2000 24 From: Cl mcgovern DO PCP: Care Physician,No Primary Status :ADM IN Location: [place] [address] Reason for Visit Reason for Visit: Diagnoses Alcohol abuse, uncomplicated (07/31/24) Alcohol induced acute pancreatitis without necrosis or infection (07/31/24) Acute pancreatitis without necrosis or infection, unspecified (07/31/24) Subjective Subjective Saw patient at bedside this morning. Patient was sitting up comfortably in bed,conversing normally and in no acute distress. Still has mild abdominal pain butimproved from admission. Tolerated liquid diet well yesterday and this morning and feels very hungry and is looking forward to eating a regular diet for lunch. No other new concerns morning. Objective Data Objective Data Vital Signs: Vital Signs Temp Pulse Resp BP Pulse Ox O2 Del Method FiO2 97.3 F L 84 18 120/79 97 Room Air 3 08/02/24 11:36 08/02/24 11:36 08/02/24 11:36 08/02/24 11:36 08/02/24 11:36 08/02/24 11:36 08/01/24 20:10 Oxygen Delivery Method Room Air Weight: 73.9 kg Body Mass Index (BMI) 24.7 Intake & Output: Intake and Output for Last 24 Hours 07/31/24 08/01/24 08/02/24 23:59 23:59 23:59 Intake Total 1145 / 1145 1000 / 1000 Balance 1145 / 1145 1000 / 1000 Lab / Micro Data 08/02/24 06:59 08/02/24 05:37 Labs: Laboratory Results - last 24 hr 08/02/24 05:37: Sodium 130 L, Potassium 3.4, Chloride 102, Carbon Dioxide 16.7 L, Anion Gap 11, BUN 3 L, Creatinine 0.55 L, Estim Creat Clear Calc 157.73, Est GFR (MDRD) Non-Af 130, BUN/Creatinine Ratio 5.3 L, Glucose 95, Calcium 7.3 L 08/02/24 06:59: WBC 7.3, RBC 3.69 L, Hgb 11.8 L, Hct 36.2 L, MCV 98.1, MCH 32.0,MCHC 32.6, RDW Std Deviation 60.2 H, RDW Coeff of Ivy 16.6 H, Plt Count 237, MPV10.2 Radiography Diagnostic Testing: Radiology Impression MRCP 08/01/24 09:00 IMPRESSION: Pancreatitis. Negative MRCP Reading Location: [facility] Physical Exam Const alert, oriented x3, no apparent distress and average body habitus Constitutional Narrative: Young female, energy improved from admission, laying back comfortably in bed, conversing normally and in no acute distress. General Appearance: cooperative and comfortable HEENT normocephalic, head/scalp atraumatic, hearing grossly normal bilaterally, nasal mucous membranes and turbinates normal and moist oral mucous membranes Eyes PERRL, EOMs intact bilaterally and conjunctivae normal Neck full ROM Chest inspection of chest normal Resp normal respiratory effort, normal air movement, no use of accessory muscles and clear to auscultation bilaterally Cardio regular rate, regular rhythm, no murmurs and peripheral pulses 2+ throughout GI GI Narrative: Mild tenderness to palpation in epigastric region but abdomen otherwise soft andnondistended. Stable. Back/Spine normal ROM Extremity normal to inspection, full ROM and no pedal edema Skin no rashes or lesions noted Psych mental status grossly normal Assessment & Plan Assessment/Plan (1) Acute alcoholic pancreatitis: (2) Alcohol abuse: PLAN: Plan Patient is a 24-year-old female who presented to [facility] ED on 07/31/2024 with abdominal pain. 1. Acute pancreatitis ? Met all 3 criteria with abdominal pain, elevated lipase and fat stranding surrounding the pancreatic head and body on CT imaging. Most likely secondary to heavy alcohol use. CT abdomen pelvis with no gallbladder or liver abnormalities. MRCP confirmed no right upper quadrant issues. Triglycerides normal. Symptoms much improved from admission. Tolerated clear liquid diet well on 08/01. Escalated to regular diet today and if patient tolerates this well, will plan for discharge home this afternoon. Continue pain control with oxycodone and IV Toradol as needed for now. 2. Alcohol abuse ? Last drink on 07/30. Typically drinks liquor and will drink up to 1/5 in a day. Reports going stretches of days to weeks without drinking with no withdrawal symptoms. CIWA scores of 0 since admission. Continue folate and thiamine. Continue CIWA protocol for now. Strongly recommended cessation on discharge. 3. Asthma ? Stable, not in acute exacerbation. Continue home inhalers. 4. Hypokalemia and hypomagnesemia ? Potassium 3.1, magnesium 1.3 on hospital day 2. Presume secondary to poor oral intake in setting of alcohol use. Replete as needed. DVT prophylaxis: Lovenox CODE STATUS: Full code, verified Expected disposition: Home, 1 to 2 days Total clinical time spent by myself addressing the patient's medical issues, reviewing all the data, and collaborating with patient's care team: 35 minutes. Charges/Coding Visit Charges Inpatient E&M: 57627 Subs Hosp L2 08/02/24 1259 <Electronically signed by Cl Jamison DO> Cosigner Signature (if applicable): CC: ~ Signed [facility] Work Phone: 1(482) 730-821505-27-2025 Progress note [facility] Medical Records Department [address] [place] [id number] Progress Note - Hospitalist 08/02/24 1256 MR#: [id number] Acct: [id number] Name: PATRICIA JAIME Rep #:[id number] : 2000 24 From: Cl mcgovern DO PCP: Care Physician,No Primary Status :ADM IN Location: [facility] [id number] Reason for Visit Reason for Visit: Diagnoses Alcohol abuse, uncomplicated (07/31/24) Alcohol induced acute pancreatitis without necrosis or infection (07/31/24) Acute pancreatitis without necrosis or infection, unspecified (07/31/24) Subjective Subjective Saw patient at bedside this morning. Patient was sitting up comfortably in bed,conversing normally and in no acute distress. Still has mild abdominal pain butimproved from admission. Tolerated liquiddiet well yesterday and this morning and feels very hungry and is looking forward to eating a regular diet for lunch. No other new concerns morning. Objective Data Objective Data Vital Signs: Vital Signs Temp Pulse Resp BP Pulse Ox O2 Del Method FiO2 97.3 F L 84 18 120/79 97 Room Air 3 08/02/24 11:36 08/02/24 11:36 08/02/24 11:36 08/02/24 11:36 08/02/24 11:36 08/02/24 11:36 08/01/24 20:10 Oxygen Delivery Method Room Air Weight: 73.9 kg Body Mass Index (BMI) 24.7 Intake & Output: Intake and Output for Last 24 Hours 07/31/24 08/01/24 08/02/24 23:59 23:59 23:59 Intake Total 1145 / 1145 1000 / 1000 Balance 1145 / 1145 1000 / 1000 Lab / Micro Data 08/02/24 06:59 08/02/24 05:37 Labs: Laboratory Results - last 24 hr 08/02/24 05:37: Sodium 130 L, Potassium 3.4, Chloride 102, Carbon Dioxide 16.7 L, Anion Gap 11, BUN3 L, Creatinine 0.55 L, Estim Creat Clear Calc 157.73, Est GFR (MDRD) Non-Af 130, BUN/Creatinine Ratio 5.3 L, Glucose 95, Calcium 7.3 L 08/02/24 06:59: WBC 7.3, RBC 3.69 L, Hgb 11.8 L, Hct 36.2 L, MCV 98.1, MCH 32.0,MCHC 32.6, RDW Std Deviation 60.2 H, RDW Coeff of Ivy 16.6 H, Plt Count 237, MPV10.2 Radiography Diagnostic Testing: Radiology Impression MRCP 08/01/24 09:00 IMPRESSION: Pancreatitis. Negative MRCP Reading Location: [facility] Physical Exam Const alert, oriented x3, no apparent distress and average body habitus Constitutional Narrative: Young female, energy improved from admission, laying back comfortably in bed, conversing normally and in no acute distress. General Appearance: cooperative and comfortable HEENT normocephalic, head/scalp atraumatic, hearing grossly normal bilaterally, nasal mucous membranes and turbinates normal and moist oral mucous membranes Eyes PERRL, EOMs intact bilaterally and conjunctivae normal Neck full ROM Chest inspection of chest normal Resp normal respiratory effort, normal air movement, no use of accessory muscles and clear to auscultation bilaterally Cardio regular rate, regular rhythm, no murmurs and peripheral pulses 2+ throughout GI GI Narrative: Mild tenderness to palpation in epigastric region but abdomen otherwise soft andnondistended. Stable. Back/Spine normal ROM Extremity normal to inspection, full ROM and no pedal edema Skin no rashes or lesions noted Psych mental status grossly normal Assessment & Plan Assessment/Plan (1) Acute alcoholic pancreatitis: (2) Alcohol abuse: PLAN: Plan Patient is a 24-year-old female who presented to [facility] ED on 07/31/2024 with abdominal pain. 1. Acute pancreatitis ? Met all 3 criteria with abdominal pain, elevated lipase and fat stranding surrounding the pancreatic head and body on CT imaging. Most likely secondary to heavy alcohol use. CT abdomen pelvis with no gallbladder or liver abnormalities. MRCP confirmed no right upper quadrant issues. Triglycerides normal. Symptoms much improved from admission. Tolerated clear liquid diet well on 08/01. Escalated to regular diet today and if patient tolerates this well, will plan for discharge home this afternoon. Continue pain control with oxycodone and IV Toradol as needed for now. 2. Alcohol abuse ? Last drink on 07/30. Typically drinks liquor and will drink up to 1/5 in a day. Reports going stretches of days to weeks without drinking with no withdrawal symptoms. CIWA scores of 0 since admission. Continue folate and thiamine. Continue CIWA protocol for now. Strongly recommended cessation on discharge. 3. Asthma ? Stable, not in acute exacerbation. Continue home inhalers. 4. Hypokalemia and hypomagnesemia ? Potassium 3.1, magnesium 1.3 on hospital day 2. Presume secondary to poor oral intake in setting of alcohol use. Replete as needed. DVT prophylaxis: Lovenox CODE STATUS: Full code, verified Expected disposition: Home, 1 to 2 days Total clinical time spent by myself addressing the patient's medical issues, reviewing all the data, and collaborating with patient's care team: 35 minutes. Charges/Coding Visit Charges Inpatient E&M: 05253 Subs Hosp L2 08/02/24 9365 Cosigner Signature (if applicable): CC: ~ Signed [facility]05-26-2025 Progress note Author Cl Jamison [facility] Note Date/Time August 01, 2024 11:03 am [facility] Medical Records Department [address] [place] [address] Progress Note - Hospitalist 08/01/24 1026 MR#: [id number] Acct: [id number] Name: PATRICIA JAIME Rep #:[id number] : 2000 24 From: Cl mcgovern DO PCP: Care Physician,No Primary Status :ADM IN Location: [place] [address] Reason for Visit Reason for Visit: Diagnoses Alcohol abuse, uncomplicated (07/31/24) Acute pancreatitis without necrosis or infection, unspecified (07/31/24) Subjective Subjective Saw patient at bedside this morning. Patient was mildly fatigued appearing and did have mild tenderness to palpation in her upper abdomen but otherwise was laying back comfortably in bed in no acute distress. States she felt much improved this morning compared to yesterday. She had tolerated apple juice thismorning without issue. Still did not have much of an appetite. Denied any alcohol withdrawal symptoms. No other new concerns today. Objective Data Objective Data Vital Signs: Vital Signs Temp Pulse Resp BP Pulse Ox O2 Del Method 98.5 F 86 16 146/102 H 100 Room Air 08/01/24 08:15 08/01/24 08:15 08/01/24 08:15 08/01/24 08:15 08/01/24 08:15 08/01/24 08:15 Oxygen Delivery Method Room Air Weight: 73.9 kg Body Mass Index (BMI) 24.7 Intake & Output: Intake and Output for Last 24 Hours 07/30/24 07/31/24 08/01/24 23:59 23:59 23:59 Intake Total 1145 / 1145 1873.33 / 1873.33 Balance 1145 / 1145 1873.33 / 1873.33 Lab / Micro Data 08/01/24 05:17 08/01/24 05:17 Labs: Laboratory Results - last 24 hr 07/31/24 13:24: WBC 13.3 H, RBC 4.35, Hgb 13.8, Hct 41.9, MCV 96.3, MCH 31.7, MCHC 32.9, RDW Std Deviation 58.4 H, RDW Coeff of Ivy 16.4 H, Plt Count 387, MPV9.9, Immature Gran % (Auto) 0.300, Neut % (Auto) 88.4 H, Lymph % (Auto) 4.5 L, Whitman % (Auto) 3.7, Eos % (Auto) 2.3, Baso % (Auto) 0.8, Absolute Neuts (auto) 11.7 H, Absolute Lymphs (auto) 0.60 L, Nucleated RBC % 0, Sodium 139, Potassium 3.9, Chloride 101, Carbon Dioxide 22.1, Anion Gap 16 H, BUN 5, Creatinine 0.57 L, Estim Creat Clear Calc 152.20, Est GFR (MDRD) Non-Af 129, BUN/Creatinine Ratio8.5 L, Glucose 130 H, Calcium 9.5, Total Bilirubin 0.31, AST 44 H, ALT 23, Alkaline Phosphatase 89, Total Protein 7.2, Albumin 4.1, Globulin 3.1, Albumin/Globulin Ratio 1.3, Lipase 1063 H 07/31/24 14:25: Urine Color Yellow, Urine Clarity Sl. Cloudy, Urine pH 8.0, Ur Specific [place] 1.015, Urine Protein 30 H, Urine Glucose (UA) Normal, Urine Ketones 50 H, Urine Occult Blood Negative, Urine Nitrite Negative, Urine Bilirubin Negative, Urine Urobilinogen Normal, Ur Leukocyte Esterase 25 H, UrineRBC 0 SEEN, Urine WBC 0-5 SEEN, Ur Squamous Epith Cells 0-5 SEEN, Urine Bacteria1+, Urine Mucus 1+, Urine Test Negative 08/01/24 05:17: WBC 10.4, RBC 3.65 L, Hgb 11.8 L, Hct 35.4 L, MCV 97.0, MCH 32.3H, MCHC 33.3, RDW Std Deviation 60.6 H, RDW Coeff of Ivy 16.8 H, Plt Count 298, MPV 10.1, Immature Gran % (Auto) 0.600, Neut % (Auto) 81.0 H, Lymph % (Auto) 9.8L, Whitman % (Auto) 8.0, Eos % (Auto) 0.3, Baso % (Auto) 0.3, Absolute Neuts (auto)8.5 H, Absolute Lymphs (auto) 1.02, Nucleated RBC % 0, Sodium 138, Potassium 3.1L, Chloride 105, Carbon Dioxide 21.7, Anion Gap 12, BUN 6, Creatinine 0.51 L, Estim Creat Clear Calc 170.10, Est GFR (MDRD) Non-Af 133, BUN/Creatinine Ratio 12.1, Glucose 103 H, Calcium 7.5 L, Phosphorus 2.9, Magnesium 1.3 L, Iron 117, TIBC 321, Iron Saturation 36.0, Unsaturated IBC 204 L, Ferritin 54, Total Bilirubin 0.56, AST 24, ALT 15, Alkaline Phosphatase 80, Total Protein 5.9, Albumin 3.5, Globulin 2.3, Albumin/Globulin Ratio 1.5, Triglycerides 52, [id number] 324 Radiography Diagnostic Testing: Radiology Impression Abdomen/Pelvis CT 07/31/24 16:00 IMPRESSION: 1. Findings compatible with acute interstitial edematous pancreatitis (uncomplicated pancreatitis). 2. Diffuse hepatic steatosis. Reading Location: [facility] Physical Exam Const alert, oriented x3, no apparent distress and average body habitus Constitutional Narrative: Young female, mildly fatigued appearing but otherwise laying back comfortably inbed, conversing normally and in no acute distress. General Appearance: cooperative and comfortable HEENT normocephalic, head/scalp atraumatic, hearing grossly normal bilaterally, nasal mucous membranes and turbinates normal and moist oral mucous membranes Eyes PERRL, EOMs intact bilaterally and conjunctivae normal Neck full ROM Chest inspection of chest normal Resp normal respiratory effort, normal air movement, no use of accessory muscles and clear to auscultation bilaterally Cardio regular rate, regular rhythm, no murmurs and peripheral pulses 2+ throughout GI GI Narrative: Mild tenderness to palpation in epigastric region but abdomen otherwise soft andnondistended. Back/Spine normal ROM Extremity normal to inspection, full ROM and no pedal edema Skin no rashes or lesions noted Psych mental status grossly normal Assessment & Plan Assessment/Plan (1) Acute alcoholic pancreatitis: (2) Alcohol abuse: PLAN: Plan Patient is a 24-year-old female who presented to [facility] ED on 07/31/2024 with abdominal pain. 1. Acute pancreatitis ? Met all 3 criteria with abdominal pain, elevated lipase and fat stranding surrounding the pancreatic head and body on CT imaging. Most likely secondary to heavy alcohol use. CT abdomen pelvis with no gallbladder or liver abnormalities. MRCP completed with read pending to further evaluate right upperquadrant. Triglycerides normal. Symptoms improving, will continue clear liquiddiet for today but plan to escalate to regular diet as tolerated tomorrow in preparation for possible discharge home. Pain control with oxycodone, morphine and Toradol as needed. 2. Alcohol abuse ? Last drink on 07/30. Typically drinks liquor and will drink up to 1/5 in a day. Reports going stretches of days to weeks without drinking with no withdrawal symptoms. CIWA scores of 0 since admission. Continue folate and thiamine. Continue CIWA protocol for now. 3. Asthma ? Stable, not in acute exacerbation. Continue home inhalers. 4. Hypokalemia and hypomagnesemia ? Potassium 3.1, magnesium 1.3 on hospital day 2. Presume secondary to poor oral intake in setting of alcohol use. Replete as needed. DVT prophylaxis: Lovenox CODE STATUS: Full code, verified Expected disposition: Home, 1 to 2 days Total clinical time spent by myself addressing the patient's medical issues, reviewing all the data, and collaborating with patient's care team: 35 minutes. Charges/Coding Visit Charges Inpatient E&M: 98999 Subs Hosp L2 08/01/24 1103 <Electronically signed by Cl Jamison DO> Cosigner Signature (if applicable): CC: ~ Signed [facility] Work Phone: 1(294) 369-631405-26-2025 Progress note [facility] Medical Records Department [address] [place] [id number] Progress Note - Hospitalist 08/01/24 1026 MR#: [id number] Acct: [id number] Name: PATRICIA JAIME Rep #:[id number] : 2000 24 From: Cl mcgovern DO PCP: Care Physician,No Primary Status :ADM IN Location: [place] [id number] Reason for Visit Reason for Visit: Diagnoses Alcohol abuse, uncomplicated (07/31/24) Acute pancreatitis without necrosis or infection, unspecified (07/31/24) Subjective Subjective Saw patient at bedside this morning. Patient was mildly fatigued appearing and did have mild tenderness to palpation in her upper abdomen but otherwise was laying back comfortably in bed in no acute distress. States she felt much improved this morning compared to yesterday. She had tolerated apple juice thismorning without issue. Still did not have much of an appetite. Denied any alcohol withdrawal symptoms. No other new concerns today. Objective Data Objective Data Vital Signs: Vital Signs Temp Pulse Resp BP Pulse Ox O2 Del Method 98.5 F 86 16 146/102 H 100 Room Air 08/01/24 08:15 08/01/24 08:15 08/01/24 08:15 08/01/24 08:15 08/01/24 08:15 08/01/24 08:15 Oxygen Delivery Method Room Air Weight: 73.9 kg Body Mass Index (BMI) 24.7 Intake & Output: Intake and Output for Last 24 Hours 07/30/24 07/31/24 08/01/24 23:59 23:59 23:59 Intake Total 1145 / 1145 1873.33 / 1873.33 Balance 1145 / 1145 1873.33 / 1873.33 Lab / Micro Data 08/01/24 05:17 08/01/24 05:17 Labs: Laboratory Results - last 24 hr 07/31/24 13:24: WBC 13.3 H, RBC 4.35, Hgb 13.8, Hct 41.9, MCV 96.3, MCH 31.7, MCHC 32.9, RDW Std Deviation 58.4 H, RDW Coeff of Ivy 16.4 H, Plt Count 387, MPV9.9, Immature Gran % (Auto) 0.300, Neut %(Auto) 88.4 H, Lymph % (Auto) 4.5 L, Whitman % (Auto) 3.7, Eos % (Auto) 2.3, Baso % (Auto) 0.8, Absolute Neuts (auto) 11.7 H, Absolute Lymphs (auto) 0.60 L, Nucleated RBC % 0, Sodium 139, Potassium 3.9,Chloride 101, Carbon Dioxide 22.1, Anion Gap 16 H, BUN 5, Creatinine 0.57 L, Estim Creat Clear Qaqx014.20, Est GFR (MDRD) Non-Af 129, BUN/Creatinine Ratio8.5 L, Glucose 130 H, Calcium 9.5, Total Bilirubin 0.31, AST 44 H, ALT 23, Alkaline Phosphatase 89, Total Protein 7.2, Albumin 4.1, Globulin 3.1, Albumin/Globulin Ratio 1.3, Lipase 1063 H 07/31/24 14:25: Urine Color Yellow, Urine Clarity Sl. Cloudy, Urine pH 8.0, Ur Specific [place] 1.015, Urine Protein 30 H, Urine Glucose (UA) Normal, Urine Ketones 50 H, Urine Occult Blood Negative, Urine Nitrite Negative, Urine Bilirubin Negative, Urine Urobilinogen Normal, Ur Leukocyte Esterase 25 H, UrineRBC 0 SEEN, Urine WBC 0-5 SEEN, Ur Squamous Epith Cells 0-5 SEEN, Urine Bacteria1+, Urine Mucus 1+, Urine Test Negative 08/01/24 05:17: WBC 10.4, RBC 3.65 L, Hgb 11.8 L, Hct 35.4 L, MCV 97.0, MCH 32.3H, MCHC 33.3, RDW Std Deviation 60.6 H, RDW Coeff of Ivy 16.8 H, Plt Count 298, MPV 10.1, Immature Gran % (Auto) 0.600,Neut % (Auto) 81.0 H, Lymph % (Auto) 9.8L, Whitman % (Auto) 8.0, Eos % (Auto) 0.3, Baso % (Auto) 0.3, Absolute Neuts (auto)8.5 H, Absolute Lymphs (auto) 1.02, Nucleated RBC % 0, Sodium 138, Potassium 3.1L, Chloride 105, Carbon Dioxide 21.7, Anion Gap 12, BUN 6, Creatinine 0.51 L, Estim Creat Clear Calc 170.10, Est GFR (MDRD) Non-Af 133, BUN/Creatinine Ratio 12.1, Glucose 103 H, Calcium 7.5 L, Phosphorus 2.9, Magnesium 1.3 L, Iron 117, TIBC 321, Iron Saturation 36.0, Unsaturated IBC 204 L, Ggdlbefy13, Total Bilirubin 0.56, AST 24, ALT 15, Alkaline Phosphatase 80, Total Protein 5.9, Albumin 3.5, Globulin 2.3, Albumin/Globulin Ratio 1.5, Triglycerides 52, [id number] 324 Radiography Diagnostic Testing: Radiology Impression Abdomen/Pelvis CT 07/31/24 16:00 IMPRESSION: 1. Findings compatible with acute interstitial edematous pancreatitis (uncomplicated pancreatitis). 2. Diffuse hepatic steatosis. Reading Location: [facility] Physical Exam Const alert, oriented x3, no apparent distress and average body habitus Constitutional Narrative: Young female, mildly fatigued appearing but otherwise laying back comfortably inbed, conversing normally and in no acute distress. General Appearance: cooperative and comfortable HEENT normocephalic, head/scalp atraumatic, hearing grossly normal bilaterally, nasal mucous membranes and turbinates normal and moist oral mucous membranes Eyes PERRL, EOMs intact bilaterally and conjunctivae normal Neck full ROM Chest inspection of chest normal Resp normal respiratory effort, normal air movement, no use of accessory muscles and clear to auscultation bilaterally Cardio regular rate, regular rhythm, no murmurs and peripheral pulses 2+ throughout GI GI Narrative: Mild tenderness to palpation in epigastric region but abdomen otherwise soft andnondistended. Back/Spine normal ROM Extremity normal to inspection, full ROM and no pedal edema Skin no rashes or lesions noted Psych mental status grossly normal Assessment & Plan Assessment/Plan (1) Acute alcoholic pancreatitis: (2) Alcohol abuse: PLAN: Plan Patient is a 24-year-old female who presented to [facility] ED on 07/31/2024 with abdominal pain. 1. Acute pancreatitis ? Met all 3 criteria with abdominal pain, elevated lipase and fat stranding surrounding the pancreatic head and body on CT imaging. Most likely secondary to heavy alcohol use. CT abdomen pelvis with no gallbladder or liver abnormalities. MRCP completed with read pending to further evaluate right upperquadrant. Triglycerides normal. Symptoms improving, will continue clear liquiddiet for today but plan to escalate to regular diet as tolerated tomorrow in preparation for possible discharge home. Pain control with oxycodone, morphine and Toradol as needed. 2. Alcohol abuse ? Last drink on 07/30. Typically drinks liquor and will drink up to 1/5 in a day. Reports going stretches of days to weeks without drinking with no withdrawal symptoms. CIWA scores of 0 since admission. Continue folate and thiamine. Continue CIWA protocol for now. 3. Asthma ? Stable, not in acute exacerbation. Continue home inhalers. 4. Hypokalemia and hypomagnesemia ? Potassium 3.1, magnesium 1.3 on hospital day 2. Presume secondary to poor oral intake in setting of alcohol use. Replete as needed. DVT prophylaxis: Lovenox CODE STATUS: Full code, verified Expected disposition: Home, 1 to 2 days Total clinical time spent by myself addressing the patient's medical issues, reviewing all the data, and collaborating with patient's care team: 35 minutes. Charges/Coding Visit Charges Inpatient E&M: 64515 Subs Hosp L2 08/01/24 1103 Cosigner Signature (if applicable): CC: ~ Signed [facility]05-25-2025 History and physical note Author Maciej Beach [facility] Note Date/Time July 31, 2024 6:09p m [facility] Medical Records Department [address] [place] [address] H&P Exam - Hospitalist 07/31/24 1801 MR#: [id number] Acct: [id number] Name: PATRICIA JAIME Rep #:[id number] : 2000 24 From: Maciej Beach DO PCP: Care Physician,No Primary Status :ADM IN Location: [facility] [id number] HPI - General General Date of Service: 07/31/24 Chief Complaint: Abdominal pain HPI Narrative PATRICIA JAIME, is a 24 F who presents with 1 day history of abdominal pain. Woke this morning at 06 30 with severe epigastric abdominal pain. Presented to the emergency room where it was noted that her lipase was 1063. CAT scan was ordered and did not show any clear to cholelithiasis but showed interstitial pancreatitis. Patient received pain medications as well as IV fluids. Patient admits to drinking 1/5 of liquor per day. Last drink was sometime last evening. Patient states that she can go days if not months without any alcohol and has no issues with alcohol withdrawal. She denies needs for any support in regards to abstaining from alcohol. Patient denies ever having had pancreatitis in the past. [facility] Medical History Anxiety Allergies Seizure Asthma Home Medications ?Medication ?Instructions ?Recorded ?Last Taken ?Type fexofenadine 60 mg tablet (Dottie 60 mg PO BID PRN KAROL MENDOZA 10/30/23 07/29/24 History Allergy) albuterol sulfate 0.63 mg/3 mL 0.63 mg inhalation Q8H PRN 07/31/24 Unknown History solution for nebulization shortness of breath or wheez ing albuterol sulfate 90 mcg/actuation 2 puff inhalation Q 4H PRN Wheezing 07/31/24 Unknown History aerosol inhaler (Ventolin HFA) fluticasone furoate 200 2 inh inhalation BID 5 Unknown History mcg-vilanterol 25 mcg/dose inhalation powder (Breo Ellipta) fluticasone propionate 50 1 spray intranasal DAILY PRN nasal 07/31/24 Unknown History mcg/actuation nasal congestion spray,suspension (24 Hour Allergy Relief) Allergy/AdvReac Type Severity Reaction Status Date / Time No Known Allergies Allergy Verified 07/31/24 12:18 no significant family history Surgical History no surgical history Social History (Updated 07/31/24 @ 18:[address] Maciej Beach, DO) Smoking Status: Never smoker substance use type: marijuana ROS ROS Narrative Patient actively vomiting. States that the emesis is changed to neon green. All review of systems were negative except as mentioned above in the history of present illness and the other review of systems. Vital Signs Vital Signs Vital Signs: 07/31/24 12:17 07/31/24 12:35 07/31/24 14:17 Temperature 37.2 C 36.6 C Temperature Source Temporal Temporal Pulse Rate 100 100 98 Respiratory Rate 16 16 16 Blood Pressure 148/100 H 148/100 H 154/102 H Blood Pressure Mean 116 116 119 Pulse Ox 98 99 98 Oxygen Delivery Method Room Air 07/31/24 17:00 Temperature Temperature Source Pulse Rate 79 Respiratory Rate 16 Blood Pressure Blood Pressure Mean Pulse Ox 100 Oxygen Delivery Method Weight Weight: 71.9 kg Body Mass Index (BMI) 24.0 Physical Exam Narrative - Physical Exam General: Alert, Oriented x3, Cooperative. Retching while is in her room. HEENT: Atraumatic, PERRLA, EOMI, Normocephalic. Glasses Oral: Moist Mucosa, No Gingival or Mucosal Lesions/ Ulcerations Neck: Supple, No JVD, Negative Carotid Bruits Lungs: Clear to auscultation, Normal air movement Cardiovascular: Regular rate, Normal S1, Normal S2, No murmurs Abdomen: Bowel Sounds Present, Soft, epigastric tenderness. Non-Distended, No Hepato-splenomegaly Extremities: No clubbing, No cyanosis, No edema, Capillary Refill Less than 3 Seconds Skin: No rashes, No breakdown Musculoskeletal: No Tenderness to Palpation of Joints or Extremities Neurological: Moves all extremities spontaneously. Psych/Mental Status: Normal Affect, Appropriate Results Lab / Micro Data 07/31/24 13:24 07/31/24 13:24 Labs: Laboratory Results - last 24 hr 07/31/24 13:24: WBC 13.3 H, RBC 4.35, Hgb 13.8, Hct 41.9, MCV 96.3, MCH 31.7, MCHC 32.9, RDW Std Deviation 58.4 H, RDW Coeff of Ivy 16.4 H, Plt Count 387, MPV9.9, Immature Gran % (Auto) 0.300, Neut % (Auto) 88.4 H, Lymph % (Auto) 4.5 L, Whitman % (Auto) 3.7, Eos % (Auto) 2.3, Baso % (Auto) 0.8, Absolute Neuts (auto) 11.7 H, Absolute Lymphs (auto) 0.60 L, Nucleated RBC % 0, Sodium 139, Potassium 3.9, Chloride 101, Carbon Dioxide 22.1, Anion Gap 16 H, BUN 5, Creatinine 0.57 L, Estim Creat Clear Calc 152.20, Est GFR (MDRD) Non-Af 129, BUN/Creatinine Ratio8.5 L, Glucose 130 H, Calcium 9.5, Total Bilirubin 0.31, AST 44 H, ALT 23, Alkaline Phosphatase 89, Total Protein 7.2, Albumin 4.1, Globulin 3.1, Albumin/Globulin Ratio 1.3, Lipase 1063 H 07/31/24 14:25: Urine Color Yellow, Urine Clarity Sl. Cloudy, Urine pH 8.0, Ur Specific [place] 1.015, Urine Protein 30 H, Urine Glucose (UA) Normal, Urine Ketones 50 H, Urine Occult Blood Negative, Urine Nitrite Negative, Urine Bilirubin Negative, Urine Urobilinogen Normal, Ur Leukocyte Esterase 25 H, UrineRBC 0 SEEN, Urine WBC 0-5 SEEN, Ur Squamous Epith Cells 0-5 SEEN, Urine Bacteria1+, Urine Mucus 1+, Urine Test Negative Imaging Radiology Impression Abdomen/Pelvis CT 07/31/24 16:00 IMPRESSION: 1. Findings compatible with acute interstitial edematous pancreatitis (uncomplicated pancreatitis). 2. Diffuse hepatic steatosis. Reading Location: [id number] Assessment & Plan Assessment/Plan (1) Acute pancreatitis: PLAN: Suspect alcoholic given the patient's large quantities of alcohol that shedrinks on a daily basis. CAT scan did not show any choledocholithiasis. Will check an MRCP. Check triglycerides as well. Supportive management with pain control with PRN acetaminophen, IV ketorolac, oxycodone and IV morphine. Antiemetics with Compazine and Zofran. Will check an MRCP No active GI coverage at this time (though will be available on the ). I do not feel the patient needs any urgent ERCP. Depending on the patient's clinical response and MRI findings, GI consultation may be warranted. Clear liquid diet. . (2) Alcohol abuse: PLAN: Last drink was on the . Patient has gone days and sometimes months without any alcohol and denies any history of alcohol withdrawal symptoms. Thiamine folate and supportive management this time. Patient does start manifesting alcohol withdrawal symptoms then phenobarbital taper would be in order. PLAN: Plan Chronic conditions * Asthma: Stable. Continue with albuterol and Breo Ellipta VTE prophylaxis with enoxaparin Discussed with the patient's significant other at bedside. Charges/Coding Visit Charges Inpatient E&M: 02734 Init Hosp L3 07/31/24 180 <Electronically signed by Maciej Beach DO> Cosigner Signature (if applicable): CC: Dr. Maciej Beach DO; No Primary Care Physician~ Signed [facility] Work Phone: 1(475) 700-783905-25-2025 Evaluation note* Diagnosis Onset Date Resolution Status Admit Date Acute alcoholic pancreatitis acute July 31, 2024 5:57pm Acute pancreatitis acute July 312024 5:57pm Alcohol abuse acute July 31, 025 5:57pm Nausea and vomiting acute July 082024 5:57pm Tobacco use acute July 31 5:57pm [facility] Work Phone: 1(926) 212-110805-25-2025 Discharge summary Author Maciej Nance [facility] Note Date/Time July 31, 2024 5:48p m [facility] Medical Records Department [address] [place] [address] Emergency Department Summary 07/31/24 MR#: [id number] Acct: [id number] Name: PATRICIA JAIME Rep #:[id number] : 2000 From: Maciej Campos PCP: Care Physician,No Primary Status :REG ER Location: ED ADDENDUM by Dr. Evans Scott DO on 07/31/24 at 1748 Patient signed out to me pending CT read after discussion with hospitalist. Acute pancreatitis from labs. CT with pancreatic edema no cyst. No cholelithiasis. Patient vomiting on my reevaluation. States pain not much improved. Ordered for continued IV fluids Zofran morphine. Same other is present states she does have strong alcohol history for the past 2 to 3 years upto 1/5 of liquor a day. She sometimes has morning tremors. Discussed about alcoholic withdrawal seizures. States a year ago she had seizures while she wasdrinking that when she stopped drinking. She stopped for 30 days and did not have seizures. No history of pancreatitis in the past. We discussed with hospitalist Dr. Beach for admission. 07/31/24 1744<Electronically signed by Evans Cedeno> Cosigner Signature (if applicable): cc: No Primary Care Physician ~* Signed HPI History of Present Illness Chief Complaint: Complaint Informant: patient Onset/Context/Timing Onset: Yesterday Context: Gradual Onset Timing: Continuous Quality: Aching Location: Upper abdomen and lower thoracic back Worsened by: Nothing Relieved by: Nothing Narrative Narrative: Patient presents with upper abdominal pain that began yesterday. Patient statesit is gradually getting worse. Patient states her pain is constant. Patient describes it as aching. Patient states it is mainly over the upper abdomen and radiates around to her back. Patient states nothing makes it worse and nothing makes it better. Patient admits to some nausea and vomiting. Patient denies any hematemesis or coffee- ground emesis. Patient denies any diarrhea, melena, or hematochezia. Patient is concerned that she has a urinary tract infection. [facility] Medical History Anxiety Allergies Seizure Asthma Home Medications ?Medication ?Instructions ?Recorded ?Last Taken ?Type albuterol sulfate 90 mcg/actuation 2 inh inhalation Q4 H PRN shortness 10/30/23 Unknown History aerosol inhaler (Proventil HFA) of breath or wheezing albuterol sulfate 90 mcg/actuation 2 puff inhalation Q 4H PRN PRN 10/30/23 Unknown Rx aerosol inhaler (Ventolin HFA) Wheezing ##1 fexofenadine 60 mg tablet (Dottie 60 mg PO BID Unknown History Allergy) albuterol sulfate 90 mcg/actuation 2 puff inhalation Q 4H PRN PRN 04/14/24 Unknown Rx aerosol inhaler (Ventolin HFA) Wheezing ##1 promethazine 25 mg tablet 25 mg PO Q6H PRN nausea and 07/12/24 Unknown Rx vomiting #20 tabs Allergy/AdvReac Type Severity Reaction Status Date / Time No Known Allergies Allergy Verified 07/31/24 12:18 Surgical History no surgical history no surgical history Social History (Updated 07/31/24 @ 13:[address] Maciej Nance, DO) Smoking Status: Current every day smoker ROS ROS ED Constitutional Constitutional ED: Denies chills or fever(s) Eyes Eyes: Denies blurry vision or change in vision ENT ENT ED: Denies rhinorrhea or sore throat Cardiovascular Cardiovascular: Denies chest pain or palpitations Respiratory/Chest Respiratory/Chest: Denies cough or dyspnea Gastrointestinal Gastrointestinal: Reports abdominal pain, nausea and vomiting Genitourinary Genitourinary ED: Denies dysuria or hematuria Musculoskeletal Musculoskeletal: Reports back pain; Denies neck pain Integumentary Denies abscess or rash Neurologic Neurologic: Denies headache(s) or weakness Allergic/Immunologic Allergic/Immunologic ED: Denies mouth swelling or urticaria EXAM Physical Exam Const Vital Signs: 07/31/24 12:17 07/31/24 12:35 07/31/24 14:17 Temperature 99 F 98 F Temperature Source Temporal Temporal Pulse Rate 100 100 98 Respiratory Rate 16 16 16 Blood Pressure 148/100 H 148/100 H 154/102 H Blood Pressure Mean 116 116 119 Pulse Ox 98 99 98 Oxygen Delivery Method Room Air Positive well nourished and well developed Constitutional Narrative: BMI is 24.1 General Appearance ED: well developed and NAD HEENT Reports moist mucous membranes Neck supple and no JVD Resp normal respiratory effort and clear to auscultation bilaterally Cardio regular rate and regular rhythm GI non-distended Palpation: soft and tender epigastric, LUQ and RUQ; Negative for guarding or rebound tenderness present Back/Spine no CVA tenderness Extremity normal to inspection General Extremety ED: Negative for edema or tenderness General Extremity: Negative for edema Neuro oriented x3, CN's II-XII intact bilaterally and no sensory deficits noted Sensorium / Orientation: alert Motor Exam: strength 5/5 throughout Psych mental status grossly normal MDM MDM MDM Narrative Medical decision making narrative: Differential diagnosis includes gastritis, pancreatitis, cholecystitis, cholelithiasis, electrolyte abnormality, urinary tract infection, , anddehydration. CBC will be obtained to assess for leukocytosis and anemia. Comprehensive metabolic profile will be obtained to assess for hepatic function,renal function, and electrolyte abnormality. Lipase will be obtained to assess for pancreatitis. Urinalysis will be obtained to assess for urinary tract infection and hematuria. Urine hCG will be obtained to assess for . History & Record Review Additional record(s) reviewed:: Prior ED visit and Prior labs Lab Data Attestation: I reviewed the patient's lab results. Lab results narrative: CBC was reviewed. There is a mild leukocytosis of 13.3. The remainder is within normal limits. Comprehensive metabolic profile was reviewed. Glucose was slightly elevated at 130. AST was minimally elevated at 44. The remainder was essentially within normal limits. Lipase was reviewed and was elevated at 1063. Urinalysis was reviewed. There is no evidence of urinary tract infectionor hematuria. Urine hCG was reviewed and was negative. Labs: Laboratory Results - last 24 hr 07/31/24 07/31/24 13:24 14:25 WBC 13.3 H RBC 4.35 Hgb 13.8 Hct 41.9 MCV 96.3 MCH 31.7 MCHC 32.9 RDW Std Deviation 58.4 H RDW Coeff of Ivy 16.4 H Plt Count 387 MPV 9.9 Immature Gran % (Auto) 0.300 Neut % (Auto) 88.4 H Lymph % (Auto) 4.5 L Whitman % (Auto) 3.7 Eos % (Auto) 2.3 Baso % (Auto) 0.8 Absolute Neuts (auto) 11.7 H Absolute Lymphs (auto) 0.60 L Nucleated RBC % 0 Sodium 139 Potassium 3.9 Chloride 101 Carbon Dioxide 22.1 Anion Gap 16 H BUN 5 Creatinine 0.57 L Estim Creat Clear Calc 152.20 Est GFR (MDRD) Non-Af 129 BUN/Creatinine Ratio 8.5 L Glucose 130 H Calcium 9.5 Total Bilirubin 0.31 AST 44 H ALT 23 Alkaline Phosphatase 89 Total Protein 7.2 Albumin 4.1 Globulin 3.1 Albumin/Globulin Ratio 1.3 Lipase 1063 H Urine Color Yellow Urine Clarity Sl. Cloudy Urine pH 8.0 Ur Specific [place] 1.015 Urine Protein 30 H Urine Glucose (UA) Normal Urine Ketones 50 H Urine Occult Blood Negative Urine Nitrite Negative Urine Bilirubin Negative Urine Urobilinogen Normal Ur Leukocyte Esterase 25 H Urine RBC 0 SEEN Urine WBC 0-5 SEEN Ur Squamous Epith Cells 0-5 SEEN Urine Bacteria 1+ Urine Mucus 1+ Urine Test Negative Management Discussion w/another healthcare provider: Hospitalist Treatment and Re-Evaluation :: Patient was given IV fluids, morphine, and Zofran. Patient was still having some nausea and vomiting on reevaluation. Because of this, I recommended admission to the hospital. CT scan of the abdomen pelvis will be obtained to assess for cholelithiasis, cholecystitis, pancreatitis and pseudocyst. Case wasdiscussed with the hospitalist. He wanted a call back when the CT scan was doneand then he will admit the patient. Discharge Plan Dx/Rx/DC Orders Clinical Impression: Acute pancreatitis, Nausea and vomiting, Tobacco use Disposition Disposition: Acute Care Hospital [facility] What to do if you have Problems For any increased pain, shortness of breath, bleeding, nausea or vomiting, chestpain, or any unexpected problems, contact your Primary Care Provider. Call [facility] ([phone]) or report to the closest Emergency Room. Call 911 if necessary. 07/31/24 1607 <Electronically signed by Maciej Nance DO> Cosigner Signature (if applicable): CC: No Primary Care Physician ~ Signed [facility] Work Phone: [phone]) [id number] History and physical note [facility] Medical Records Department [address] [place] [address] H&P Exam - Hospitalist 07/31/24 1801 MR#: [id number] Acct: [id number] Name: PATRICIA JAIME Rep #:[id number] : 2000 From: Maciej Beach DO PCP: Care Physician,No Primary Status :ADM IN Location: MS3 CY694-3 HPI - General General Date of Service: 07/31/24 Chief Complaint: Abdominal pain HPI Narrative PATRICIA JAIME, is a 24 F who presents with 1 day history of abdominal pain. Woke this morning at 06 30 with severe epigastric abdominal pain. Presented to the emergency room where it was noted thather lipase was 1063. CAT scan was ordered and did not show any clear to cholelithiasis but showed interstitial pancreatitis. Patient received pain medications as well as IV fluids. Patient admits to drinking 1/5 of liquor per day. Last drink was sometime last evening. Patient states that she can godays if not months without any alcohol and has no issues with alcohol withdrawal. She denies needs for any support in regards to abstaining from alcohol. Patient denies ever having had pancreatitis in the past. [facility] Medical History Anxiety Allergies Seizure Asthma Home Medications ?Medication ?Instructions ?Recorded ?Last Taken ?Type fexofenadine 60 mg tablet (Dottie 60 mg PO BID PRN AL LERGIES 10/30/23 07/29/24 History Allergy) albuterol sulfate 0.63 mg/3 mL 0.63 mg inhalation Q8H PRN 07/31/24 Unknown History solution for nebulization shortness of breath or wheez ing albuterol sulfate 90 mcg/actuation 2 puff inhalation Q 4H PRN Wheezing 07/31/24 Unknown History aerosol inhaler (Ventolin HFA) fluticasone furoate 200 2 inh inhalation BID 5 Unknown History mcg-vilanterol 25 mcg/dose inhalation powder (Breo Ellipta) fluticasone propionate 50 1 spray intranasal DAILY PRN nasal 07/31/24 Unknown History mcg/actuation nasal congestion spray,suspension (24 Hour Allergy Relief) Allergy/AdvReac Type Severity Reaction Status Date / Time No Known Allergies Allergy Verified 07/31/24 12:18 no significant family history Surgical History no surgical history Social History (Updated 07/31/24 @ 18:[address] Maciej Beach DO) Smoking Status: Never smoker substance use type: marijuana ROS ROS Narrative Patient actively vomiting. States that the emesis is changed to neon green. All review of systems were negative except as mentioned above in the history of present illness and the other review of systems. Vital Signs Vital Signs Vital Signs: 07/31/24 12:17 07/31/24 12:35 07/31/24 14:17 Temperature 37.2 C 36.6 C Temperature Source Temporal Temporal Pulse Rate 100 100 98 Respiratory Rate 16 16 16 Blood Pressure 148/100 H 148/100 H 154/102 H Blood Pressure Mean 116 116 119 Pulse Ox 98 99 98 Oxygen Delivery Method Room Air 07/31/24 17:00 Temperature Temperature Source Pulse Rate 79 Respiratory Rate 16 Blood Pressure Blood Pressure Mean Pulse Ox 100 Oxygen Delivery Method Weight Weight: 71.9 kg Body Mass Index (BMI) 24.0 Physical Exam Narrative - Physical Exam General: Alert, Oriented x3, Cooperative. Retching while is in her room. HEENT: Atraumatic, PERRLA, EOMI, Normocephalic. Glasses Oral: Moist Mucosa, No Gingival or Mucosal Lesions/ Ulcerations Neck: Supple, No JVD, Negative Carotid Bruits Lungs: Clear to auscultation, Normal air movement Cardiovascular: Regular rate, Normal S1, Normal S2, No murmurs Abdomen: Bowel Sounds Present, Soft, epigastric tenderness. Non-Distended, No Hepato-splenomegaly Extremities: No clubbing, No cyanosis, No edema, Capillary Refill Less than 3 Seconds Skin: No rashes, No breakdown Musculoskeletal: No Tenderness to Palpation of Joints or Extremities Neurological: Moves all extremities spontaneously. Psych/Mental Status: Normal Affect, Appropriate Results Lab / Micro Data 07/31/24 13:24 07/31/24 13:24 Labs: Laboratory Results - last 24 hr 07/31/24 13:24: WBC 13.3 H, RBC 4.35, Hgb 13.8, Hct 41.9, MCV 96.3, MCH 31.7, MCHC 32.9, RDW Std Deviation 58.4 H, RDW Coeff of Ivy 16.4 H, Plt Count 387, MPV9.9, Immature Gran % (Auto) 0.300, Neut %(Auto) 88.4 H, Lymph % (Auto) 4.5 L, Whitman % (Auto) 3.7, Eos % (Auto) 2.3, Baso % (Auto) 0.8, Absolute Neuts (auto) 11.7 H, Absolute Lymphs (auto) 0.60 L, Nucleated RBC % 0, Sodium 139, Potassium 3.9,Chloride 101, Carbon Dioxide 22.1, Anion Gap 16 H, BUN 5, Creatinine 0.57 L, Estim Creat Clear Ebye264.20, Est GFR (MDRD) Non-Af 129, BUN/Creatinine Ratio8.5 L, Glucose 130 H, Calcium 9.5, Total Bilirubin 0.31, AST 44 H, ALT 23, Alkaline Phosphatase 89, Total Protein 7.2, Albumin 4.1, Globulin 3.1, Albumin/Globulin Ratio 1.3, Lipase 1063 H 07/31/24 14:25: Urine Color Yellow, Urine Clarity Sl. Cloudy, Urine pH 8.0, Ur Specific [place] 1.015, Urine Protein 30 H, Urine Glucose (UA) Normal, Urine Ketones 50 H, Urine Occult Blood Negative, Urine Nitrite Negative, Urine Bilirubin Negative, Urine Urobilinogen Normal, Ur Leukocyte Esterase 25 H, UrineRBC 0 SEEN, Urine WBC 0-5 SEEN, Ur Squamous Epith Cells 0-5 SEEN, Urine Bacteria1+, Urine Mucus 1+, Urine Test Negative Imaging Radiology Impression Abdomen/Pelvis CT 07/31/24 16:00 IMPRESSION: 1. Findings compatible with acute interstitial edematous pancreatitis (uncomplicated pancreatitis). 2. Diffuse hepatic steatosis. Reading Location: [id number] Assessment & Plan Assessment/Plan (1) Acute pancreatitis: PLAN: Suspect alcoholic given the patient's large quantities of alcohol that shedrinks on a daily basis. CAT scan did not show any choledocholithiasis. Will check an MRCP. Check triglycerides as well. Supportive management with pain control with PRN acetaminophen, IV ketorolac, oxycodone and IV morphine. Antiemetics with Compazine and Zofran. Will check an MRCP No active GI coverage at this time (though will be available on the ). I do not feel the patient needs any urgent ERCP. Depending on the patient's clinical response and MRI findings, GI consultation may be warranted. Clear liquid diet. . (2) Alcohol abuse: PLAN: Last drink was on the . Patient has gone days and sometimes months without any alcohol and denies any history of alcohol withdrawal symptoms. Thiamine folate and supportive management this time. Patient does start manifesting alcohol withdrawal symptoms then phenobarbital taper would be in order. PLAN: Plan Chronic conditions * Asthma: Stable. Continue with albuterol and Breo Ellipta VTE prophylaxis with enoxaparin Discussed with the patient's significant other at bedside. Charges/Coding Visit Charges Inpatient E&M: 63905 Init Hosp L3 07/31/24 1809 Cosigner Signature (if applicable): CC: Dr. Maciej Beach DO; No Primary Care Physician~ Signed [facility]05-25-2025 Discharge summary [facility] Medical Records Department [address] [place] [address] Emergency Department Summary 07/31/24 MR#: [id number] Acct: [id number] Name: PATRICIA JAIME Rep #:[id number] : 2000 24 From: Maciej Campos PCP: Care Physician,No Primary Status :REG ER Location: ED ADDENDUM by Dr. Evans Scott DO on 07/31/24 at 1748 Patient signed out to me pending CT read after discussion with hospitalist. Acute pancreatitis fromlabs. CT with pancreatic edema no cyst. No cholelithiasis. Patient vomiting on my reevaluation. States pain not much improved. Ordered for continued IV fluids Zofran morphine. Same other is present states she does have strong alcohol history for the past 2 to 3 years upto 1/5 of liquor a day. She sometimes has morning tremors. Discussed about alcoholic withdrawal seizures. States a year ago she had seizures while she wasdrinking that when she stopped drinking. She stopped for 30 days and did not have seizures. No history of pancreatitis in the past. We discussed with hospitalist Dr. Beach for admission. 07/31/24 1748 Cosigner Signature (if applicable): cc: No Primary Care Physician ~* Signed HPI History of Present Illness Chief Complaint: Complaint Informant: patient Onset/Context/Timing Onset: Yesterday Context: Gradual Onset Timing: Continuous Quality: Aching Location: Upper abdomen and lower thoracic back Worsened by: Nothing Relieved by: Nothing Narrative Narrative: Patient presents with upper abdominal pain that began yesterday. Patient statesit is gradually getting worse. Patient states her pain is constant. Patient describes it as aching. Patient states it ismainly over the upper abdomen and radiates around to her back. Patient states nothing makes it worse and nothing makes it better. Patient admits to some nausea and vomiting. Patient denies any hematemesis or coffee-ground emesis. Patient denies any diarrhea, melena, or hematochezia. Patient is concerned that she has a urinary tract infection. [facility] Medical History Anxiety Allergies Seizure Asthma Home Medications ?Medication ?Instructions ?Recorded ?Last Taken ?Type albuterol sulfate 90 mcg/actuation 2 inh inhalation Q4 H PRN shortness 10/30/23 Unknown History aerosol inhaler (Proventil HFA) of breath or wheezing albuterol sulfate 90 mcg/actuation 2 puff inhalation Q 4H PRN PRN 10/30/23 Unknown Rx aerosol inhaler (Ventolin HFA) Wheezing ##1 fexofenadine 60 mg tablet (Dottie 60 mg PO BID Unknown History Allergy) albuterol sulfate 90 mcg/actuation 2 puff inhalation Q 4H PRN PRN 04/14/24 Unknown Rx aerosol inhaler (Ventolin HFA) Wheezing ##1 promethazine 25 mg tablet 25 mg PO Q6H PRN nausea and 07/12/24 Unknown Rx vomiting #20 tabs Allergy/AdvReac Type Severity Reaction Status Date / Time No Known Allergies Allergy Verified 07/31/24 12:18 Surgical History no surgical history no surgical history Social History (Updated 07/31/24 @ 13:[address] Maciej Nance DO) Smoking Status: Current every day smoker ROS ROS ED Constitutional Constitutional ED: Denies chills or fever(s) Eyes Eyes: Denies blurry vision or change in vision ENT ENT ED: Denies rhinorrhea or sore throat Cardiovascular Cardiovascular: Denies chest pain or palpitations Respiratory/Chest Respiratory/Chest: Denies cough or dyspnea Gastrointestinal Gastrointestinal: Reports abdominal pain, nausea and vomiting Genitourinary Genitourinary ED: Denies dysuria or hematuria Musculoskeletal Musculoskeletal: Reports back pain; Denies neck pain Integumentary Denies abscess or rash Neurologic Neurologic: Denies headache(s) or weakness Allergic/Immunologic Allergic/Immunologic ED: Denies mouth swelling or urticaria EXAM Physical Exam Const Vital Signs: 07/31/24 12:17 07/31/24 12:35 07/31/24 14:17 Temperature 99 F 98 F Temperature Source Temporal Temporal Pulse Rate 100 100 98 Respiratory Rate 16 16 16 Blood Pressure 148/100 H 148/100 H 154/102 H Blood Pressure Mean 116 116 119 Pulse Ox 98 99 98 Oxygen Delivery Method Room Air Positive well nourished and well developed Constitutional Narrative: BMI is 24.1 General Appearance ED: well developed and NAD HEENT Reports moist mucous membranes Neck supple and no JVD Resp normal respiratory effort and clear to auscultation bilaterally Cardio regular rate and regular rhythm GI non-distended Palpation: soft and tender epigastric, LUQ and RUQ; Negative for guarding or rebound tenderness present Back/Spine no CVA tenderness Extremity normal to inspection General Extremety ED: Negative for edema or tenderness General Extremity: Negative for edema Neuro oriented x3, CN's II-XII intact bilaterally and no sensory deficits noted Sensorium / Orientation: alert Motor Exam: strength 5/5 throughout Psych mental status grossly normal MDM MDM MDM Narrative Medical decision making narrative: Differential diagnosis includes gastritis, pancreatitis, cholecystitis, cholelithiasis, electrolyteabnormality, urinary tract infection, , anddehydration. CBC will be obtained to assess forleukocytosis and anemia. Comprehensive metabolic profile will be obtained to assess for hepatic func tion,renal function, and electrolyte abnormality. Lipase will be obtained to assess for pancreatitis. Urinalysis will be obtained to assess for urinary tract infection and hematuria. Urine hCG will be obtained to assess for . History & Record Review Additional record(s) reviewed:: Prior ED visit and Prior labs Lab Data Attestation: I reviewed the patient's lab results. Lab results narrative: CBC was reviewed. There is a mild leukocytosis of 13.3. The remainder is within normal limits. Comprehensive metabolic profile was reviewed. Glucose was slightly elevated at 130. AST was minimally elevated at 44. The remainder was essentially within normal limits. Lipase was reviewed and was elevated at 1063. Urinalysis was reviewed. There is no evidence of urinary tract infectionor hematuria. Urine hCG was reviewed and was negative. Labs: Laboratory Results - last 24 hr 07/31/24 07/31/24 13:24 14:25 WBC 13.3 H RBC 4.35 Hgb 13.8 Hct 41.9 MCV 96.3 MCH 31.7 MCHC 32.9 RDW Std Deviation 58.4 H RDW Coeff of Ivy 16.4 H Plt Count 387 MPV 9.9 Immature Gran % (Auto) 0.300 Neut % (Auto) 88.4 H Lymph % (Auto) 4.5 L Whitman % (Auto) 3.7 Eos % (Auto) 2.3 Baso % (Auto) 0.8 Absolute Neuts (auto) 11.7 H Absolute Lymphs (auto) 0.60 L Nucleated RBC % 0 Sodium 139 Potassium 3.9 Chloride 101 Carbon Dioxide 22.1 Anion Gap 16 H BUN 5 Creatinine 0.57 L Estim Creat Clear Calc 152.20 Est GFR (MDRD) Non-Af 129 BUN/Creatinine Ratio 8.5 L Glucose 130 H Calcium 9.5 Total Bilirubin 0.31 AST 44 H ALT 23 Alkaline Phosphatase 89 Total Protein 7.2 Albumin 4.1 Globulin 3.1 Albumin/Globulin Ratio 1.3 Lipase 1063 H Urine Color Yellow Urine Clarity Sl. Cloudy Urine pH 8.0 Ur Specific [place] 1.015 Urine Protein 30 H Urine Glucose (UA) Normal Urine Ketones 50 H Urine Occult Blood Negative Urine Nitrite Negative Urine Bilirubin Negative Urine Urobilinogen Normal Ur Leukocyte Esterase 25 H Urine RBC 0 SEEN Urine WBC 0-5 SEEN Ur Squamous Epith Cells 0-5 SEEN Urine Bacteria 1+ Urine Mucus 1+ Urine Test Negative Management Discussion w/another healthcare provider: Hospitalist Treatment and Re-Evaluation :: Patient was given IV fluids, morphine, and Zofran. Patient was still having some nausea and vomiting on reevaluation. Because of this, I recommended admission to the hospital. CT scan of the abdomen pelvis will be obtained to assess for cholelithiasis, cholecystitis, pancreatitis and pseudocyst. Case wasdiscussed with the hospitalist. He wanted a call back when the CT scan was doneand then he will admit the patient. Discharge Plan Dx/Rx/DC Orders Clinical Impression: Acute pancreatitis, Nausea and vomiting, Tobacco use Disposition Disposition: Acute Care Hospital [facility] What to do if you have Problems For any increased pain, shortness of breath, bleeding, nausea or vomiting, chestpain, or any unexpected problems, contact your Primary Care Provider. Call [facility] ([phone]) or report tothe closest Emergency Room. Call 911 if necessary. 07/31/24 1609 Cosigner Signature (if applicable): CC: No Primary Care Physician ~ Signed [facility]05-25-2025 Radiology Diagnostic study note [facility] Imaging Services [address] [place] [address] Abdomen/Pelvis W IV Cont ONLY MR#: [id number] Acct: [id number] Name: PATRICIA JAIME Rep #: [id number] : 2000 F 24 From: Alpa Rhodes MD PCP: Care Physician,No Primary Status: REG ER Study:Abdomen/Pelvis W IV Cont ONLY Date of E xam: 07/31/24 Exam# [id number] Ordering Dr: Maciej Nance DO PROCEDURE: ABDOMEN/PELVIS W IV CONT ONLY N/A REASON FOR EXAM: ABDOMINAL PAIN TECHNIQUE: Abdomen and pelvis CT with intravenous contrast. Coronal and Sagittal reconstruction series were provided. PATIENT PREPARATION: Per protocol ORAL CONTRAST TYPE: None. CONTRAST: Isovue 370 VOLUME: 100 mL One or more dose reduction techniques were used (e.g., Automated exposure control, adjustment of the mA and/or kV according to patient size, use of iterative reconstruction technique. RADIATION DOSE SUMMARY: CTDlvol: 20 mGy DLP: 600 mGycm COMPARISON: CT abdomen pelvis 07/12/2024. FINDINGS: Lung bases: Unremarkable. The heart is normal in size. Liver: The liver is normal in size without focal hepatic mass. Diffuse hepatic steatosis. The majorportal veins are patent. No biliary ductal dilation. Gallbladder: No radiopaque stones within the gallbladder. Spleen: Unremarkable. Pancreas: Development of ill-defined stranding and edema within the central mesentery, greatest surrounding the pancreatic head and body. Symmetric enhancement of the pancreatic parenchyma. No discrete fluid collection. Adrenals: No adrenal mass. Kidneys: No hydronephrosis or nephrolithiasis. Bladder: Decompressed. Reproductive Organs: Normal uterine size and contour. Ovaries are unremarkable. Bowel: The bowel loops are normal caliber. No abdominal ascites or free air. Normal appendix. Tracefree fluid within the pelvic cul-de-sac. Lymph nodes: No suspicious lymph node enlargement. Vasculature: The abdominal aorta and IVC are normal. Bones: No aggressive osseous lesions. CT/Abdomen/Pelvis W IV Cont ONLY IMPRESSION: 1. Findings compatible with acute interstitial edematous pancreatitis (uncomplicated pancreatitis). 2. Diffuse hepatic steatosis. Reading Location: [id number] CC: Dr. Maciej Nance DO; No Primary Care Physician ~ 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: Signed [facility]05-25-2025 Discharge summary Author Maciej Nance [facility] Note Date/Time July 31, 2024 5:48p m [facility] Medical Records Department [address] [place] [address] Emergency Department Summary 07/31/24 MR#: [id number] Acct: [id number] Name: PATRICIA JAIME Rep #:[id number] : 2000 24 From: Maciej Campos PCP: Care Physician,No Primary Status :REG ER Location: ED ADDENDUM by Dr. Evans Scott DO on 07/31/24 at 1748 Patient signed out to me pending CT read after discussion with hospitalist. Acute pancreatitis from labs. CT with pancreatic edema no cyst. No cholelithiasis. Patient vomiting on my reevaluation. States pain not much improved. Ordered for continued IV fluids Zofran morphine. Same other is present states she does have strong alcohol history for the past 2 to 3 years upto 1/5 of liquor a day. She sometimes has morning tremors. Discussed about alcoholic withdrawal seizures. States a year ago she had seizures while she wasdrinking that when she stopped drinking. She stopped for 30 days and did not have seizures. No history of pancreatitis in the past. We discussed with hospitalist Dr. Beach for admission. 07/31/24 1748<Electronically signed by Evans Cedeno> Cosigner Signature (if applicable): cc: No Primary Care Physician ~* Signed HPI History of Present Illness Chief Complaint: Complaint Informant: patient Onset/Context/Timing Onset: Yesterday Context: Gradual Onset Timing: Continuous Quality: Aching Location: Upper abdomen and lower thoracic back Worsened by: Nothing Relieved by: Nothing Narrative Narrative: Patient presents with upper abdominal pain that began yesterday. Patient statesit is gradually getting worse. Patient states her pain is constant. Patient describes it as aching. Patient states it is mainly over the upper abdomen and radiates around to her back. Patient states nothing makes it worse and nothing makes it better. Patient admits to some nausea and vomiting. Patient denies any hematemesis or coffee- ground emesis. Patient denies any diarrhea, melena, or hematochezia. Patient is concerned that she has a urinary tract infection. [facility] Medical History Anxiety Allergies Seizure Asthma Home Medications ?Medication ?Instructions ?Recorded ?Last Taken ?Type albuterol sulfate 90 mcg/actuation 2 inh inhalation Q4 H PRN shortness 10/30/23 Unknown History aerosol inhaler (Proventil HFA) of breath or wheezing albuterol sulfate 90 mcg/actuation 2 puff inhalation Q 4H PRN PRN 10/30/23 Unknown Rx aerosol inhaler (Ventolin HFA) Wheezing ##1 fexofenadine 60 mg tablet (Dottie 60 mg PO BID Unknown History Allergy) albuterol sulfate 90 mcg/actuation 2 puff inhalation Q 4H PRN PRN 04/14/24 Unknown Rx aerosol inhaler (Ventolin HFA) Wheezing ##1 promethazine 25 mg tablet 25 mg PO Q6H PRN nausea and 07/12/24 Unknown Rx vomiting #20 tabs Allergy/AdvReac Type Severity Reaction Status Date / Time No Known Allergies Allergy Verified 07/31/24 12:18 Surgical History no surgical history no surgical history Social History (Updated 07/31/24 @ 13:[address] Maciej Nance DO) Smoking Status: Current every day smoker ROS ROS ED Constitutional Constitutional ED: Denies chills or fever(s) Eyes Eyes: Denies blurry vision or change in vision ENT ENT ED: Denies rhinorrhea or sore throat Cardiovascular Cardiovascular: Denies chest pain or palpitations Respiratory/Chest Respiratory/Chest: Denies cough or dyspnea Gastrointestinal Gastrointestinal: Reports abdominal pain, nausea and vomiting Genitourinary Genitourinary ED: Denies dysuria or hematuria Musculoskeletal Musculoskeletal: Reports back pain; Denies neck pain Integumentary Denies abscess or rash Neurologic Neurologic: Denies headache(s) or weakness Allergic/Immunologic Allergic/Immunologic ED: Denies mouth swelling or urticaria EXAM Physical Exam Const Vital Signs: 07/31/24 12:17 07/31/24 12:35 07/31/24 14:17 Temperature 99 F 98 F Temperature Source Temporal Temporal Pulse Rate 100 100 98 Respiratory Rate 16 16 16 Blood Pressure 148/100 H 148/100 H 154/102 H Blood Pressure Mean 116 116 119 Pulse Ox 98 99 98 Oxygen Delivery Method Room Air Positive well nourished and well developed Constitutional Narrative: BMI is 24.1 General Appearance ED: well developed and NAD HEENT Reports moist mucous membranes Neck supple and no JVD Resp normal respiratory effort and clear to auscultation bilaterally Cardio regular rate and regular rhythm GI non-distended Palpation: soft and tender epigastric, LUQ and RUQ; Negative for guarding or rebound tenderness present Back/Spine no CVA tenderness Extremity normal to inspection General Extremety ED: Negative for edema or tenderness General Extremity: Negative for edema Neuro oriented x3, CN's II-XII intact bilaterally and no sensory deficits noted Sensorium / Orientation: alert Motor Exam: strength 5/5 throughout Psych mental status grossly normal MDM MDM MDM Narrative Medical decision making narrative: Differential diagnosis includes gastritis, pancreatitis, cholecystitis, cholelithiasis, electrolyte abnormality, urinary tract infection, , anddehydration. CBC will be obtained to assess for leukocytosis and anemia. Comprehensive metabolic profile will be obtained to assess for hepatic function,renal function, and electrolyte abnormality. Lipase will be obtained to assess for pancreatitis. Urinalysis will be obtained to assess for urinary tract infection and hematuria. Urine hCG will be obtained to assess for . History & Record Review Additional record(s) reviewed:: Prior ED visit and Prior labs Lab Data Attestation: I reviewed the patient's lab results. Lab results narrative: CBC was reviewed. There is a mild leukocytosis of 13.3. The remainder is within normal limits. Comprehensive metabolic profile was reviewed. Glucose was slightly elevated at 130. AST was minimally elevated at 44. The remainder was essentially within normal limits. Lipase was reviewed and was elevated at 1063. Urinalysis was reviewed. There is no evidence of urinary tract infectionor hematuria. Urine hCG was reviewed and was negative. Labs: Laboratory Results - last 24 hr 07/31/24 07/31/24 13:24 14:25 WBC 13.3 H RBC 4.35 Hgb 13.8 Hct 41.9 MCV 96.3 MCH 31.7 MCHC 32.9 RDW Std Deviation 58.4 H RDW Coeff of Ivy 16.4 H Plt Count 387 MPV 9.9 Immature Gran % (Auto) 0.300 Neut % (Auto) 88.4 H Lymph % (Auto) 4.5 L Whitman % (Auto) 3.7 Eos % (Auto) 2.3 Baso % (Auto) 0.8 Absolute Neuts (auto) 11.7 H Absolute Lymphs (auto) 0.60 L Nucleated RBC % 0 Sodium 139 Potassium 3.9 Chloride 101 Carbon Dioxide 22.1 Anion Gap 16 H BUN 5 Creatinine 0.57 L Estim Creat Clear Calc 152.20 Est GFR (MDRD) Non-Af 129 BUN/Creatinine Ratio 8.5 L Glucose 130 H Calcium 9.5 Total Bilirubin 0.31 AST 44 H ALT 23 Alkaline Phosphatase 89 Total Protein 7.2 Albumin 4.1 Globulin 3.1 Albumin/Globulin Ratio 1.3 Lipase 1063 H Urine Color Yellow Urine Clarity Sl. Cloudy Urine pH 8.0 Ur Specific [place] 1.015 Urine Protein 30 H Urine Glucose (UA) Normal Urine Ketones 50 H Urine Occult Blood Negative Urine Nitrite Negative Urine Bilirubin Negative Urine Urobilinogen Normal Ur Leukocyte Esterase 25 H Urine RBC 0 SEEN Urine WBC 0-5 SEEN Ur Squamous Epith Cells 0-5 SEEN Urine Bacteria 1+ Urine Mucus 1+ Urine Test Negative Management Discussion w/another healthcare provider: Hospitalist Treatment and Re-Evaluation :: Patient was given IV fluids, morphine, and Zofran. Patient was still having some nausea and vomiting on reevaluation. Because of this, I recommended admission to the hospital. CT scan of the abdomen pelvis will be obtained to assess for cholelithiasis, cholecystitis, pancreatitis and pseudocyst. Case wasdiscussed with the hospitalist. He wanted a call back when the CT scan was doneand then he will admit the patient. Discharge Plan Dx/Rx/DC Orders Clinical Impression: Acute pancreatitis, Nausea and vomiting, Tobacco use Disposition Disposition: Acute Care Hospital [facility] What to do if you have Problems For any increased pain, shortness of breath, bleeding, nausea or vomiting, chestpain, or any unexpected problems, contact your Primary Care Provider. Call [facility] ([phone]) or report to the closest Emergency Room. Call 911 if necessary. 07/31/24 1607 <Electronically signed by Maciej Nance DO> Cosigner Signature (if applicable): CC: No Primary Care Physician ~ Signed [facility] Work Phone: Consult note Author Paige Bishop [facility] Note Date/Time August 02, 2024 4:24p m [facility] Medical Records Department [address] [place] [address] Counseling Note - Pharmacy 08/02/24 1521 MR#: [id number] Acct: [id number] Name: PATRICIA JAIME Rep #:[id number] : 2000 From: Paige Bishop PCP: Care Physician,No Primary Status :ADM IN Location: [place] [address] Pharmacy [place] Med Reconciliation Pharmacy Service has performed discharge medication reconciliation for this patient. The patient's discharge medication list was reviewed for discrepancies and discrepancies were resolved. Medications at Discharge Home Medications fexofenadine 60 mg tablet (Dottie Allergy) 60 mg PO BID PRN ALLERGIES 10/30/23 albuterol sulfate 0.63 mg/3 mL solution for nebulization 0.63 mg inhalation Q8H PRN shortness of breath or wheezing 07/31/24 albuterol sulfate 90 mcg/actuation aerosol inhaler (Ventolin HFA) 2 puff inhalation Q4H PRN Wheezing 07/31/24 fluticasone propionate 50 mcg/actuation nasal spray,suspension (24 Hour Allergy Relief) 1 spray intranasal DAILY PRN nasal congestion 07/31/24 fluticasone 250 mcg-salmeterol 50 mcg/dose blistr powdr for inhalation (Wixela Inhub) 1 inh inhalation BID asthma 08/01/24 08/02/24 1521 <Electronically signed by Paige Bishop> Date _ Paige Bishop Cosigner Signature (if applicable): Date CC: ~ Signed [facility] Work Phone: Discharge summary Author Cl Jamison [facility] Note Date/Time August 02, 2024 3:12p m [facility] Medical Records Department [address] [place] [address] Instructions for Home/Discharge Instructions 08/02/24 1511 MR#: [id number] Acct: [id number] Name: PATRICIA JAIME Rep #:[id number] : 2000 24 From: Cl mcgovern DO PCP: Care Physician,No Primary Status :ADM IN Discharge Instructions Diet Discharge Diet: No restrictions DC O2, CPAP, BIPAP needs Home O2 Discharge instructions: No Dressing / Incision Discharge Activity: No Restrictions Follow Up Care Test Results: Test results from this visit will be discussed in further detail at your follow- up appointment, if applicable. Discharge Plan Admission Admit Date/Time: 07/31/24 17:57 Primary Reason for Your Visit: abdominal pain Attending Provider: Cl Jamison Primary Care Provider: Care Physician,No Primary Consulting Providers: Maciej Beach Discharge Orders/Prescriptions Prescriptions: Continued fexofenadine [Dottie Allergy] 60 mg tablet 60 mg PO BID PRN (Reason: ALLERGIES) albuterol sulfate 0.63 mg/3 mL solution for nebulization 0.63 mg inhalation Q8H PRN (Reason: shortness of breath or wheezing) fluticasone propionate [24 Hour Allergy Relief] 50 mcg/actuation spray,suspension 1 spray intranasal DAILY PRN (Reason: nasal congestion) Rx Instructions: administer into each nostril albuterol sulfate [Ventolin HFA] 90 mcg/actuation HFA aerosol inhaler 2 puff inhalation Q4H PRN (Reason: Wheezing) Rx Instructions: with spacer fluticasone propion-salmeterol [Wixela Inhub] 250-50 mcg/dose blister with device 1 inh inhalation BID Referrals / Follow Up: Care Physician,No Primary [Primary Care Provider] - Disposition Disposition (needs filled in before D/C Order can be placed): Home, Self Care 08/02/241511<Electronically signed by Cl Jamison DO>Cl Jamison DO CC: Dr. Maciej Beach DO; No Primary Care Physician ~ Signed [facility] Work Phone: Discharge summary Author Cl Jamison [facility] Note Date/Time August 02, 2024 3:14p m [facility] Medical Records Department [address] [place] [address] Discharge Summary 08/02/24 1511 MR#: [id number] Acct: [id number] Name: PATRICIA JAIME Rep #:[id number] : 2000 24 From: Cl mcgovern DO PCP: Care Physician,No Primary Status :ADM IN [id number] Providers Date of Admission: 07/31/24 Date of Discharge: 08/02/24 Primary Care Physician: No Primary Care Phys Reason For Visit: PANCREATITIS Diagnosis Discharge Diagnosis (1) Acute alcoholic pancreatitis: Status: Acute Code(s): K85.20 - Alcohol induced acute pancreatitis without necrosis or infection (2) Alcohol abuse: Status: Acute Code(s): F10.10 - Alcohol abuse, uncomplicated Medications at Discharge Home Medications fexofenadine 60 mg tablet (Dottie Allergy) 60 mg PO BID PRN ALLERGIES 10/30/23 albuterol sulfate 0.63 mg/3 mL solution for nebulization 0.63 mg inhalation Q8H PRN shortness of breath or wheezing 07/31/24 albuterol sulfate 90 mcg/actuation aerosol inhaler (Ventolin HFA) 2 puff inhalation Q4H PRN Wheezing 07/31/24 fluticasone propionate 50 mcg/actuation nasal spray,suspension (24 Hour Allergy Relief) 1 spray intranasal DAILY PRN nasal congestion 07/31/24 fluticasone 250 mcg-salmeterol 50 mcg/dose blistr powdr for inhalation (Wixela Inhub) 1 inh inhalation BID asthma 08/01/24 Hospital Course Operations None Procedures - (CT abdomen pelvis with IV contrast, MRCP) Summary of Care Provided Minutes Spent on Discharge: 35 Hospital Course: Patient is a 24-year-old female who presented to [facility] ED on 07/31/2024 with abdominal pain. Hospital course as noted below. Patient discharged home in stable condition on 08/02. 1. Acute pancreatitis ? Met all 3 criteria with abdominal pain, elevated lipase and fat stranding surrounding the pancreatic head and body on CT imaging. Most likely secondary to heavy alcohol use. CT abdomen pelvis with no gallbladder or liver abnormalities. MRCP confirmed no right upper quadrant issues. Triglycerides normal. Symptoms much improved from admission. Tolerated clear liquid diet well on 08/01. Escalated to regular diet on 08/02 and tolerated well so was stable for discharge home. Pain well-controlled on discharge off pain medication, no need for short course of pain medications on discharge. 2. Alcohol abuse ? Last drink on 07/30. Typically drinks liquor and will drink up to 1/5 in a day. Reports going stretches of days to weeks without drinking with no withdrawal symptoms. CIWA scores of 0 since admission. Continue folate and thiamine. Continue CIWA protocol for now. Strongly recommended cessation on discharge. 3. Asthma ? Stable, not in acute exacerbation. Continue home inhalers. 4. Hypokalemia and hypomagnesemia ? Potassium 3.1, magnesium 1.3 on hospital day 2. Presume secondary to poor oral intake in setting of alcohol use. Repleted as needed. Total clinical time spent by myself addressing the patient's medical issues, reviewing all the data, and collaborating with patient's care team: 35 minutes. Physical Exam Const alert, oriented x3, no apparent distress and average body habitus Constitutional Narrative: Young female, energy improved from admission, laying back comfortably in bed, conversing normally and in no acute distress. General Appearance: cooperative and comfortable HEENT normocephalic, head/scalp atraumatic, hearing grossly normal bilaterally, nasal mucous membranes and turbinates normal and moist oral mucous membranes Eyes PERRL, EOMs intact bilaterally and conjunctivae normal Neck full ROM Chest inspection of chest normal Resp normal respiratory effort, normal air movement, no use of accessory muscles and clear to auscultation bilaterally Cardio regular rate, regular rhythm, no murmurs and peripheral pulses 2+ throughout GI GI Narrative: Mild tenderness to palpation in epigastric region but abdomen otherwise soft andnondistended. Stable. Back/Spine normal ROM Extremity normal to inspection, full ROM and no pedal edema Skin no rashes or lesions noted Psych mental status grossly normal Weight / BMI Weight Weight: 73.9 kg Body Mass Index (BMI) 24.7 ABG / Lab / Microbiology Data 08/02/24 06:59 08/02/24 05:37 Laboratory: Laboratory Results - last 24 hr 08/02/24 05:37: Sodium 130 L, Potassium 3.4, Chloride 102, Carbon Dioxide 16.7 L, Anion Gap 11, BUN 3 L, Creatinine 0.55 L, Estim Creat Clear Calc 157.73, Est GFR (MDRD) Non-Af 130, BUN/Creatinine Ratio 5.3 L, Glucose 95, Calcium 7.3 L 08/02/24 06:59: WBC 7.3, RBC 3.69 L, Hgb 11.8 L, Hct 36.2 L, MCV 98.1, MCH 32.0,MCHC 32.6, RDW Std Deviation 60.2 H, RDW Coeff of Ivy 16.6 H, Plt Count 237, MPV10.2 Radiography Diagnostic Testing: Radiology Impression MRCP 08/01/24 09:00 IMPRESSION: Pancreatitis. Negative MRCP [facility] D/C Instructions DC O2, CPAP, BIPAP Needs Home O2 Discharge instructions: No Meaningful Use Info Meaningful Use Meaningful Use Diagnoses (Choose all that apply): None applicable Ischemic Stroke Statin Dosing Therapy Reference: STATIN DOSE THERAPY REFERENCE: * Patients > 75 years receive moderate or high dose statin therapy. * Patients 75 years or YOUNGER should receive HIGH intensity statin dose unless contraindicated. You will be required to document reason for non-treatment if statin daily dose does not meet guidelines. HIGH DOSE STATIN THERAPY DAILY Atorvastatin > than or = to 40 mg Rosuvastatin > than or = to 20 mg Amlodipine + Atorvastatin > than or = to 2.5/40 mg Ezetimibe + Simvastatin 10/80 mg Simvastatin 80mg Discharge Plan Admission Admit Date/Time: 07/31/24 17:57 Primary Reason for Your Visit: abdominal pain Attending Provider: Cl Jamison Primary Care Provider: Care Physician,No Primary Consulting Providers: Maciej Beach Discharge Orders/Prescriptions Prescriptions: Continued fexofenadine [Dottie Allergy] 60 mg tablet 60 mg PO BID PRN (Reason: ALLERGIES) albuterol sulfate 0.63 mg/3 mL solution for nebulization 0.63 mg inhalation Q8H PRN (Reason: shortness of breath or wheezing) fluticasone propionate [24 Hour Allergy Relief] 50 mcg/actuation spray,suspension 1 spray intranasal DAILY PRN (Reason: nasal congestion) Rx Instructions: administer into each nostril albuterol sulfate [Ventolin HFA] 90 mcg/actuation HFA aerosol inhaler 2 puff inhalation Q4H PRN (Reason: Wheezing) Rx Instructions: with spacer fluticasone propion-salmeterol [Wixela Inhub] 250-50 mcg/dose blister with device 1 inh inhalation BID Referrals / Follow Up: Care Physician,No Primary [Primary Care Provider] - Disposition Disposition (needs filled in before D/C Order can be placed): Home, Self Care Charges/Coding Visit Charges Inpatient E&M: 26004 Disch Hosp >30min 08/02/24 1514 <Electronically signed by Cl Jamison DO> Cosigner Signature (if applicable): CC: Dr. Cl Jamison DO; No Primary Care Physician~ Signed [facility] Work Phone: Discharge summary Author Cl Jamison [facility] Note Date/Time August 02, 2024 3:46p m [facility] Medical Records Department [address] [place] [address] Instructions for Home/Discharge Instructions 08/02/24 1545 MR#: [id number] Acct: [id number] Name: PATRICIA JAIME Rep #:[id number] : 2000 24 From: Cl mcgovern DO PCP: Care Physician,No Primary Status :ADM IN Discharge Instructions Diet Discharge Diet: No restrictions DC O2, CPAP, BIPAP needs Home O2 Discharge instructions: No Dressing / Incision Return to work on:: 08/04/24 Follow Up Care Test Results: Test results from this visit will be discussed in further detail at your follow- up appointment, if applicable. Discharge Plan Admission Admit Date/Time: 07/31/24 17:57 Primary Reason for Your Visit: abdominal pain Attending Provider: Cl Jamison Primary Care Provider: Care Physician,No Primary Consulting Providers: Maciej Beach Instructions Forms: Work Excuse Discharge Orders/Prescriptions Prescriptions: Continued fexofenadine [Dottie Allergy] 60 mg tablet 60 mg PO BID PRN (Reason: ALLERGIES) albuterol sulfate 0.63 mg/3 mL solution for nebulization 0.63 mg inhalation Q8H PRN (Reason: shortness of breath or wheezing) fluticasone propionate [24 Hour Allergy Relief] 50 mcg/actuation spray,suspension 1 spray intranasal DAILY PRN (Reason: nasal congestion) Rx Instructions: administer into each nostril albuterol sulfate [Ventolin HFA] 90 mcg/actuation HFA aerosol inhaler 2 puff inhalation Q4H PRN (Reason: Wheezing) Rx Instructions: with spacer fluticasone propion-salmeterol [Wixela Inhub] 250-50 mcg/dose blister with device 1 inh inhalation BID Referrals / Follow Up: Care Physician,No Primary [Primary Care Provider] - Disposition Disposition (needs filled in before D/C Order can be placed): Home, Self Care 08/02/24 1546<Electronically signed by Cl Jamison DO>Cl Jamison DO CC: Dr. Maciej Beach DO; No Primary Care Physician ~ Signed [facility] Work Phone: Evaluation note* Diagnosis Onset Date Resolution Status Admit Date Acute alcoholic pancreatitis acute July 31, 2024 5:57pm Acute pancreatitis acute July 312024 5:57pm Alcohol abuse acute July 31, 025 5:57pm Nausea and vomiting acute July 082024 5:57pm Tobacco use acute July 31 5:57pm [facility] Work Phone: History and physical note Author Maciej Beach [facility] Note Date/Time July 31, 2024 6:09p m [facility] Medical Records Department [address] [place] [address] H&P Exam - Hospitalist 07/31/24 1801 MR#: [id number] Acct: [id number] Name: PATRICIA JAIME Rep #:[id number] : 2000 24 From: Maciej Beach DO PCP: Care Physician,No Primary Status :ADM IN Location: [id number] HPI - General General Date of Service: 07/31/24 Chief Complaint: Abdominal pain HPI Narrative PATRICIA JAIME, is a 24 F who presents with 1 day history of abdominal pain. Woke this morning at 06 30 with severe epigastric abdominal pain. Presented to the emergency room where it was noted that her lipase was 1063. CAT scan was ordered and did not show any clear to cholelithiasis but showed interstitial pancreatitis. Patient received pain medications as well as IV fluids. Patient admits to drinking 1/5 of liquor per day. Last drink was sometime last evening. Patient states that she can go days if not months without any alcohol and has no issues with alcohol withdrawal. She denies needs for any support in regards to abstaining from alcohol. Patient denies ever having had pancreatitis in the past. [facility] Medical History Anxiety Allergies Seizure Asthma Home Medications ?Medication ?Instructions ?Recorded ?Last Taken ?Type fexofenadine 60 mg tablet (Dottie 60 mg PO BID PRN AL LERGIES 10/30/23 07/29/24 History Allergy) albuterol sulfate 0.63 mg/3 mL 0.63 mg inhalation Q8H PRN 07/31/24 Unknown History solution for nebulization shortness of breath or wheez ing albuterol sulfate 90 mcg/actuation 2 puff inhalation Q 4H PRN Wheezing 07/31/24 Unknown History aerosol inhaler (Ventolin HFA) fluticasone furoate 200 2 inh inhalation BID 5 Unknown History mcg-vilanterol 25 mcg/dose inhalation powder (Breo Ellipta) fluticasone propionate 50 1 spray intranasal DAILY PRN nasal 07/31/24 Unknown History mcg/actuation nasal congestion spray,suspension (24 Hour Allergy Relief) Allergy/AdvReac Type Severity Reaction Status Date / Time No Known Allergies Allergy Verified 07/31/24 12:18 no significant family history Surgical History no surgical history Social History (Updated 07/31/24 @ 18:[address] Maciej Beach DO) Smoking Status: Never smoker substance use type: marijuana ROS ROS Narrative Patient actively vomiting. States that the emesis is changed to neon green. All review of systems were negative except as mentioned above in the history of present illness and the other review of systems. Vital Signs Vital Signs Vital Signs: 07/31/24 12:17 07/31/24 12:35 07/31/24 14:17 Temperature 37.2 C 36.6 C Temperature Source Temporal Temporal Pulse Rate 100 100 98 Respiratory Rate 16 16 16 Blood Pressure 148/100 H 148/100 H 154/102 H Blood Pressure Mean 116 116 119 Pulse Ox 98 99 98 Oxygen Delivery Method Room Air 07/31/24 17:00 Temperature Temperature Source Pulse Rate 79 Respiratory Rate 16 Blood Pressure Blood Pressure Mean Pulse Ox 100 Oxygen Delivery Method Weight Weight: 71.9 kg Body Mass Index (BMI) 24.0 Physical Exam Narrative - Physical Exam General: Alert, Oriented x3, Cooperative. Retching while is in her room. HEENT: Atraumatic, PERRLA, EOMI, Normocephalic. Glasses Oral: Moist Mucosa, No Gingival or Mucosal Lesions/ Ulcerations Neck: Supple, No JVD, Negative Carotid Bruits Lungs: Clear to auscultation, Normal air movement Cardiovascular: Regular rate, Normal S1, Normal S2, No murmurs Abdomen: Bowel Sounds Present, Soft, epigastric tenderness. Non-Distended, No Hepato-splenomegaly Extremities: No clubbing, No cyanosis, No edema, Capillary Refill Less than 3 Seconds Skin: No rashes, No breakdown Musculoskeletal: No Tenderness to Palpation of Joints or Extremities Neurological: Moves all extremities spontaneously. Psych/Mental Status: Normal Affect, Appropriate Results Lab / Micro Data 07/31/24 13:24 07/31/24 13:24 Labs: Laboratory Results - last 24 hr 07/31/24 13:24: WBC 13.3 H, RBC 4.35, Hgb 13.8, Hct 41.9, MCV 96.3, MCH 31.7, MCHC 32.9, RDW Std Deviation 58.4 H, RDW Coeff of Ivy 16.4 H, Plt Count 387, MPV9.9, Immature Gran % (Auto) 0.300, Neut % (Auto) 88.4 H, Lymph % (Auto) 4.5 L, Whitman % (Auto) 3.7, Eos % (Auto) 2.3, Baso % (Auto) 0.8, Absolute Neuts (auto) 11.7 H, Absolute Lymphs (auto) 0.60 L, Nucleated RBC % 0, Sodium 139, Potassium 3.9, Chloride 101, Carbon Dioxide 22.1, Anion Gap 16 H, BUN 5, Creatinine 0.57 L, Estim Creat Clear Calc 152.20, Est GFR (MDRD) Non-Af 129, BUN/Creatinine Ratio8.5 L, Glucose 130 H, Calcium 9.5, Total Bilirubin 0.31, AST 44 H, ALT 23, Alkaline Phosphatase 89, Total Protein 7.2, Albumin 4.1, Globulin 3.1, Albumin/Globulin Ratio 1.3, Lipase 1063 H 07/31/24 14:25: Urine Color Yellow, Urine Clarity Sl. Cloudy, Urine pH 8.0, Ur Specific [place] 1.015, Urine Protein 30 H, Urine Glucose (UA) Normal, Urine Ketones 50 H, Urine Occult Blood Negative, Urine Nitrite Negative, Urine Bilirubin Negative, Urine Urobilinogen Normal, Ur Leukocyte Esterase 25 H, UrineRBC 0 SEEN, Urine WBC 0-5 SEEN, Ur Squamous Epith Cells 0-5 SEEN, Urine Bacteria1+, Urine Mucus 1+, Urine Test Negative Imaging Radiology Impression Abdomen/Pelvis CT 07/31/24 16:00 IMPRESSION: 1. Findings compatible with acute interstitial edematous pancreatitis (uncomplicated pancreatitis). 2. Diffuse hepatic steatosis. Reading Location: [id number] Assessment & Plan Assessment/Plan (1) Acute pancreatitis: PLAN: Suspect alcoholic given the patient's large quantities of alcohol that shedrinks on a daily basis. CAT scan did not show any choledocholithiasis. Will check an MRCP. Check triglycerides as well. Supportive management with pain control with PRN acetaminophen, IV ketorolac, oxycodone and IV morphine. Antiemetics with Compazine and Zofran. Will check an MRCP No active GI coverage at this time (though will be available on the ). I do not feel the patient needs any urgent ERCP. Depending on the patient's clinical response and MRI findings, GI consultation may be warranted. Clear liquid diet. . (2) Alcohol abuse: PLAN: Last drink was on the . Patient has gone days and sometimes months without any alcohol and denies any history of alcohol withdrawal symptoms. Thiamine folate and supportive management this time. Patient does start manifesting alcohol withdrawal symptoms then phenobarbital taper would be in order. PLAN: Plan Chronic conditions * Asthma: Stable. Continue with albuterol and Breo Ellipta VTE prophylaxis with enoxaparin Discussed with the patient's significant other at bedside. Charges/Coding Visit Charges Inpatient E&M: 88179 Init Hosp L3 07/31/24 2142 <Electronically signed by Maciej Beach DO> Cosigner Signature (if applicable): CC: Dr. Maciej Beach, DO; No Primary Care Physician~ Signed [facility] Work Phone: Summary Purpose Family History No Family History Records FoundNo Family History Records Found Advance Directives No Advanced Directives Records Found Advance Directive Response Recorded Date/ Time Living Will No April 14 7:48am Do you have a Healthcare Power of Set Up / Operator? No April 14, 2024 7:48am Do you have a Healthcare Power of Set Up / Operator? No July 11, 2024 6:50pm Do you have a Healthcare Power of Set Up / Operator? No July 12, 2024 6:53am Do you have a Healthcare Power of Set Up / Operator? No July 31, 2024 12:31pm Advance Directive Response Recorded Date/ Time Living Will No April 14 7:48am Do you have a Healthcare Power of Set Up / Operator? No April 14, 2024 7:48am Do you have a Healthcare Power of Set Up / Operator? No July 11, 2024 6:50pm Do you have a Healthcare Power of Set Up / Operator? No July 12, 2024 6:53am Do you have a Healthcare Power of Set Up / Operator? No July 31, 2024 6:46pm Chief Complaint and Reason for Visit Chief Complaint Admit Date sob April 14, 2024 6 :48am DIARRHEA, EPIGATRIC PAIN July 11, 2024 6 :16pm n/v July 12, 2024 6:53am PANCREATITIS July 31, 2024 5:57p m PANCREATITIS July 31, 2024 6:01p m Reason for Visit Admit Date Acute alcoholic pancreatitis July 31, 2 025 5:57pm Acute pancreatitis July 31, 2024 5:57p m Alcohol abuse July 31, 2024 5:57p m Nausea and vomiting July 31, 2024 5:57p m Tobacco use July 31, 2024 5:57p m Chief Complaint Admit Date sob April 14, 2024 6 :48am DIARRHEA, EPIGATRIC PAIN July 11, 2024 6 :16pm n/v July 12, 2024 6:53am PANCREATITIS July 31, 2024 5:57p m PANCREATITIS July 31, 2024 6:01p m PANCREATITIS August 01, 2024 10:26 am PANCREATITIS August 02, 2024 12:56 pm Additional Source Comments INFORMATION SOURCE (unrecogn ized section and content) DATE CREATED AUTHOR 05/08/2024 [facility] DATE CREATED AUTHOR AUTHOR'S NORA ATION 08/10/2024 [facility] Care Teams (unrecognized sec tion and content) Team Status: Active Member Role Status Dates No Primary Care Physician Primary Care Provider Active Team Status: Inactive Member Role Status Dates No Primary Care Physician Primary Care Provider Active Start: April 14, 2024 End: April 14, 2024 Dr. Bairon Landrum DO Attending Provider Active Start: April 14, 2024 End: April 14, 2024 Dr. Bairon Landrum DO Emergency Provider Active Start: April 14, 2024 End: April 14, 2024 Team Status: Inactive Member Role Status Dates No Primary Care Physician Primary Care Provider Active Start: July 11, 2024 End: July 11, 2024 Dr. Shukri Matisa MD Attending Provider Active S tart: July 11, 2024 End: July 11, 2024 Dr. Shukri Matias MD Emergency Provider Active S tart: July 11, 2024 End: July 11, 2024 Team Status: Inactive Member Role Status Dates No Primary Care Physician Primary Care Provider Active Start: July 12, 2024 End: July 12, 2024 Dr. Simone Connolly , Attending Provider Active Start: July 12, 2024 End: July 12, 2024 Dr. Simone Connolly DO Emergency Provider Active Start: July 12, 2024 End: July 12, 2024 Team Status: Active Member Role Status Dates No Primary Care Physician Primary Care Provider Active Start: July 31, 2024 Dr. Maciej Nance , Emergency Provider Active Start: July 31, 2024 Dr. Maciej Beach , Admit Provider Active Star t: July 31, 2024 Dr. Maciej Beach DO Attending Provider Active Start: July 31, 2024 Team Status: Active Member Role Status Dates No Primary Care Physician Primary Care Provider Active Start: July 31, 2024 Dr. Maciej Nance , Emergency Provider Active Start: July 31, 2024 Dr. Maciej Beach , Admit Provider Active Star t: July 31, 2024 Dr. Maciej Beach DO Attending Provider Active Start: July 31, 2024 Dr. Maciej Beach , DO Other Provider Active Star t: July 31, 2024 Team Status: Inactive Member Role Status Dates No Primary Care Physician Primary Care Provider Active Start: July 31, 2024 End: August 02, 2024 Dr. Maciej Nance , DO Emergency Provider Active Start: July 31, 2024 End: August 02, 2024 Dr. Maciej Beach , DO Admit Provider Active Star t: July 31, 2024 End: August 02, 2024 Dr. Maciej Beach DO Other Provider Active Star t: July 31, 2024 End: August 02, 2024 Dr. Cl Jamison , DO Attending Provider Active Start: July 31, 2024 End: August 02, 2024 Team Status: Active Member Role Status Dates No Primary Care Physician Primary Care Provider Active Start: August 01, 2024 Dr. Maciej Nance , DO Emergency Provider Active Start: August 01, 2024 Dr. Maciej Beach , DO Admit Provider Active Star t: August 01, 2024 Dr. Maciej Beach DO Other Provider Active Star t: August 01, 2024 Dr. Cl Jamison , DO Attending Provider Active Start: August 01, 2024 Dr. Cl Jamison , DO Other Provider Active Start: August 01, 2024 Team Status: Active Member Role Status Dates No Primary Care Physician Primary Care Provider Active Start: August 02, 2024 Dr. Maciej Nance , DO Emergency Provider Active Start: August 02, 2024 Dr. Maciej Beach , DO Admit Provider Active Star t: August 02, 2024 Dr. Maciej Beach DO Other Provider Active Star t: August 02, 2024 Dr. Cl Jamison , DO Attending Provider Active Start: August 02, 2024 Dr. Cl Jamison , DO Other Provider Active Start: August 02, 2024 Goals (unrecognized section and content) Goals may be documented in a n alternate section FOR RECORDS PERTAINING TO PATIENTS WHO ARE OR HAVE BEEN ENROLLED IN A CHEMICAL DEPENDENCY/SUBSTANCEABUSE PROGRAM, SOME INFORMATION MAY BE OMITTED. This clinical summary was aggregated from multiple sources. Caution should be exercised in using it in the provision of clinical care. This summary normalizes information from multiple sources, and as a consequence, information in this document may materially change the coding, format and clinical context of patient data. In addition, data may be omitted in some cases. CLINICAL DECISIONS SHOULD BE BASED ON THE PRIMARY CLINICAL RECORDS. [facility] provides no warranty or guarantee of the accuracy or completeness of information in this document.
[2024-09-16 03:52] VITALS: BP 119/73; PULSE 100; RESP 18; TEMP 36.5; O2SAT 97
[2024-09-16] MEDS: Albuterol Sulfate 8 gm Inhaler (60 puffs) 2 PUFF INHALATION (03:52)
== END 2024-09-16 03:58 | disposition home or self-care (01) ==
PROVIDERS: Emergency Provider Emergency Medicine; Visit Provider Emergency Medicine
DX: J45.901 Unspecified asthma with (acute) exacerbation (principal); F41.9 Anxiety disorder, unspecified; Z79.51 Long term (current) use of inhaled steroids
CPT/HCPCS: 94640; 99282